=== PATIENT | female | born 1955 | race Caucasian/White ===

== ENCOUNTER → 2023-08-30 09:41 | Outpatient (REF) | payer OTHER, SELFPAY | LOC: RAD 09:41 | PROVIDERS: ATTENDING PHYSICIAN Family Medicine | DX: R05.9 Cough, unspecified (principal); F17.210 Nicotine dependence, cigarettes, uncomplicated; J40 Bronchitis, not specified as acute or chronic | CPT/HCPCS: 71046 ==

== ENCOUNTER → 2023-09-24 13:31 | Outpatient (REF) | payer OTHER, SELFPAY | LOC: RAD 13:31 | PROVIDERS: ATTENDING PHYSICIAN Family Medicine | DX: F17.210 Nicotine dependence, cigarettes, uncomplicated (principal) | CPT/HCPCS: 71271 ==

== ENCOUNTER 2024-03-13 13:05 | Inpatient (IN) | payer OTHER, SELFPAY ==
[2024-03-13] VITALS (20 sets, daily range): BP systolic 106–189; BP diastolic 77–145; BMI 18.7
--- NOTE | 2024-03-13 11:53 | ED.GENMED ---
History of Present Illness
General
Chief Complaint: Chest Pain
Source: patient and ambulance crew
Exam Limitations: none
Time Seen by Provider: 03/13/24 11:53
Nursing documentation reviewed up to this point in time: agreed with
History of Present Illness
History of Present Illness:
68-year-old female presents emergency department due to shortness of breath. Her family called the ambulance because she was having trouble breathing. She has a history of emphysema. When they arrived she was covered in sweat. EMS performed an
EKG that showed ST elevation. Prehospital STEMI alert called.
Past History
Past History
ED Past Medical History: HTN
ED Past Surgical History: Orthopedic
Social History
Tobacco: Smoker
Alcohol: Daily
Drug: None
Living: with family
Employment: Employed (Part-time)
Family History
Family History: Other (Noncontributory)
Review of Systems
Review of Systems
Allergies reviewed?: Yes
All Other Systems: Not applicable
Constitutional: Reports no symptoms
EENT: Reports no symptoms
Respiratory: Reports cough and trouble breathing
Cardiac: Reports diaphoresis
ABD/GI: Reports no symptoms
: Reports no symptoms
Musculoskeletal: Reports no symptoms
Skin: Reports no symptoms
Neurological: Reports no symptoms
Endocrine: Reports no symptoms
Hematologic/Lymphatic: Reports no symptoms
Psychiatric: Reports no symptoms
Phy Exam
Physical Exam
Physical Exam:
Physical Exam
General: CPAP in place
Neck: supple. no meningeal signs. normal posterior pharynx
Heart: s1/s2 regular rate and rhythm, no murmur. equal radial
pulses.
HEENT: Pupils equal round reactive to light, EOMI
Lungs: Moderate respiratory distress. clear bilaterally
Abdomen: normal bowel sounds. not tender. no CVAT
Neuro: alert and oriented. no focal neurological deficits cranial nerves II through XII intact
Skin: no rash
Psychiatric: well kept. interactive and cooperative
Extremities: no edema. no calf tenderness. negative homans. good distal pulses
Scores
Heart Score for Chest Pain Patients
STEMI patient?: Yes
Course
Orders/Labs/Results
Orders:
Orders
03/13/24 11:46
Electrocardiogram (*1) Urgent
Reason for Study: Chest Pain
EKG- Treatment ONCE
Complete Blood Count/With Diff Urgent
Comprehensive Metabolic Panel Urgent
Heparin 1000 Units/500 ml [Heparin] 1,000 units in 500 ml .ROUTE .STK-MED
Heparin Sodium,Porcine/Ns/Pf [Heparin 2000 Units/1000 ml] 2,000 unit in 1,000 ml .ROUTE .STK-MED
Lidocaine HCl/Pf [Xylocaine-Mpf 1% Vial] 50 mg .ROUTE .STK-MED ONE
Nitroglycerin [Tridil] 1,500 mcg .ROUTE .STK-MED ONE
Verapamil Injectable [Isoptin/Verapamil Injection] 5 mg .ROUTE .STK-MED ONE
MDM/Problems Addressed
Differential Diagnosis Includes:
STEMI, COPD exacerbation
MDM/Problems Addressed:
68-year-old female with STEMI, COPD exacerbation. STEMI alert activated. Patient taken for catheterization by Dr. Acharya. He requested heparin and aspirin. Aspirin was given prehospital. Decadron and DuoNebs were also given. Dr. Croft
requested we not give Brilinta at this time.
Chronic conditions affecting care: HTN and COPD
Acute Exacerbation and/or Progression of Chronic Illness: HTN and COPD
*Pulse Oximetry
Patient hypoxic: no
*EKG
Interpreted by ED Provider?: Yes
EKG Intrepretation Date: 03/13/24
EKG Intrepretation Time: 11:48
Interpretation: abnormal
Comparison EKG: changes noted
Heart Rate: 99
Rate: normal
Rhythm: sinus
[place]: normal axis
Interval: normal interval
QRS Pattern: normal QRS
Ischemia: ST elevation
*Outdoor Power Equipment Mechanic Interpretation
Rate: normal
Interpretation: normal
Heart Rate: 100
Rhythm: sinus
*Critical Care Note
Total Time (30-74mins, 75-104mins- exclusive of procedures): Not Applicable
Data Reviewed
Review of Other/Old Records Reveals: Operative Reports (Prior colonoscopy)
Patient Management
Social determinants of health affecting care: Living situation and Substance abuse (Tobacco and alcohol)
Discussion with other providers: Mine Car Mechanic (Test Engine Evaluator, Dr. Croft)
Escalation/DeEscalation of care consider admission/obs:
Admission to Fine Arts Teacher indicated
ED Attending Note
-
Portions of this chart may have been created with voice recognition software.� Occasional wrong word or��sound alike� substitutions may have occurred due to the inherent limitations of voice recognition software.
Discharge Plan
Departure
Patient Disposition: UPPER DOUBLER
Date of Disposition: 03/13/24
Time of Disposition: 12:01
Admit to: engineer geophysical laboratory
Presentation/result/management discussed w/ accepting MD/DO: Cardiology Dr. Croft
Patient with high blood pressure during this ER visit?: Yes
Condition: Fair
Discharge Problem:
ST elevation (STEMI) myocardial infarction, COPD exacerbation
Prescriptions:
No Action
carvedilol 6.25 MG tablet
6.25 mg PO BID
lisinopril 20 MG tablet
20 mg PO DAILY
fluticasone propionate 1 SPRAY spray,suspension
1 spray intranasal DAILY
bupropion HCl 300 MG tablet extended release 24 hr
300 mg PO DAILY
L.acidoph, paracasei,B. lactis 1 EACH capsule
1 ea PO DAILY
Referrals:
UNKNOWN,NO INTERVIEW [Family Provider] -
Discharge Date and Time
Print Language: TURKMEN
[2024-03-13 12:06] LABS: % Basophils 0.9 % (0-2); % Eosinophils 5.9 % (0-6); % Immature Granulocytes 0.8 % (0-0.5); % Lymphocytes 12.9 % (20.5-51.1); % Monocytes 6.3 % (1.7-9.3); % Neutrophils 73.2 % (42.2-75.2); Absolute Basophils 0.2 10^3/uL (0-0.2); Absolute Immature Granulocytes 0.1 10^3/uL (0-0.05); Absolute Lymphocytes 2.2 10^3/uL (1.2-3.4); Absolute Monocytes 1.1 10^3/uL (0.1-0.6); Absolute Neutrophils 12.3 10^3/uL (1.4-6.5); Hematocrit 39.2 % (37.0-47.0); Hemoglobin 13.4 g/dL (12.0-16.0); Mean Corp Hgb Conc. 34.2 g/dL (33.0-37.0); Mean Corpuscular Hgb 32.3 pg (27.0-31.0); Mean Corpuscular Volume 94.5 fL (81.0-99.0); Mean Platelet Volume 8.4 fL (7.4-10.4); Nucleated Red Blood Cells % 0 %; Platelet Count 400 10^3/uL (130-400); Red Blood Cell Count 4.15 10^6/uL (4.20-5.40); Red Cell Dist. Width 12.7 % (11.5-14.5); White Blood Cell Count 16.8 10^3/uL (4.8-10.8)
[2024-03-13 12:19] LABS: INR 1.05; PT 13.5 Sec (11.4-14.6)
[2024-03-13 12:20] LABS: APTT 27.6 Sec (23.4-35.0)
[2024-03-13 12:20] LABS: ACT-LR - POC 161 Seconds (116-155)
[2024-03-13 12:29] LABS: ALT (SGPT) 30 U/L (0-35); AST (SGOT) 76 U/L (14-36); Albumin 4.1 g/dl (3.5-5.0); Alkaline Phosphatase 59 U/L (38-126); Blood Urea Nitrogen 12 mg/dl (7-17); Calcium 8.6 mg/dl (8.4-10.2); Carbon Dioxide 22 mmol/L (22-30); Chloride 98 mmol/L (98-107); Estimated Creatinine Clearance 46 ml/min; Glucose 210 mg/dl (70-99); Potassium 6.8 mmol/L (3.5-5.1); Sodium 133 mmol/L (135-145); Total Bilirubin 0.6 mg/dl (0.2-1.3); Total Protein 6.2 g/dl (6.3-8.2); eGFR > 60.00
[2024-03-13 12:34] LABS: ACT-LR - POC 155 Seconds (116-155)
[2024-03-13] MEDS: NSS 1000 IV (13:05)
--- NOTE | 2024-03-13 13:23 | CON.CAR ---
Consultation
Consultation Request
Performing Provider: MANOJ Hsu for Feliciano Croft MD
Reason for Consultation: progressive dyspnea/EKG changes
Medical History
-
Chief Complaint: progressive dyspnea, marked diaphoresis
History of Present Illness:
68 y/o, PMH sig for HTN, HLD, impaired fasting glucose, anxiety/depression. Drinks 2 glasses wine daily, 20 year history intermittent tobacco abuse(3-5 cig/daily currently), no FH CAD/CVA/DM.
Presents with 2 week history of dyspnea, wheezing and cough with associated PND, sinus congestion and sore throat. Treated for acute sinusitis with Z-pack which provided some relief but not completely back to normal. Today, she woke with acute
progressive dyspnea and marked diaphoresis. Denies chest pain/palps/LH/dizziness. EMS was called and was found to be hypoxic with SaO2 in the 80s. She was started on bipap and eventually weaned down to 4LNC after given two duonebs and decadron.
Pre-hospital EKG with inferolateral STEMI pattern and brought to ED immediately, given asa 324mg and 3500u heparin and brought urgently to mill labor supervisor.
Past Medical History
Past Medical History: COPD (emphysema), HTN, Hypercholesterolemia and Other (impaired fasting glucose, anxiety/depression, )
Past Surgical History: None
Social History
Tobacco: Smoker (20 year intermittent history, currently 3-5 cig/daily)
Alcohol: Daily (2 glasses wine/daily)
Drug: Marijuana (daily frequent use)
Personal: Single
Living: With Family (lives with daughter/2 grandkids)
Employment: Not Employed
Family History
Family History: Reviewed & Not Pertinent
Allergies / Home Medications
Allergy/AdvReac Type Severity Reaction Status Date / Time
Penicillins Allergy Unknown Verified 03/13/24 11:49
�Medication �Instructions �Recorded �Confirmed �Type
bupropion HCl 300 mg 24 hr tablet, 300 mg PO DAILY 04/06/15 03/13/24 History
extended release
carvedilol 6.25 mg tablet 6.25 mg PO BID 04/06/15 03/13/24 History
fluticasone propionate 50 2 spray intranasal DAILY 04/06/15 03/13/24 History
mcg/actuation nasal
spray,suspension
lisinopril 20 mg tablet 30 mg PO DAILY 04/06/15 03/13/24 History
calcium carbonate 500 mg PO DAILY 03/13/24 03/13/24 History
cholecalciferol (vitamin D3) 50 50 mcg PO DAILY 03/13/24 03/13/24 History
mcg (2,000 unit) capsule (Vitamin
D3)
escitalopram oxalate 5 mg tablet 5 mg PO DAILY 03/13/24 03/13/24 History
lorazepam 0.5 mg tablet 0.5 mg PO Q6HPRN PRN anxiety 03/13/24 03/13/24 History
multivitamin 1 tab PO DAILY 03/13/24 03/13/24 History
Review of Systems
-
History Source: Patient
All other systems: Negative unless noted
Respiratory: Other (mild dyspnea)
Physical Exam
Vital Signs
Temp Pulse Resp BP Pulse Ox
97.6 F 91 20 107/82 100
03/13/24 11:45 03/13/24 12:59 03/13/24 12:59 03/13/24 12:59 03/13/24 12:59
Lab Results
03/13/24 11:56
Troponin I 4.350 ng/ml H* 03/13/24 11:57
Physical Exam
General: Well Developed
HEENT: Normocephalic
Respiratory: Other (mild dyspnea)
Cardiac: S1/S2 and Regular Rhythm
Musculoskeletal: No Edema
Skin: Warm and Dry
Neuro: AO x 3
Impression / Plan
-
68 y/o, PMH sig for HTN, HLD, impaired fasting glucose, anxiety/depression. Drinks 2 glasses wine daily, 20 year history intermittent tobacco abuse(3-5 cig/daily currently), no FH CAD/CVA/DM.
Presents with 2 week history of dyspnea, wheezing and cough with associated post nasal drip, sinus congestion and sore throat. Treated for acute sinusitis with Z-pack which provided some relief but not completely back to normal. Today, she woke with
acute progressive dyspnea and marked diaphoresis. Denies chest pain/palps/LH/dizziness. EMS was called and was found to be hypoxic with SaO2 in the 80s. She was started on bipap and eventually weaned down to 4LNC after given two duonebs and
decadron. Pre-hospital EKG with inferolateral ST elevations and brought to ED immediately, given asa 324mg and 3500u heparin and brought urgently to mill labor supervisor.
LHC 10/7- normal coronary arteries
LV Gram with apical akinesis, c/w takotsubo cardiomyopathy
IMPRESSION:
Acute Takotsubo Cardiomyopathy
Acute hypoxic respiratory failure
Hyperkalemia
HTN
HLD
Elevated fasting glucose
Anxiety/depression
ETOH/Tobacco abuse
PLAN:
Takotsubo Cardiomyopathy
Admit IVU
1st trop 4.35, trend to peak
continue aspirin 81mg daily
new start metoprolol succinate 50mg BID
2D Echo in AM
followup at [facility] at d/c
Acute hypoxic respiratory failure
less O2 requirement, tolerating 4LNC with SaO2>90%
will monitor
Hyperkalemia- 6.8- will repeat stat lab now
consider insulin, kayexalate as needed
repeat in AM
Hyperglycemia- PCP monitoring impaired fasting glucose
will add HgbA1C
likely DM and will have consult as indicated
HTN- SBP 110-120s-
monitor trends on current rx
HLD- check lipid profile in AM, statin as indicated
Substance abuse-
cessation from all tobacco/etoh/marijuana strongly encouraged
nicoderm patch, etoh w/d protocol
Anxiety/depression- continue meds, lorazepam prn
Data Reviewed
-
EKG: Tracing Personally Visualized and interpreted and Report Reviewed by me
Labs: Labs Reviewed by me and Discussed with Physician
[2024-03-13 13:25] LABS: Blood Urea Nitrogen 13 mg/dl (7-17); Calcium 9.2 mg/dl (8.4-10.2); Carbon Dioxide 22 mmol/L (22-30); Chloride 100 mmol/L (98-107); Estimated Creatinine Clearance 52 ml/min; Glucose 154 mg/dl (70-99); Potassium 5.9 mmol/L (3.5-5.1); Sodium 134 mmol/L (135-145); eGFR > 60.00
--- NOTE | 2024-03-13 13:54 | ITS.CL.CATH ---
Survey Research Associate - Catheterization
Cardiac Catheterization
Procedure Report:
LEFT HEART CATHETERIZATION
Date of Procedure: March 13, 2024
Referring: [facility] Emergency Department
PROCEDURES:
1. Left heart catheterization with coronary and single-plane left ventriculography
INDICATION: This is a 68-year-old female with a past medical history notable for chronic shortness of breath, cough, and hypertension as well as poorly controlled anxiety. She was seen by her primary care provider, Thao Douglas NP, on 02/29/2024
with complaints of increased shortness of breath. Her symptoms were felt consistent with maxillary sinusitis and she was placed on azithromycin. She was going to call and schedule an appointment with pulmonary given chronic shortness of breath.
The patient does continue to smoke somewhere between 3 and 6 cigarettes daily and family reports daily heavy marijuana use. She presented to [facility] as a prehospital STEMI alert when 911 was called after the patient developed severe
shortness of breath. Upon arrival to the house the ambulance crew found the patient who was acutely short of breath and diaphoretic. Her electrocardiogram was suggestive of an evolving inferolateral wall myocardial infarction and a prehospital
STEMI alert was activated. She denied any chest discomfort prior to her hospitalization or at the time of arrival. When EMS arrived at her home she was found to be profoundly hypoxic with oxygen saturations in the mid 80's%. She was placed on
BiPAP. Her repeat electrocardiogram demonstrated persistent inferior and anterolateral ST-T changes for which she was referred for emergent coronary angiography
ACCESS: Right common femoral artery given poor right radial pulse
HEMODYNAMICS : (mmHg)
AO (s/d) : 101/72
LV (s/d) : 101/18
LVEDP : 24
CORONARY FINDINGS
DOMINANCE: Left
LEFT MAIN: Normal
LEFT ANTERIOR DESCENDING: The LAD arises normally from the left main and runs in the anterior interventricular groove. The LAD and diagonal have only minor irregularities. The LAD does taper to a small caliber vessel and wraps completely around
the apex supplying a significant portion of the inferior wall.
CIRCUMFLEX: The circumflex is a dominant vessel giving rise to a moderate caliber OM1 that bifurcates proximally into 2 small to medium caliber daughter branches. The circumflex then continues in the AV groove giving rise to a small posterolateral
branch and PDA
RIGHT CORONARY ARTERY: Nondominant
VENTRICULOGRAPHY: Left ventriculography is performed in an DIAMOND projection. The digital single-plane left ventricular ejection fraction is visually estimated at 30%. The base of the heart moves best with mid to distal anterior, apical, and distal
inferior wall hypokinesis. The regional wall motion abnormality is most consistent with Takotsubo's type cardiomyopathy
RADIATION SUMMARY: Fluoro Time (min): 2.3, Dose (mGy): 59, DAP (Gy.cm2) : 5.4
Closure Device: 6 Belgian Angio-Seal RFA
CONCLUSIONS
1. Nonobstructive coronary disease
2. Takotsubo's type cardiomyopathy
RECOMMENDATIONS
1. Will discontinue carvedilol and push oral metoprolol as tolerated
2. Potassium was found to be elevated on admission blood work. Will hold lisinopril.
3. Continue to trend serial troponin
4. Check fasting lipid profile
5. Suspect a significant portion of the underlying shortness of breath may be associated with underlying COPD. Recommend pulmonary evaluation
Copy to: Dr. Rigo Aguilar
--- NOTE | 2024-03-13 14:33 | PTCARENOTE ---
Received patient from the labels molder after cardiac cath via R femoral artery. Oriented to the room and plan of care, reinforced post cath restrictions and length of bedrest. Dressing right groin is dry and intact with a palpable pedal pulse.
Monitoring VS, SR on the the monitor, remains in 2L NC. Daughters at the bedside, call burciaga in reach.
--- NOTE | 2024-03-13 14:54 | HPS.HSE ---
Addendum entered and electronically signed by Rosibel Acuña MD 03/13/24 17:37:
I personally performed a history and physical exam of the patient and discussed management with the resident. I reviewed the resident's note and agree with the documented findings and plan of care HPI/CC.
CVS: S1-S2 normal
Chest: CTA B/L, no wheezes
Abdomen: Soft, NT / Bowel sounds present
Extremities: No edema, normal pulses
TOOL FILER HAND: Non focal exam
CT of the lung-multiple 5 mm nodules bilaterally most of which is groundglass in nature. Mild to moderate centrilobular emphysema
# Possible cardiomyopathy
EKG reviewed by me
Trend troponin
Continue aspirin, metoprolol
Images of cath reviewed with Dr. Croft
Check echo
# Acute hypoxic respiratory failure-on 4 L of oxygen on admission
Likely secondary to COPD
Continue and check chest x-ray
Needs PFTs
Pulmonary evaluation no wheezing on exam
Sputum cultures if possible
# Acute hyperkalemia-repeat
Hold lisinopril
If repeat is high then give Lokelma
# Hyperglycemia-check hemoglobin A1c
# Hypertension-continue beta-blockers. Hold lisinopril
# Hyperlipidemia-check lipid profile
# Marijuana use, smoking-cessation counseling
# Daily alcohol use-add thiamine
# Anxiety-continue lorazepam, Wellbutrin, Lexapro
# DVT prophylaxis-Lovenox
# Full code
Discussed with cardiology
Discussed with multiple family members at bedside
Original Note:
Family Physician
-
Family Physician: Dr. Rigo Aguilar
Chief Complaint
-
SOB/diaphoresis
History of Present Illness
This is a 68-year-old female patient with PMH of HTN, HLD, impaired fasting glucose and anxiety/depression who presented to the ER with shortness of breath and diaphoresis. She states that she started to suddenly feel short of breath since last
night but worsened today morning diaphoresis. She denies any chest pain, dizziness, headaches or loss of consciousness. She also denies paroxsymal nocturnal dyspnea. She does admit to experiencing increased emotional events concerning her personal
life/family that caused her stress over the past week. She states that she can walk around fine at home but gets tired after climbing one flight of stairs but has never experienced this level of difficulty in breathing before. She used her inhaler
at home which provided mild relief.
She lives with her daughter, continues to be a current smoker and has a 40-[id number] history of smoking cigarettes. Daughter states that patient also smokes a large amount of marijuana.
EMS services was called by her family due to her SOB and EKG performed which showed STEMI. After arrival to the hospital, trops were increased and patient taken to laboratory technical specialist.
Medical History
Past Medical History
Past Medical History: Reports HTN and Hypercholesterolemia
Additional Past Medical History:
Anxiety/Depression
Past Surgical History: Reports None
Social History
Tobacco: Smoker (20 year intermittent history, currently 3-5 cig/daily)
Alcohol: Daily (2 glasses of wine)
Drug: None
Living: With Family
Family History
Family History: Not pertinent
Allergies / Home Medications
Allergies reflects when Allergies were last updated in [facility].
Home Medications with original date entered in [facility]
Allergy/Medication List:
Allergies
Allergy/AdvReac Type Severity Reaction Status Date / Time
amoxicillin [From Augmentin] Allergy Intermediate diarrhea Verified 03/13/24 14:10
clavulanic acid Allergy Intermediate diarrhea Verified 03/13/24 14:10
[From Augmentin]
Sulfa (Sulfonamide Allergy Intermediate Rash Verified 03/13/24 14:10
Antibiotics)
cefuroxime [From Ceftin] Allergy Rash Verified 03/13/24 14:10
Penicillins Allergy Hives Verified 03/13/24 14:10
Home Medications
bupropion HCl 300 mg 24 hr tablet, extended release 300 mg PO DAILY 04/06/15
carvedilol 6.25 mg tablet 6.25 mg PO BID 04/06/15
fluticasone propionate 50 mcg/actuation nasal spray,suspension 2 spray intranasal DAILY 04/06/15
lisinopril 20 mg tablet 30 mg PO DAILY 04/06/15
calcium carbonate 500 mg PO DAILY 03/13/24
cholecalciferol (vitamin D3) 50 mcg (2,000 unit) capsule (Vitamin D3) 50 mcg PO DAILY 03/13/24
escitalopram oxalate 5 mg tablet 5 mg PO DAILY 03/13/24
lorazepam 0.5 mg tablet 0.5 mg PO Q6HPRN PRN anxiety 03/13/24
multivitamin 1 tab PO DAILY 03/13/24
Review of Systems
-
Constitutional: Reports No Symptoms
EENT: Reports No Symptoms
Respiratory: Reports Trouble Breathing
Cardiac: Reports No Symptoms
Abdomen/GI: Reports No Symptoms
Neurological: Reports No Symptoms
Physical Exam
Vital Signs
Vital Signs
Temp Pulse Resp BP Pulse Ox
97.6 F 95 24 113/83 99
03/13/24 11:45 03/13/24 13:15 03/13/24 13:15 03/13/24 13:12 03/13/24 13:40
Physical Exam
General: No Apparent Distress
HEENT: NormoCephalic
Respiratory: Clear
Cardiac: S1/S2 and Regular Rhythm
GI: Soft, Non Tender and Non Distended
Musculoskeletal: No Clubbing and No Edema
Skin: Warm and Dry
Neuro: Awake, Alert and Oriented
Laboratory Results
-
03/13/24 11:56
03/13/24 12:43
Laboratory Results
PT 13.5 Sec (11.4-14.6) 03/13/24 11:56
INR 1.05 03/13/24 11:56
APTT 27.6 Sec (23.4-35.0) 03/13/24 11:56
Total Bilirubin 0.6 mg/dl (0.2-1.3) 03/13/24 11:56
AST 76 U/L (14-36) H 03/13/24 11:56
ALT 30 U/L (0-35) 03/13/24 11:56
Alkaline Phosphatase 59 U/L (38-126) 03/13/24 11:56
Troponin I 4.350 ng/ml H* 03/13/24 11:57
Impression/Plan
-
IMPRESSION: This is a 68-year-old female patient with PMH of HTN, HLD, impaired fasting glucose and anxiety/depression who presented to the ER with shortness of breath and diaphoresis. Cath showed nonobstructive coronary disease and Takotsubo's type
cardiomyopathy.
ASSESSMENT:
Takotsubo's type cardiomyopathy
CT Lung showing mild-mod emphysema 09/2023
HTN
HLD
Hyperglycemia
PLAN:
#Takotsubo's type cardiomyopathy
-EKG on adm: STEMI inferolateral
-Trops: 4.3, repeat pending
-dentures lab technician 03/13: nonobstructive coronary disease and Takotsubo's type cardiomyopathy
-Coreg 12.5mg BID started with metoprolol prn
-lipid panel ordered
-Cardiology following
-Echo scheduled to be done in AM
#Hyperkalemia
- repeat potassium pending
- Cr. 0.8
- Losartan held
- If continues to be high, will treat with lokelma
#Hyperglycemia
- HbA1c in 2020 was 5.1
- HbA1c pending
- BS 154
- continue on mod ISS
#Shortness of Breath/CT Lung showing mild-mod emphysema 09/2023
-CT lung 09/2023: Multiple sub-5 mm nodules bilaterally, most of which appear ground glass in nature. Mild to moderate centrilobular emphysema.
- hx of 20 pack years of smoking cigarettes
- Continue NC, on 2L currently
- CXR ordered
- Pulm consulted
DVT ppx: Lovenox
Full Code
--- NOTE | 2024-03-13 15:01 | PTCARENOTE ---
Patient resting in bed, right groin dressing is dry and intact. Patient SR/ST but having short bursts of SVT with rates in the 150's. M. Demond PUMP SERVICER HELPER notified, will order dose of toprol to give now.
[2024-03-13] MEDS: TOPROL XL 50 MG PO (15:16)
--- NOTE | 2024-03-13 15:19 | CM ---
Reviewed chart. Met with Mrs. Allen to review discharge plans. She states prior to admission she resides with her daughter in a two story home without any steps to enter. She states she has a full flight of steps to get to bedroom/full bathroom.
She states she has a powder room on the first floor. She states prior to admission she was independent with ambulation and adls. She states she does not have any DME in the home. She states she has a prescription plan. Medical work-up in
progress. The discharge plan is to return home with her daughter when medically stable.
[2024-03-13] MEDS: LOPRESSOR 5 MG IV ×3 (17:02→21:32)
[2024-03-13] MEDS: ATIVAN 0.5 MG PO (17:03)
[2024-03-13] MEDS: COREG 12.5 MG PO ×2 (17:34→19:32)
[2024-03-13 18:21] LABS: Potassium 5.5 mmol/L (3.5-5.1)
[2024-03-13] MEDS: LOKELMA 10 GRAM PO (19:32)
[2024-03-13] MEDS: VITAMIN B1 100 MG PO (19:32)
[2024-03-13] MEDS: NOVOLOG FLEXPEN-MODERATE RESISTANCE SC (19:32)
[2024-03-13 19:35] LABS: Vitamin B12 598 pg/ml (239-931)
--- NOTE | 2024-03-13 19:39 | PTCARENOTE ---
Patient with continued HR in the 150's and elevated diastolic BP. Cardiology aware, patient given IV lopressor as ordered x 2, medicated with prn ativan that patient takes at home as well. Patient assisted to the bathroom earlier and became very
dyspneic with activity, requested to have 2L NC. Second troponin and repeat K+ sent to the lab and Dr. Acuña notified of elevated K+. HR improved, SR in the 90's at rest and appears more comfortable. Call burciaga in reach, report given to next shift.
--- NOTE | 2024-03-13 20:52 | PTCARENOTE ---
Pt. received at change of shift. Pt. seen and assessed in room. Pt. AOx3. Tele reading NSR, occasional bursts of SVT HR in the 130s-140s, but then back down to NSR in the 70s. Pt. originally at 2L NC, when O2 assessed pt. satting at 79%. O2
increased to 4L NC O2 satting at 95%. Pt. FREGOSO with movement, including rolling in bed and walking to bathroom. Next troponin due at 12:30. Call burciaga within reach. Continuing to monitor at this time.
--- NOTE | 2024-03-13 21:41 | PTCARENOTE ---
Pt. in SVT in the 140s-150s. BP 147/128. Pt. SOB and FREGOSO, satting 100% on 4L. 5mg IV lopressor given. Continuing to monitor patient.
[2024-03-13 23:05] LABS: Glucose - Point of Care 176 mg/dl (70-99)
[2024-03-14] VITALS (8 sets, daily range): BP systolic 112–153; BP diastolic 78–114; BMI 18.7
[2024-03-14 02:59] LABS: Hematocrit 39.5 % (37.0-47.0); Hemoglobin 14.1 g/dL (12.0-16.0); Mean Corp Hgb Conc. 35.7 g/dL (33.0-37.0); Mean Corpuscular Hgb 33.3 pg (27.0-31.0); Mean Corpuscular Volume 93.4 fL (81.0-99.0); Mean Platelet Volume 8.8 fL (7.4-10.4); Platelet Count 400 10^3/uL (130-400); Red Blood Cell Count 4.23 10^6/uL (4.20-5.40); Red Cell Dist. Width 12.2 % (11.5-14.5); White Blood Cell Count 13.6 10^3/uL (4.8-10.8)
[2024-03-14 03:04] LABS: Blood Urea Nitrogen 17 mg/dl (7-17); Calcium 9.2 mg/dl (8.4-10.2); Carbon Dioxide 18 mmol/L (22-30); Chloride 101 mmol/L (98-107); Estimated Creatinine Clearance 69 ml/min; Glucose 129 mg/dl (70-99); Potassium 4.6 mmol/L (3.5-5.1); Sodium 134 mmol/L (135-145); Total Cholesterol 199 mg/dl (50-199); Triglyceride 93 mg/dl (10-149); Very Low Density Lipoprotein 18 mg/dl (0-30); eGFR > 60.00
[2024-03-14 03:14] LABS: HDL Cholesterol 116 mg/dl; LDL Cholesterol, Calculated 65 mg/dl
[2024-03-14] MEDS: NOVOLOG FLEXPEN-MODERATE RESISTANCE SC (07:57)
[2024-03-14 07:58] LABS: Glucose - Point of Care 110 mg/dl (70-99)
[2024-03-14] MEDS: LEXAPRO 5 MG PO (08:02)
[2024-03-14] MEDS: VITAMIN B1 100 MG PO ×2 (08:02→19:24)
[2024-03-14] MEDS: LOW STRENGTH ASPIRIN 81 MG PO (08:02)
[2024-03-14] MEDS: WELLBUTRIN XL (24 hour extended release) 300 MG PO (08:02)
[2024-03-14] MEDS: COREG 12.5 MG PO ×2 (08:02→19:24)
--- NOTE | 2024-03-14 08:04 | W.PN.HOSP.TC ---
Addendum entered and electronically signed by Rosibel Acuña MD 03/14/24 15:26:
I personally performed a history and physical exam of the patient and discussed management with the resident. I reviewed the resident's note and agree with the documented findings and plan of care HPI/CC except for changes in documentation
Patient was seen earlier today. Late documentation.
Bilateral wheezing noted on exam
Cardiovascular system S1-S2 appreciated
Chest x-ray reviewed by me-shows COPD.
Reduced LV systolic function. EF 30 to 35%. Basal mid cardiac segments are félix normally with severe hypokinesis of the apical segments and akinesis of the apical cap. Stage I diastolic dysfunction. Enlarged RV size with mild apical
hypokinesis. Mild to moderate MR. Moderate TR. Pulmonary pressure 31 to 40 mmHg.
COPD sedation-IV steroids
DuoNebs
Pulmonary evaluation
Continue [id number] watching for any wheezing.
Original Note:
Today's Communication/Plan
-
Echo pending
IV steroids, duonebs
Continue HTN meds
Assessment / Plan
Assessment / Plan
IMPRESSION: This is a 68-year-old female patient with PMH of HTN, HLD, impaired fasting glucose and anxiety/depression who presented to the ER with shortness of breath and diaphoresis. Cath showed nonobstructive coronary disease and Takotsubo's type
cardiomyopathy.
ASSESSMENT:
Takotsubo's type cardiomyopathy
CT Lung showing mild-mod emphysema 09/2023
HTN
HLD
Hyperglycemia
PLAN:
#Takotsubo's type cardiomyopathy
-EKG on adm: STEMI inferolateral
-Trops: 4.3 on adm, downtrending
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
-Coreg 12.5mg BID started with metoprolol prn
-lipid panel WNL
-Cardiology following, appreciated
-Continue ASA
-Echo pending
#Hyperkalemia
- repeat potassium pending
- Cr. 0.8
- Losartan held
- If continues to be high, will treat with lokelma
#Hyperglycemia
- HbA1c 5 on 03/13
- BS 129
- continue on mod ISS
#Chronic COPD with mild exacerbation
-CT lung 09/2023: Multiple sub-5 mm nodules bilaterally, most of which appear ground glass in nature. Mild to moderate centrilobular emphysema.
- hx of 20 pack years of smoking cigarettes
- Continue NC, on 4L currently
- CXR 03/14: Lungs appear hyperinflated, suggestive of COPD.
- Pulm consulted, appreciated
- Sputum culture pending
- Started dexamethasone, continue duonebs
#Essential Hypertension
- Restarted Losartan at 10mg as per cards, monitor potassium
- Continue Coreg
- Amlodipine was added, 5mg daily
- IV lasix added, mild volume overloaded at time of cath as per cards
-monitor BP
#Current Smoker/Marijuana Use
-Smoking cessation counselling
#Current Alcohol Use
-admits to drinking 2 glasses of wine daily
-Continue thiamine
#Hyperlipidemia
-Continue statin
#Anxiety/Depression
-Continue lexapro and buproprion
DVT ppx: Lovenox
Full Code
Anticipated Discharge: 24 - 48 hours
Subjective/Interval History
-
Date of Service: March 14, 2024
Patient continues to feel out of breath. Denies any CP/palpitations/dizziness.
Objective Data
-
Labs:
Laboratory Results
03/14/24
02:35
WBC 13.6 H
Hgb 14.1
Hct 39.5
Plt Count 400
Sodium 134 L
Potassium 4.6
Chloride 101
Carbon Dioxide 18 L
BUN 17
Creatinine 0.6
Glucose 129 H
Calcium 9.2
Vital Signs:
Vital Signs
Temp Pulse Resp BP Pulse Ox
97.7 F 81 16 148/106 100
03/14/24 07:53 03/14/24 07:52 03/14/24 07:53 03/14/24 07:52 03/14/24 07:53
I&O
03/13/24 03/14/24 03/15/24
06:59 06:59 06:59
Intake Total 690 / 690
Balance 690 / 690
Review of Systems
-
Respiratory: Reports Other (SOB)
Cardiac: Reports No Symptoms
Abdomen/GI: Reports No Symptoms
Neuro: Reports No Symptoms
Physical Exam
-
General: No Apparent Distress
HEENT: Normocephalic
Respiratory: Clear to Auscultation and Other (o2 2L)
Cardiac: Regular Rhythm and S1/S2
GI: Soft, Nontender and Nondistended
Musculoskeletal: No Cyanosis and No Edema
Skin: Warm and Dry
Neuro: Awake, Alert and Oriented
--- NOTE | 2024-03-14 10:17 | CON.PUL ---
Consultation
Consultation Request
Date/Time Consultation Requested: 03/14/2024-7 AM
Date/Time Consultation Performed: 03/14/2024-7:30 AM
Requesting Provider: Hospitalist
Performing Provider: Dr. Almendarez
Reason for Consultation: COPD and pulmonary nodules
Medical History
-
Chief Complaint: Shortness of breath
History of Present Illness:
68-year-old female with history of hypertension, hyperlipidemia, impaired fasting glucose, anxiety and depression who also was lifelong smoker during her adult years including significant marijuana noted to have emphysema and pulmonary nodules on
recent CT chest and admitted with shortness of breath/STEMI taken to the cardiac [facility]-noted to have cardiomyopathy- tokotsubo-pulmonary consulted for tobacco addiction, marijuana addiction, COPD and pulmonary nodules 03/14/2024. Patient states
that her shortness of breath is somewhat improved. She continues to have some dyspnea on exertion. She has never been on inhalers. She is never seen a senior partner. She got yearly low-dose lung cancer screening CAT scans. She was placed on
albuterol recently. She continues to smoke cigarettes less than half a pack of cigarettes daily. Family reports she smokes marijuana all day. She currently denies any chest pain, chest pressure, pleurisy, hemoptysis, chest congestion, productive
cough, postnasal drip, reflux, abdominal pain, anorexia, weakness, or lower extremity swelling.
Past Medical History
Past Medical History: None (Hypertension. Hyperlipidemia. Impaired fasting glucose. Anxiety. Depression. 2 glasses of wine daily. Cigarette smoker. Marijuana smoker.)
Social History
Tobacco: Other (Less than a half a pack)
Alcohol: Daily (2 glasses of wine)
Drug: Marijuana
Living: With Family
Occupational Exposures: No known asbestos exposure
Environmental Exposures: No known tuberculosis exposure
Family History
Family History: Other (Denies any emphysema, lung cancer, asthma or pulmonary fibrosis)
Allergies / Home Medications
Allergies
Allergy/AdvReac Type Severity Reaction Status Date / Time
amoxicillin [From Augmentin] Allergy diarrhea Verified 03/13/24 16:47
cefuroxime [From Ceftin] Allergy Rash Verified 03/13/24 14:10
clavulanic acid Allergy diarrhea Verified 03/13/24 16:47
[From Augmentin]
Penicillins Allergy Hives Verified 03/13/24 14:10
Sulfa (Sulfonamide Allergy Rash Verified 03/13/24 16:47
Antibiotics)
Home Medications
�Medication �Instructions �Recorded �Confirmed �Last Taken �Type
bupropion HCl 300 mg 24 hr tablet, 300 mg PO DAILY 04/06/15 03/13/24 04/06/15 History
extended release
carvedilol 6.25 mg tablet 6.25 mg PO BID 04/06/15 03/13/24 04/06/15 History
fluticasone propionate 50 2 spray intranasal DAILY 04/06/15 03/13/24 04/06/15 History
mcg/actuation nasal
spray,suspension
lisinopril 20 mg tablet 30 mg PO DAILY 04/06/15 03/13/24 04/06/15 History
calcium carbonate 500 mg PO DAILY 03/13/24 03/13/24 Unknown History
cholecalciferol (vitamin D3) 50 50 mcg PO DAILY 03/13/24 03/13/24 Unknown History
mcg (2,000 unit) capsule (Vitamin
D3)
escitalopram oxalate 5 mg tablet 5 mg PO DAILY 03/13/24 03/13/24 Unknown History
lorazepam 0.5 mg tablet 0.5 mg PO Q6HPRN PRN anxiety 03/13/24 03/13/24 Unknown History
multivitamin 1 tab PO DAILY 03/13/24 03/13/24 Unknown History
Review of Systems
-
Unable to Obtain full review of systems at this time due to: Other (Per HPI)
Vitals / Labs / Diagnostic Testing
Vital Signs
Temp Pulse Resp BP Pulse Ox
97.7 F 81 16 148/106 100
03/14/24 07:53 03/14/24 07:52 03/14/24 07:53 03/14/24 07:52 03/14/24 09:26
Lab Data
03/14/24 02:35
03/14/24 02:35
Laboratory Results
03/13/24
11:56
PT 13.5
INR 1.05
APTT 27.6
Diagnostic Testing:
Physical Exam
-
Exam:
Well-nourished and well-developed in no apparent distress
HEENT-atraumatic, normocephalic, bilateral temporal wasting and some cachexia
Neck-supple, no JVD, no bruit
Heart-regular rate and rhythm-no murmurs, rubs or gallops
Chest with diminished breath sounds, prolonged expiratory time, forced end expiratory wheezes and no crackles
Back-no tenderness
Abdomen-soft, nontender, nondistended, no hepatosplenomegaly
Extremities-no cyanosis, clubbing, edema and good peripheral pulses
Integument-intact, no rashes, lesions or ecchymosis
Neurology-alert and oriented, somewhat anxious, nonfocal motor and sensory exam
Assessment
-
68-year-old female with history of hypertension, hyperlipidemia, impaired fasting glucose, anxiety and depression who also was lifelong smoker during her adult years including significant marijuana noted to have emphysema and pulmonary nodules on
recent CT chest and admitted with shortness of breath/STEMI taken to the cardiac [facility]-noted to have cardiomyopathy- tokotsubo-pulmonary consulted for tobacco addiction, marijuana addiction, COPD and pulmonary nodules 03/14/2024.
Cardiomyopathy- tokotsubo
COPD-suspect advanced with mild acute exacerbation
Hyperkalemia
Hyperglycemia
Leukocytosis
Hyponatremia
Conditions present prior to admission:
Hypertension.
Hyperlipidemia.
Impaired fasting glucose.
COPD
Pulmonary nodules noted on low-dose lung cancer screening CT 09/24/2023
Anxiety.
Depression.
2 glasses of wine daily.
Cigarette smoker.
Marijuana smoker.
Plan
Respiratory decompensation likely related to her cardiomyopathy, however, there likely is a significant COPD component
Supplemental oxygen as needed
Assess discharge supplemental oxygen needs prior to discharge
Incentive spirometry
Decadron-will reduce to 4 mg IV every 12 hours-convert to prednisone with fairly rapid taper
Continue nebulizers
Outpatient if insurance allows an inhaler such as Anoro-LABA/LAMA in addition to albuterol may be beneficial or even Trelegy which includes ICS in addition to LABA/LAMA
Cardiology following
Cardiac catheterization results reviewed
Diuresis as tolerated
Monitor renal function, electrolytes, intake/output, lower extremity edema and weight
Replace electrolytes as needed
Smoking cessation counseling ongoing
Marijuana cessation counseling
Alcohol cessation counseling
Consider psychiatry for significant underlying anxiety
DVT prophylaxis-on Lovenox
Nutrition
Early mobilization
Reviewed with nursing as well as cardiology
Outpatient pulmonary [id number], 6-minute walk test, yearly low-dose lung cancer screening CT, follow-up on pulmonary nodules
Diagnostic data:
Chest x-ray 08/30/2023-NAD
CT chest low-dose 09/24/23-mild to moderate centrilobular emphysema within the upper lobes, 3 mm groundglass nodule right apex, 3 mm groundglass nodule right upper lobe, calcified granuloma posterior left upper lobe, ill-defined 3 mm subpleural
opacification within the posterior right upper lobe and 3 mm nodule in the left apex
Cardiac catheterization 03/13/2024-nonobstructive coronary artery disease, cardiomyopathy takotsubo type
Data Reviewed
-
EKG: Report reviewed by me
Radiology: Image personally visualized and interpreted and Report reviewed by me
CT Scan: Image personally visualized and interpreted and Report reviewed by me
Medical Tests (Nuc Med, Echo etc): Report reviewed by me
Labs: Labs reviewed by me
Old Records: Reviewed
Total Time Spent with Patient (in minutes): 65
--- NOTE | 2024-03-14 10:20 | PTCARENOTE ---
Patient sent to x-ray in a wheelchair. Dyspneic with walking and little activity. Oxygen increased to 4 liters, purse lip breathing after walking from the bathroom to the wheelchair. Inspiratory and expiratory wheezes, steroids and nebulizers
ordered. Right femoral dressing CDI, pulses weak bilaterally. Poor appetite. Daughter at bedside
[2024-03-14] MEDS: DECADRON 4 MG IV ×2 (10:40→19:23)
--- NOTE | 2024-03-14 10:43 | W.PN.CARDCBS ---
Today's Communication / Plan
-
RECOMMENDATIONS:
-Echocardiogram today
-Continue Coreg 12.5 mg bid. May consider increasing to 25 mg bid tomorrow
-Amlodipine 5mg now and daily
-Furosemide 20mg IV now. Reassess in am
-Significant hyperkalemia on 30mg: Will restart lisinopril at 10mg and monitor K closely
-Agree with IV steroids until she turns around from respiratory status
Impression / Plan
-
68 y/o, PMH sig for HTN, HLD, impaired fasting glucose, anxiety/depression. Drinks 2 glasses wine daily, 20 year history intermittent tobacco abuse(3-5 cig/daily currently), no FH CAD/CVA/DM.
Presents with 2 week history of dyspnea, wheezing and cough with associated post nasal drip, sinus congestion and sore throat. Treated for acute sinusitis with Z-pack which provided some relief but not completely back to normal. Today, she woke with
acute progressive dyspnea and marked diaphoresis. Denies chest pain/palps/LH/dizziness. EMS was called and was found to be hypoxic with SaO2 in the 80s. She was started on bipap and eventually weaned down to 4LNC after given two duonebs and
decadron. Pre-hospital EKG with inferolateral ST elevations and brought to ED immediately, given asa 324mg and 3500u heparin and brought urgently to assistant laboratory director.
C 10- normal coronary arteries
LV Gram with apical akinesis, c/w takotsubo cardiomyopathy
IMPRESSION:
-Acute Takotsubo Cardiomyopathy
-Acute/Chronic hypoxic respiratory failure
-Hyperkalemia: Resolved
-HTN: Poorly controlled
-HLD
-Elevated fasting glucose
-Anxiety/depression
-ETOH/Tobacco abuse
-Daily marijuana use; 'a lot' per family
PLAN:
Takotsubo Cardiomyopathy with LV dysfunction
Push oral beta candie as HR and BP tolerate
1st trop 4.35- trending down
continue aspirin 81mg daily
Increased Coreg to 12.5mg bid
Will restart CIERA at lisinopril 10mg and keep an eye on potassium daily
2D Echo pending
Acute hypoxic respiratory failure
She has been seen and evaluated by pulmonary and started on IV steroids. Hopefully this will improve respiratory status
less O2 requirement, tolerating 4LNC with SaO2>90%
Hyperkalemia-
6.8-repeat 5.9-repeat 5.5 then 4.6 today
Will resume lisinopril at 10mg and follow K closely
Hypertension:
Continue Coreg 12.5 mg bid and may push further. We just increased dose from baseline yesterday
Will carefully restart lisinopril 10mg and keep an eye on K
Start amlodipine 5mg daily
A little volume overloaded yesterday at time of catheterization. Will add furosemide as well both for BP and diuresis.
Hyperglycemia- PCP monitoring impaired fasting glucose
will add HgbA1C
likely DM and will have consult as indicated
HLD- check lipid profile in AM, statin as indicated
Substance abuse-
cessation from all tobacco/etoh/marijuana strongly encouraged
nicoderm patch, etoh w/d protocol
Anxiety/depression- continue meds, lorazepam prn
Progress Note - Sod Farmer
Subjective
Date of Service: March 14, 2024
Still short of breath
Objective
Labs:
03/14/24 02:35
03/14/24 02:35
Labs
Hgb 14.1 g/dL (12.0-16.0) 03/14/24 02:35
Hct 39.5 % (37.0-47.0) 03/14/24 02:35
Plt Count 400 10^3/uL (130-400) 03/14/24 02:35
PT 13.5 Sec (11.4-14.6) 03/13/24 11:56
INR 1.05 03/13/24 11:56
APTT 27.6 Sec (23.4-35.0) 03/13/24 11:56
Sodium 134 mmol/L (135-145) L 03/14/24 02:35
Potassium 4.6 mmol/L (3.5-5.1) 03/14/24 02:35
BUN 17 mg/dl (7-17) 03/14/24 02:35
Creatinine 0.6 mg/dL (0.6-1.0) 03/14/24 02:35
Glucose 129 mg/dl (70-99) H 03/14/24 02:35
Troponins
03/13/24 03/13/24 03/13/24
11:55 11:57 17:39
Troponin I Cancelled 4.350 H* 2.230 H* D
03/14/24 03/14/24
00:31 02:35
Troponin I 1.830 H* 1.870 H*
Vital Signs and I&O:
Vital Signs
Temp Pulse Resp BP Pulse Ox
97.7 F 81 16 148/106 100
03/14/24 07:53 03/14/24 07:52 03/14/24 07:53 03/14/24 07:52 03/14/24 09:26
Vital Signs
Temp Pulse Resp BP Pulse Ox
97.7 F 81 16 148/106 100
03/14/24 07:53 03/14/24 07:52 03/14/24 07:53 03/14/24 07:52 03/14/24 09:26
Intake & Output
03/11/24 03/12/24 03/13/24 03/14/24
23:59 23:59 23:59 23:59
Intake Total 690 / 690
Balance 690 / 690
Physical Exam
Physical Exam
GEN: Thin frail elderly female. Dyspneic to conversation No acute distress
HEENT: NC/AT, sclera are anicteric
LUNGS: Poor air movement. Scattered faint wheezing.i
CV: Regular rate and rhythm. Normal S1/S2. Murmur: None
ABD : Soft, Bowel sounds are present.
EXT: No CCE
NEURO: No focal neurologic deficits
[2024-03-14] MEDS: DUONEB 3 ML INH ×3 (11:29→19:36)
[2024-03-14] MEDS: ZESTRIL 10 MG PO (11:41)
[2024-03-14] MEDS: LASIX 20 MG IV (11:41)
[2024-03-14] MEDS: NORVASC 5 MG PO (11:41)
[2024-03-14 12:36] LABS: Glucose - Point of Care 160 mg/dl (70-99)
[2024-03-14] MEDS: NOVOLOG FLEXPEN-MODERATE RESISTANCE 1 UNITS SC ×2 (13:12→16:56)
[2024-03-14 13:15] LABS: Amphetamines Negative (Negative); Barbiturates Negative (Negative); Benzodiazepines Positive (Negative); Buprenorphine Negative (Negative); Cocaine Negative (Negative); Marijuana Positive (Negative); Methadone Negative (Negative); Methamphetamines Negative (Negative); Opiates Negative (Negative); Phencyclidine Negative (Negative); Tricyclic Antidepressants Negative (Negative)
[2024-03-14 13:44] LABS: Fentanyl, Urine Negative (Negative)
[2024-03-14 16:52] LABS: Glucose - Point of Care 189 mg/dl (70-99)
[2024-03-14] MEDS: LOVENOX 40 MG SC (16:56)
--- NOTE | 2024-03-14 18:35 | PTCARENOTE ---
Received patient at 1800 from the ED. Amino gtt infusing per AUG. Purwick in place. Small bruise on left lower leg, PVD brown skin discoloration on her lower extremities. She is alert an oriented times 3, WASHOE. Lungs CTA,POX 98%, NSR HR 81, BP
159/69. Lights dimmed call burciaga in reach
--- NOTE | 2024-03-14 21:27 | PTCARENOTE ---
Pt. received at change of shift. Pt. seen and assessed in room. Pt. AOx3, now on room air, VS WNL. Pt has no complaints at this time, stating she feels 'better compared to yesterday'. RN explained plan of care to patient, pt. verbalizes
understanding. Call burciaga within reach. Continuing to monitor at this time.
[2024-03-14 21:37] LABS: Glucose - Point of Care 174 mg/dl (70-99)
[2024-03-15 04:14] VITALS: BP 133/96
[2024-03-15 04:57] LABS: % Basophils 0.2 % (0-2); % Eosinophils 0.4 % (0-6); % Immature Granulocytes 0.6 % (0-0.5); % Lymphocytes 4.7 % (20.5-51.1); % Monocytes 4.5 % (1.7-9.3); % Neutrophils 89.6 % (42.2-75.2); Absolute Basophils 0.1 10^3/uL (0-0.2); Absolute Eosinophils 0.1 10^3/uL (0-0.7); Absolute Immature Granulocytes 0.1 10^3/uL (0-0.05); Absolute Neutrophils 19.6 10^3/uL (1.4-6.5); Hematocrit 36.9 % (37.0-47.0); Hemoglobin 13.2 g/dL (12.0-16.0); Mean Corp Hgb Conc. 35.8 g/dL (33.0-37.0); Mean Corpuscular Hgb 32.2 pg (27.0-31.0); Mean Platelet Volume 8.9 fL (7.4-10.4); Nucleated Red Blood Cells % 0 %; Platelet Count 415 10^3/uL (130-400); Red Cell Dist. Width 12.3 % (11.5-14.5); White Blood Cell Count 21.9 10^3/uL (4.8-10.8)
[2024-03-15 05:23] LABS: Blood Urea Nitrogen 20 mg/dl (7-17); Calcium 9.5 mg/dl (8.4-10.2); Carbon Dioxide 24 mmol/L (22-30); Chloride 97 mmol/L (98-107); Estimated Creatinine Clearance 59 ml/min; Glucose 134 mg/dl (70-99); Potassium 4.1 mmol/L (3.5-5.1); Sodium 134 mmol/L (135-145); eGFR > 60.00
[2024-03-15 06:00] VITALS: BMI 18.6
--- NOTE | 2024-03-15 07:43 | W.PN.HOSP.TC ---
Addendum entered and electronically signed by Rosibel Acuña MD 03/15/24 16:47:
I personally performed a history and physical exam of the patient and discussed management with the resident. I reviewed the resident's note and agree with the documented findings and plan of care HPI/CC.
Patient was seen in the morning. Late documentation.
She is feeling a lot better today off of oxygen
Chest exam with no rales or wheezes noted
Continue IV diuresis per cardiology
BB
Steroid taper
Continue DuoNebs
Possible discharge tomorrow
Original Note:
Today's Communication/Plan
-
Continue HTN meds
Transitioned from dexamethasone to prednisone taper
Continue duonebs
IV lasix
Assessment / Plan
Assessment / Plan
IMPRESSION: This is a 68-year-old female patient with PMH of HTN, HLD, impaired fasting glucose and anxiety/depression who presented to the ER with shortness of breath and diaphoresis. Cath showed nonobstructive coronary disease and Takotsubo's type
cardiomyopathy.
ASSESSMENT:
Takotsubo's type cardiomyopathy
CT Lung showing mild-mod emphysema 09/2023
HTN
HLD
Hyperglycemia
PLAN:
#Takotsubo's type cardiomyopathy
-EKG on adm: STEMI inferolateral
-Trops: 4.3 on adm, downtrending (elevated on admission likely due to Takotsubo's cardiomyopathy)
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
-Coreg 12.5mg BID started with metoprolol prn
-lipid panel WNL
-Cardiology following, appreciated
-Continue ASA
-Echo on 03/14: LV ejection fraction 30-35%, Mild-moderate mitral regurgitation. Moderate tricuspid regurgitation.
#Hyperkalemia
-resolving
- Potassium WNL
- Losartan restarted at 10mg, continue
#Hyperglycemia
- HbA1c 5 on 03/13
- continue on mod ISS
#Chronic COPD with mild exacerbation
-CT lung 09/2023: Multiple sub-5 mm nodules bilaterally, most of which appear ground glass in nature. Mild to moderate centrilobular emphysema.
- hx of 20 pack years of smoking cigarettes
- Continue NC, on 4L currently
- CXR 03/14: Lungs appear hyperinflated, suggestive of COPD.
- Pulm consulted, appreciated
- Sputum culture pending
- Transitioned from dexamethasone to prednisone taper
- continue duonebs
-weaned off oxygen
#Essential Hypertension
- Continue Losartan at 10mg as per cards, monitor potassium
- Increased Coreg to 25mg BID
- Discontinued Amlodipine
- Continue IV lasix, mild volume overloaded at time of cath as per cards
-monitor BP, if okay likely for dispo to home tomorrow
#Current Smoker/Marijuana Use
-Smoking cessation counselling
-Discussed nicotine patch, pt declinded for now (will think about it)
#Current Alcohol Use
-admits to drinking 2 glasses of wine daily
-Continue thiamine
#Hyperlipidemia
-Continue statin
#Anxiety/Depression
-Continue lexapro and buproprion
Contacted patient's daughter and updated about current hospital course/plan.
DVT ppx: Lovenox
Full Code
Anticipated Discharge: 24 - 48 hours
Subjective/Interval History
-
Date of Service: March 15, 2024
Patient states that she feels much better than yesterday in regards to her SOB. Able to walk around without difficulty.
Objective Data
-
Labs:
Laboratory Results
03/15/24
04:30
WBC 21.9 H
Hgb 13.2
Hct 36.9 L
Plt Count 415 H
Sodium 134 L
Potassium 4.1
Chloride 97 L
Carbon Dioxide 24
BUN 20 H
Creatinine 0.7
Glucose 134 H
Calcium 9.5
Vital Signs:
Vital Signs
Temp Pulse Resp BP Pulse Ox
98.1 F 74 16 133/96 95
03/14/24 22:35 03/15/24 06:00 03/14/24 19:38 03/15/24 04:14 03/14/24 19:38
I&O
03/14/24 03/15/24 03/16/24
06:59 06:59 06:59
Intake Total 690 / 690 150 / 150
Output Total 1100 / 1100
Balance 690 / 690 -950 / -950
Review of Systems
-
All other systems: Reviewed and negative
Physical Exam
-
General: No Apparent Distress
HEENT: Normocephalic
Respiratory: Clear to Auscultation
Cardiac: Regular Rhythm and S1/S2
GI: Soft, Nontender and Nondistended
Musculoskeletal: No Cyanosis and No Edema
Skin: Warm and Dry
Neuro: Awake, Alert and Oriented
[2024-03-15] MEDS: DUONEB 3 ML INH ×4 (07:54→19:18)
[2024-03-15 07:56] VITALS: BP 154/99
[2024-03-15 07:59] LABS: Glucose - Point of Care 141 mg/dl (70-99)
[2024-03-15] MEDS: LEXAPRO 5 MG PO (08:15)
[2024-03-15] MEDS: WELLBUTRIN XL (24 hour extended release) 300 MG PO (08:15)
[2024-03-15] MEDS: COREG 12.5 MG PO (08:15)
[2024-03-15] MEDS: ZESTRIL 10 MG PO (08:15)
[2024-03-15] MEDS: LOW STRENGTH ASPIRIN 81 MG PO (08:15)
[2024-03-15] MEDS: NORVASC 5 MG PO (08:15)
[2024-03-15] MEDS: LASIX 20 MG IV (08:16)
[2024-03-15] MEDS: DECADRON 4 MG IV (08:16)
[2024-03-15] MEDS: NOVOLOG FLEXPEN-MODERATE RESISTANCE SC ×2 (08:17→14:21)
--- NOTE | 2024-03-15 09:06 | W.PN.PUL.V3 ---
Today's Communication / Plan
-
Wean oxygen
Increase activity
Diuresis
Change Decadron to prednisone
Outpatient pulmonary follow-up
Assessment
-
68-year-old female with history of hypertension, hyperlipidemia, impaired fasting glucose, anxiety and depression who also was lifelong smoker during her adult years including significant marijuana noted to have emphysema and pulmonary nodules on
recent CT chest and admitted with shortness of breath/STEMI taken to the cardiac Director Of Development And Marketing-noted to have cardiomyopathy- tokotsubo-pulmonary consulted for tobacco addiction, marijuana addiction, COPD and pulmonary nodules 03/14/2024.
Cardiomyopathy- tokotsubo-EF 30-35%
Moderate mitral regurgitation
COPD-suspect advanced with mild acute exacerbation
Hyperkalemia
Hyperglycemia
Leukocytosis
Hyponatremia
Conditions present prior to admission:
Hypertension.
Hyperlipidemia.
Impaired fasting glucose.
COPD
Pulmonary nodules noted on low-dose lung cancer screening CT 09/24/2023
Anxiety.
Depression.
2 glasses of wine daily.
Cigarette smoker.
Marijuana smoker.
Plan
Respiratory decompensation likely related to her cardiomyopathy, however, there likely is a significant COPD component
Supplemental oxygen as needed
Assess discharge supplemental oxygen needs prior to discharge
Incentive spirometry
Change Decadron to prednisone with taper
Continue nebulizers-DuoNebs
Outpatient if insurance allows an inhaler such as Anoro-LABA/LAMA in addition to albuterol may be beneficial or even Trelegy which includes ICS in addition to LABA/LAMA
Cardiology following-correspondence reviewed
Cardiac catheterization results reviewed
Diuresis as tolerated
Monitor renal function, electrolytes, intake/output, lower extremity edema and weight
Replace electrolytes as needed
Echocardiogram 03/14/2024-EF 30-35%, stage I diastolic dysfunction, enlarged right ventricular size at the base 4.1 cm with mild apical hypokinesis, moderate mitral regurgitation, PA systolic 37-40
Smoking cessation counseling ongoing
Marijuana cessation counseling
Alcohol cessation counseling
Consider psychiatry for significant underlying anxiety
DVT prophylaxis-on Lovenox
Nutrition
Early mobilization
Reviewed with nursing as well as cardiology
Outpatient pulmonary [id number], 6-minute walk test, yearly low-dose lung cancer screening CT, follow-up on pulmonary nodules
Diagnostic data:
Chest x-ray 08/30/2023-NAD
CT chest low-dose 09/24/23-mild to moderate centrilobular emphysema within the upper lobes, 3 mm groundglass nodule right apex, 3 mm groundglass nodule right upper lobe, calcified granuloma posterior left upper lobe, ill-defined 3 mm subpleural
opacification within the posterior right upper lobe and 3 mm nodule in the left apex
Cardiac catheterization 03/13/2024-nonobstructive coronary artery disease, cardiomyopathy takotsubo type
Subjective Data
-
Date of Service:
Date of Service: March 15, 2024
Chief Complaint: Pulmonary Follow Up and Dyspnea Follow Up
Subjective:
Feels better, less short of breath, likes the nebulizers, no chest pain, productive cough or abdominal pain
Review of Systems
General: Other (Per HPI)
Objective Data
Data Reviewed
Vital Signs / I&O:
Vital Signs
Temp Pulse Resp BP Pulse Ox
97.6 F 74 16 154/99 99
03/15/24 08:08 03/15/24 08:16 03/15/24 08:08 03/15/24 08:16 03/15/24 08:08
Intake and Output
03/14/24 03/15/24 03/16/24
06:59 06:59 06:59
Intake Total 690 / 690 150 / 150
Output Total 1100 / 1100
Balance 690 / 690 -950 / -950
SaO2: 99
Nasal Cannula flow liters per minute: 2
Physical Exam
General: Respiratory Distress (n) and Comfortable
HEENT: Normocephalic, Anicteric and Moist Mucous Membranes
Cardiovascular: Regular Rhythm and Murmur
Respiratory: Clear ( diminished breath sounds and prolonged expiratory time with hyperinflation) and Wheeze (Forced expiratory)
GI: Soft, Non Distended and Non Tender
Neurology: Awake, Alert and No Motor Deficits
Skin: Warm, Good Color, Cyanosis (n), Jaundice (n) and Rash (n)
Labs/Micro/Reports
Lab Data
03/15/24 04:30
03/15/24 04:30
Microbiology
03/14/24 11:52 Sputum Gram Stain - Preliminary
[2024-03-15] MEDS: DELTASONE 40 MG PO (10:26)
[2024-03-15] MEDS: VITAMIN B1 100 MG PO ×2 (10:26→19:31)
--- NOTE | 2024-03-15 10:46 | CM ---
Reviewed chart. Met with Mrs. Romero to review discharge plans. She states she is feeling better. We reviewed [facility]. She states at this time she does not feel she will need [facility]NA Services. She states she can have a first floor set-up in
needed. She states her daughter works outside the home during the day. Prior to admission she resides with her daughter in a two story home without any steps to enter. She has a full flight of steps to get to bedroom/full bathroom. She has a
powder room on the first floor. Prior to admission she was independent with ambulation and adls. She has a prescription plan. Medical work-up in progress. The discharge plan is to return home with her daughter when medically stable.
--- NOTE | 2024-03-15 10:51 | W.PN.CARDCBS ---
Addendum entered and electronically signed by Mehdi Pathak MD 03/15/24 17:08:
I saw and examined the patient.
The [employer]'s note was reviewed and I agree with the note.
Comment:
GEN: No distress, awake, Ox3
HEENT: supple, anicteric, mmm
LUNGS: CTA, no wheezes/rales
CV: Reg, S1/S2, 1/6 syst LSB, no gallop
ABD: soft, BS+, NT/ND
EXT: No edema
NEURO: Gross non-focal
SKIN: No rash
Plan: Will continue medical therapy for presumed Takotsubo.
Increase Coreg to 25 mg p.o. twice daily. Continue po Lasix.
Continue Lisinopril. D/C amlodipine
Creat 0.7
Hopeful for D/C tomorrow
Original Note:
Today's Communication / Plan
-
Increase carvedilol to 25 mg twice a day
Discontinue amlodipine
Continue gentle IV diuresis
Continue to monitor renal function electrolytes closely
Impression / Plan
-
PCP:
IMPRESSION:
-Presented 03/13/2024 with dyspnea, cough and diaphoresis
-Hypoxemia requiring BiPAP
-STEMI/Abnormal ECG, troponin, peaked 4.35
-Acute Takotsubo Cardiomyopathy
-Acute/Chronic hypoxic respiratory failure
-Hyperkalemia: Resolved
-HTN: Poorly controlled
-HLD
-Elevated fasting glucose
-Anxiety/depression
-ETOH/Tobacco abuse
-Daily marijuana use; 'a lot' per family
Echo 03/14/2024: EF 30 to 35%. Severe hypokinesis of apical segments and akinesis of apical cap. Stage I DD. Enlarged right ventricle at base 4.1 cm with mild apical hypokinesis. Low normal RV systolic function. Mild to moderate MR. Moderate
TR. PAP 37 to 40 mmHg.
LHC 03/13- normal coronary arteries
LV Gram with apical akinesis, c/w takotsubo cardiomyopathy
PLAN:
Takotsubo Cardiomyopathy with LV dysfunction
Push oral beta candie as HR and BP tolerate
peak Trop 4.35- trending down
continue aspirin 81mg daily
Increased Coreg to 25 mg bid
Continue lisinopril 10mg (this is a lower dose, was on 30 mg at home) and keep an eye on potassium daily, peak was 6.8 on admission, K+ 4.1 today
Echo findings as above consistent with Takotsubo cardiomyopathy. Will need repeat echo in 3 months on GDMT
Acute hypoxic respiratory failure
She has been seen and evaluated by pulmonary and started on IV steroids. Shortness of breath has improved
Now on room air, intermittently requiring 2 L
Continue gentle diuresis with IV Lasix
Hyperkalemia-
6.8-repeat 5.9-repeat 5.5 -> 4.6-> 4.1 today
Lisinopril resumed at 10mg on 03/14 and follow K closely
Hypertension:
Increase Coreg to 25 mg bid 03/15
continue lisinopril 10mg (lower dose then was on at home) and keep an eye on K
New to amlodipine 5mg daily 03/14. Will stop Amlodipine (got dose 03/15) to allow for uptitration of Coreg
Found to be volume overloaded on cardiac catheterization. Lasix 20 mg IV added 03/14/2024. Continue diuresis
Hyperglycemia- PCP monitoring impaired fasting glucose
HgbA1C 5.0%
HLD-03/14/2024 TC 199, HDL 116, LDL 65, triglycerides 93. Would hold on statin
Substance abuse-
cessation from all tobacco/etoh/marijuana strongly encouraged
nicoderm patch, etoh w/d protocol
Anxiety/depression- continue meds, lorazepam prn
PMH 03/15/2024:
68 y/o, PMH sig for HTN, HLD, impaired fasting glucose, anxiety/depression. Drinks 2 glasses wine daily, 20 year history intermittent tobacco abuse(3-5 cig/daily currently), no FH CAD/CVA/DM.
Presents with 2 week history of dyspnea, wheezing and cough with associated post nasal drip, sinus congestion and sore throat. Treated for acute sinusitis with Z-pack which provided some relief but not completely back to normal. Today, she woke with
acute progressive dyspnea and marked diaphoresis. Denies chest pain/palps/LH/dizziness. EMS was called and was found to be hypoxic with SaO2 in the 80s. She was started on bipap and eventually weaned down to 4LNC after given two duonebs and
decadron. Pre-hospital EKG with inferolateral ST elevations and brought to ED immediately, given asa 324mg and 3500u heparin and brought urgently to quality lab technician.
Progress Note - Weight Count Operator
Subjective
Date of Service: March 15, 2024
Patient seen and examined. Patient resting comfortably in bed. Getting nebulizer treatment. Reports she has been able to ambulate without chest pain or shortness of breath. Now on room air.
Objective
Labs:
03/15/24 04:30
03/15/24 04:30
Labs
Hgb 13.2 g/dL (12.0-16.0) 03/15/24 04:30
Hct 36.9 % (37.0-47.0) L 03/15/24 04:30
Plt Count 415 10^3/uL (130-400) H 03/15/24 04:30
PT 13.5 Sec (11.4-14.6) 03/13/24 11:56
INR 1.05 03/13/24 11:56
APTT 27.6 Sec (23.4-35.0) 03/13/24 11:56
Sodium 134 mmol/L (135-145) L 03/15/24 04:30
Potassium 4.1 mmol/L (3.5-5.1) 03/15/24 04:30
BUN 20 mg/dl (7-17) H 03/15/24 04:30
Creatinine 0.7 mg/dL (0.6-1.0) 03/15/24 04:30
Glucose 134 mg/dl (70-99) H 03/15/24 04:30
Troponins
03/13/24 03/13/24 03/13/24
11:55 11:57 17:39
Troponin I Cancelled 4.350 H* 2.230 H* D
03/14/24 03/14/24
00:31 02:35
Troponin I 1.830 H* 1.870 H*
Vital Signs and I&O:
Vital Signs
Temp Pulse Resp BP Pulse Ox
97.6 F 90 16 154/99 99
03/15/24 08:08 03/15/24 08:45 03/15/24 08:08 03/15/24 08:16 03/15/24 09:06
Vital Signs
Temp Pulse Resp BP Pulse Ox
97.6 F 90 16 154/99 99
03/15/24 08:08 03/15/24 08:45 03/15/24 08:08 03/15/24 08:16 03/15/24 09:06
Intake & Output
03/13/24 03/14/24 03/15/24 03/16/24
06:59 06:59 06:59 06:59
Intake Total 690 / 690 150 / 150 750 / 750
Output Total 1100 / 1100
Balance 690 / 690 -950 / -950 750 / 750
Physical Exam
Physical Exam
GEN: No distress, awake, Ox3, lying in bed getting nebulizer
HEENT: supple, anicteric, mmm
LUNGS: Mildly diminished otherwise CTA, no wheezes/rales
CV: Reg, S1/S2, 1/6 syst murmur
ABD: soft, BS+, NT/ND
EXT: No edema, clubbing or cyanosis
NEURO: Gross non-focal
SKIN: No rash, clubbing or cyanosis
[2024-03-15 11:03] VITALS: BP 125/79
--- NOTE | 2024-03-15 11:08 | PN.CDI ---
Addendum entered and electronically signed by Rosibel Acuña MD 03/15/24 16:45:
Documentation is complete at this time.
Original Note:
CDI
- -
CDI:
Physician Documentation Request
Admit Date: 03/13/24 13:05
Dear Doctor Rani Olivarez,
Patient admitted with Takotsubo's type cardiomyopathy.
ED note, 'ST elevation (STEMI) myocardial infarction.'
03/14 PN, 'EKG on adm: STEMI inferolateral....-[facility] [employer] dental lab technician 03/13: nonobstructive coronary disease and Takotsubo's type cardiomyopathy.'
03/15 Cardiology note, 'Acute Takotsubo Cardiomyopathy.'
Due to conflicting documentation, please clarify in your note the diagnosis associated with the elevated troponin levels:
Acute Takotsubo cardiomyopathy
STEMI
Other
Use of terms such as suspected, likely, concern for, or probable (associated with a specific diagnosis that is being evaluated, monitored, or treated as if it exists) are acceptable and can be coded in the inpatient setting, when documented at the
time of discharge.
Thank you,
Bailee HEART,RN,CCDS
CDI Specialist
Available via [employer] text
Please use your independent medical judgment in providing your response.
[2024-03-15] MEDS: ATIVAN 0.5 MG PO ×2 (12:18→19:31)
[2024-03-15 13:51] LABS: Glucose - Point of Care 145 mg/dl (70-99)
[2024-03-15 15:43] VITALS: BP 139/85
[2024-03-15 17:56] LABS: Glucose - Point of Care 154 mg/dl (70-99)
[2024-03-15] MEDS: LOVENOX 40 MG SC (17:58)
[2024-03-15] MEDS: NOVOLOG FLEXPEN-MODERATE RESISTANCE 1 UNITS SC (17:58)
[2024-03-15 19:24] VITALS: BP 127/79
[2024-03-15] MEDS: TYLENOL 650 MG PO (19:30)
[2024-03-15] MEDS: COREG 25 MG PO (19:31)
[2024-03-15 22:25] VITALS: BP 116/79
[2024-03-15 22:25] LABS: Glucose - Point of Care 145 mg/dl (70-99)
--- NOTE | 2024-03-15 23:29 | PTCARENOTE ---
Pt received start of shift, HR SR. R groin site CDI, soft. No hematoma. P c/o 'tension headache' 08/14 and anxiety. PRN ativan and tylenol administered - see AUG. Pt updated on plan of care, states understanding. Pt denies any CP/ SOB. Informed to
notify RN if any changes, call burciaga within reach.
[2024-03-16 04:11] VITALS: BP 133/87
[2024-03-16 04:40] LABS: Hematocrit 38.6 % (37.0-47.0); Hemoglobin 14.1 g/dL (12.0-16.0); Mean Corp Hgb Conc. 36.5 g/dL (33.0-37.0); Mean Corpuscular Hgb 33.2 pg (27.0-31.0); Mean Corpuscular Volume 90.8 fL (81.0-99.0); Mean Platelet Volume 8.8 fL (7.4-10.4); Platelet Count 385 10^3/uL (130-400); Red Blood Cell Count 4.25 10^6/uL (4.20-5.40); Red Cell Dist. Width 11.9 % (11.5-14.5); White Blood Cell Count 23.6 10^3/uL (4.8-10.8)
[2024-03-16 05:04] LABS: Blood Urea Nitrogen 24 mg/dl (7-17); Calcium 9.8 mg/dl (8.4-10.2); Carbon Dioxide 28 mmol/L (22-30); Chloride 92 mmol/L (98-107); Estimated Creatinine Clearance 51 ml/min; Glucose 110 mg/dl (70-99); Potassium 3.9 mmol/L (3.5-5.1); Sodium 133 mmol/L (135-145); eGFR > 60.00
[2024-03-16 06:00] VITALS: BMI 17.4
[2024-03-16] MEDS: DUONEB 3 ML INH ×2 (07:29→11:26)
--- NOTE | 2024-03-16 07:36 | W.PN.HOSP.TC ---
Addendum entered and electronically signed by Rosibel Acuña MD 03/16/24 13:11:
68-year-old female with Takotsubo cardiomyopathy. Patient feels better today. She was hoping to go home. Patient was seen earlier today. Late documentation.
I personally performed a history and physical exam of the patient and discussed management with the resident. I reviewed the resident's note and agree with the documented findings and plan of care HPI/CC
Chest exam was clear
No pedal edema
Lasix changed to p.o. Patient does not endorse any shortness of breath with exertion
Repeat chest x-ray reviewed by me no infiltrates
White count repeated is coming down. Elevated white count is secondary to steroids. Patient does not have any abdominal pain, diarrhea, dysuria or fever.
Outpatient follow-up with cardiology and pulmonary
PFTs as outpatient
All prescriptions were sent to her pharmacy.
More than 30 minutes spent in discharge including
Final examination of the patient
Summarizing hospital stay
Instructions for continuing care to all relevant caregivers
Preparation of discharge records, prescriptions, and referral forms
Total time spent (in minutes): 35 min
Original Note:
Today's Communication/Plan
-
Continue PO lasix, HTN meds outpatient
Pulm and Cardiology f/u outpatient
start Trelegy upon discharge
Assessment / Plan
Assessment / Plan
IMPRESSION: This is a 68-year-old female patient with PMH of HTN, HLD, impaired fasting glucose and anxiety/depression who presented to the ER with shortness of breath and diaphoresis. Cath showed nonobstructive coronary disease and Takotsubo's type
cardiomyopathy.
ASSESSMENT:
Takotsubo's type cardiomyopathy
CT Lung showing mild-mod emphysema 09/2023
HTN
HLD
Hyperglycemia
PLAN:
#Takotsubo's type cardiomyopathy
-EKG on adm: STEMI inferolateral
-Trops: 4.3 on adm, downtrending (elevated on admission likely due to Takotsubo's cardiomyopathy)
-senior label specialist 03/13: nonobstructive coronary disease and Takotsubo's type cardiomyopathy
-Coreg 12.5mg BID started with metoprolol prn
-lipid panel WNL
-Cardiology following, appreciated
-Continue ASA
-Echo on 03/14: LV ejection fraction 30-35%, Mild-moderate mitral regurgitation. Moderate tricuspid regurgitation.
#Hyperkalemia
-resolving
- Potassium WNL
- Losartan restarted at 10mg, continue
#Hyperglycemia
- HbA1c 5 on 03/13
- continue on mod ISS
#Chronic COPD with mild exacerbation
-CT lung 09/2023: Multiple sub-5 mm nodules bilaterally, most of which appear ground glass in nature. Mild to moderate centrilobular emphysema.
- hx of 20 pack years of smoking cigarettes
- Continue NC, on 4L currently
- CXR 03/14: Lungs appear hyperinflated, suggestive of COPD.
- Repeat CXR on 03/16: No acute cardiopulmonary abnormality.
- Pulm consulted, appreciated
- Sputum culture pending
- Transitioned from dexamethasone to prednisone taper
- Repeat CBC WBC trending down- likely to steroids
- pulm f/u outpatient with Trelegy
-weaned off oxygen
- Dispo home today
#Essential Hypertension
- Continue Losartan at 10mg as per cards
- Increased Coreg to 25mg BID
- Discontinued Amlodipine
- Continue PO lasix, mild volume overloaded at time of cath as per cards
- Dispo home today
#Current Smoker/Marijuana Use
-Smoking cessation counselling
-Discussed nicotine patch, pt declinded for now (will think about it)
#Current Alcohol Use
-admits to drinking 2 glasses of wine daily
-Continue thiamine
#Hyperlipidemia
-Continue statin
#Anxiety/Depression
-Continue lexapro and buproprion
Contacted patient's daughter and updated about current hospital course/plan.
DVT ppx: Lovenox
Full Code
Anticipated Discharge: 24 - 48 hours
Subjective/Interval History
-
Date of Service: March 16, 2024
Patient feels well today and does not complain of any SOB.
Objective Data
-
Labs:
Laboratory Results
03/16/24
04:17
WBC 23.6 H
Hgb 14.1
Hct 38.6
Plt Count 385
Sodium 133 L
Potassium 3.9
Chloride 92 L
Carbon Dioxide 28
BUN 24 H
Creatinine 0.8
Glucose 110 H
Calcium 9.8
Vital Signs:
Vital Signs
Temp Pulse Resp BP Pulse Ox
98.3 F 73 18 133/87 98
03/16/24 04:11 03/16/24 04:11 03/16/24 04:11 03/16/24 04:11 03/16/24 04:11
I&O
03/15/24 03/16/24 03/17/24
06:59 06:59 06:59
Intake Total 150 / 150 990 / 990
Output Total 1100 / 1100
Balance -950 / -950 990 / 990
Review of Systems
-
All other systems: Reviewed and negative
Physical Exam
-
General: No Apparent Distress
HEENT: Normocephalic
Respiratory: Clear to Auscultation
Cardiac: Regular Rhythm and S1/S2
GI: Soft, Nontender and Nondistended
Musculoskeletal: No Cyanosis and No Edema
Skin: Warm and Dry
Neuro: Awake, Alert and Oriented
[2024-03-16 08:27] VITALS: BP 139/89
[2024-03-16 08:28] LABS: Glucose - Point of Care 112 mg/dl (70-99)
[2024-03-16] MEDS: ZESTRIL 10 MG PO (08:29)
[2024-03-16] MEDS: DELTASONE 40 MG PO (08:29)
[2024-03-16] MEDS: LEXAPRO 5 MG PO (08:29)
[2024-03-16] MEDS: LOW STRENGTH ASPIRIN 81 MG PO (08:29)
[2024-03-16] MEDS: VITAMIN B1 100 MG PO (08:29)
[2024-03-16] MEDS: COREG 25 MG PO (08:29)
[2024-03-16] MEDS: WELLBUTRIN XL (24 hour extended release) 300 MG PO (08:29)
[2024-03-16] MEDS: LASIX 20 MG PO (08:29)
[2024-03-16] MEDS: NOVOLOG FLEXPEN-MODERATE RESISTANCE SC ×2 (08:37→12:35)
--- NOTE | 2024-03-16 09:31 | W.PN.CARDCBS ---
Addendum entered and electronically signed by Vanessa Workman PA-C 03/16/24 14:35:
Upon further review of record, as cardiac catheterization was with nonobstructive coronary disease, patient is NOT a STEMI as listed below. She is Takotsubo cardiomyopathy with nonischemic myocardial injury.
Addendum entered and electronically signed by Mehdi Pathak MD 03/16/24 11:00:
I saw and examined the patient.
The Lokie Driver's note was reviewed and I agree with the note.
Comment:
GEN: No distress, awake, Ox3
HEENT: supple, anicteric, mmm
LUNGS: CTA, no wheezes/rales
CV: Reg, S1/S2, 1/6 syst LSB, no gallop
ABD: soft, BS+, NT/ND
EXT: No edema
NEURO: Gross non-focal
SKIN: No rash
Plan:
Overall feels well. Continue aspirin, Coreg, lisinopril, and Lasix.
Repeat visit medical panel in 1 week.
Hopefully with Takotsubo's her LVEF will recover.
Agree with plan for cardiac rehab. Stable for discharge
Original Note:
Today's Communication / Plan
-
asa, coreg, lisinopril 10mg daily, lasix 20mg daily
BMP early next week
cardiac rehab
OP cardiac follow up arranged
Impression / Plan
-
IMPRESSION:
-Presented 03/13/2024 with dyspnea, cough and diaphoresis
-Hypoxemia requiring BiPAP
-STEMI/Abnormal ECG, troponin, peaked 4.35
-Acute Takotsubo Cardiomyopathy
-Acute/Chronic hypoxic respiratory failure
-Acute HFrEF
-Hyperkalemia: Resolved
-HTN: Poorly controlled
-HLD
-Elevated fasting glucose
-Anxiety/depression
-ETOH/Tobacco abuse
-Daily marijuana use; 'a lot' per family
Echo 03/14/2024: EF 30 to 35%. Severe hypokinesis of apical segments and akinesis of apical cap. Stage I DD. Enlarged right ventricle at base 4.1 cm with mild apical hypokinesis. Low normal RV systolic function. Mild to moderate MR. Moderate
TR. PAP 37 to 40 mmHg.
LHC 03/13- normal coronary arteries
LV Gram with apical akinesis, c/w takotsubo cardiomyopathy
PLAN:
-Patient presented with significant shortness of breath and was found to have evidence of ST elevation on initial EKG. Underwent urgent cardiac catheterization with nonobstructive CAD, felt most likely to be consistent with Takotsubo
cardiomyopathy. Echo with hypokinesis of apical segments. Her troponin peaked at 4.35. She was also treated for acute heart failure, and pulmonary following due to concern for underlying COPD
-Outpatient Coreg uptitrated to 25 mg twice daily. Amlodipine started this admission, however then stopped to allow for increased dosing of Coreg
-Continue aspirin 81 mg daily
-Presented with hyperkalemia. Outpatient lisinopril resumed at lower dose of 10 mg daily. Not candidate for Aldactone given hyper-K. Could consider addition of SGLT2 as outpatient
-P.o. Lasix 20 mg daily upon discharge
-Repeat BMP early next week to reassess kidney function and electrolytes
-She will need repeat echocardiogram in 3 months on guideline directed medical therapy to reassess EF
-CHF education
-Cardiac rehab if candidate
-LDL 65. as cath with nonobstructive CAD will hold off on statin therapy
-cessation of ETOH/tobacco/marijuana
-OP cardiac follow up arranged
-likely for DC today. d/w resident
PM 03/15/2024:
68 y/o, PMH sig for HTN, HLD, impaired fasting glucose, anxiety/depression. Drinks 2 glasses wine daily, 20 year history intermittent tobacco abuse(3-5 cig/daily currently), no FH CAD/CVA/DM.
Presents with 2 week history of dyspnea, wheezing and cough with associated post nasal drip, sinus congestion and sore throat. Treated for acute sinusitis with Z-pack which provided some relief but not completely back to normal. Today, she woke with
acute progressive dyspnea and marked diaphoresis. Denies chest pain/palps/LH/dizziness. EMS was called and was found to be hypoxic with SaO2 in the 80s. She was started on bipap and eventually weaned down to 4LNC after given two duonebs and
decadron. Pre-hospital EKG with inferolateral ST elevations and brought to ED immediately, given asa 324mg and 3500u heparin and brought urgently to [facility].
Progress Note - Surveyor
Subjective
Date of Service: March 16, 2024
feeling well. no issues overnight
Objective
Labs:
03/16/24 04:17
Labs
Hgb 14.1 g/dL (12.0-16.0) 03/16/24 04:17
Hct 38.6 % (37.0-47.0) 03/16/24 04:17
Plt Count 385 10^3/uL (130-400) 03/16/24 04:17
PT 13.5 Sec (11.4-14.6) 03/13/24 11:56
INR 1.05 03/13/24 11:56
APTT 27.6 Sec (23.4-35.0) 03/13/24 11:56
Sodium 133 mmol/L (135-145) L 03/16/24 04:17
Potassium 3.9 mmol/L (3.5-5.1) 03/16/24 04:17
BUN 24 mg/dl (7-17) H 03/16/24 04:17
Creatinine 0.8 mg/dL (0.6-1.0) 03/16/24 04:17
Glucose 110 mg/dl (70-99) H 03/16/24 04:17
Troponins
03/13/24 03/13/24 03/13/24
11:55 11:57 17:39
Troponin I Cancelled 4.350 H* 2.230 H* D
03/14/24 03/14/24
00:31 02:35
Troponin I 1.830 H* 1.870 H*
Vital Signs and I&O:
Vital Signs
Temp Pulse Resp BP Pulse Ox
98.3 F 75 16 139/89 100
03/16/24 08:28 03/16/24 08:27 03/16/24 08:28 03/16/24 08:27 03/16/24 08:28
Vital Signs
Temp Pulse Resp BP Pulse Ox
98.3 F 75 16 139/89 100
03/16/24 08:28 03/16/24 08:27 03/16/24 08:28 03/16/24 08:27 03/16/24 08:28
Intake & Output
03/14/24 03/15/24 03/16/24 03/17/24
07:59 07:59 07:59 07:59
Intake Total 690 / 690 150 / 150 990 / 990
Output Total 1100 / 1100
Balance 690 / 690 -950 / -950 990 / 990
Physical Exam
Physical Exam
GEN: No distress, awake, alert, oriented x3
HEENT: supple, anicteric, mmm, eomi
LUNGS: mild exp wheezes
CV: Reg, S1/S2, no murmur
ABD: soft, BS+, NT/ND
EXT: No cyanosis, clubbing, edema
NEURO: Gross non-focal
SKIN: Warm, pink, dry. No rash. R groin site soft, NTTP, dressing c/d/i
--- NOTE | 2024-03-16 09:53 | W.PN.PUL.V3 ---
Today's Communication / Plan
-
Ongoing smoking cessation counseling
Prednisone taper
Nebulizers while hospitalized
Outpatient Trelegy 200 in addition to albuterol as needed
Outpatient pulmonary follow-up
Assessment
-
68-year-old female with history of hypertension, hyperlipidemia, impaired fasting glucose, anxiety and depression who also was lifelong smoker during her adult years including significant marijuana noted to have emphysema and pulmonary nodules on
recent CT chest and admitted with shortness of breath/STEMI taken to the cardiac [facility]-noted to have cardiomyopathy- tokotsubo-pulmonary consulted for tobacco addiction, marijuana addiction, COPD and pulmonary nodules 03/14/2024.
Cardiomyopathy- tokotsubo-EF 30-35%
Moderate mitral regurgitation
COPD-suspect advanced with mild acute exacerbation
Hyperkalemia
Hyperglycemia
Leukocytosis
Hyponatremia
Conditions present prior to admission:
Hypertension.
Hyperlipidemia.
Impaired fasting glucose.
COPD
Pulmonary nodules noted on low-dose lung cancer screening CT 09/24/2023
Anxiety.
Depression.
2 glasses of wine daily.
Cigarette smoker.
Marijuana smoker.
Plan
Respiratory decompensation likely related to her cardiomyopathy, however, there likely is a significant COPD component
Supplemental oxygen as needed-attempt to wean to room air
Assess discharge supplemental oxygen needs prior to discharge
Incentive spirometry
Prednisone taper
Continue nebulizers-DuoNebs
Outpatient if insurance allows an inhaler such as Anoro-LABA/LAMA in addition to albuterol may be beneficial or even Trelegy which includes ICS in addition to LABA/LAMA-discussed with case management-$47 for Anoro or Trelegy-recommend Trelegy 200-1
puff daily
Chest x-ray 03/16/2024-NAD
Cardiology following-correspondence reviewed
Cardiac catheterization results reviewed
Diuresis as tolerated
Monitor renal function, electrolytes, intake/output, lower extremity edema and weight
Replace electrolytes as needed
Echocardiogram 03/14/2024-EF 30-35%, stage I diastolic dysfunction, enlarged right ventricular size at the base 4.1 cm with mild apical hypokinesis, moderate mitral regurgitation, PA systolic 37-40
Smoking cessation counseling ongoing
Marijuana cessation counseling
Alcohol cessation counseling
Consider psychiatry for significant underlying anxiety
DVT prophylaxis-on Lovenox
Nutrition
Early mobilization
Reviewed with nursing
Outpatient pulmonary [id number], 6-minute walk test, yearly low-dose lung cancer screening CT, follow-up on pulmonary nodules
Diagnostic data:
Chest x-ray 08/30/2023-NAD
CT chest low-dose 09/24/23-mild to moderate centrilobular emphysema within the upper lobes, 3 mm groundglass nodule right apex, 3 mm groundglass nodule right upper lobe, calcified granuloma posterior left upper lobe, ill-defined 3 mm subpleural
opacification within the posterior right upper lobe and 3 mm nodule in the left apex
Cardiac catheterization 03/13/2024-nonobstructive coronary artery disease, cardiomyopathy takotsubo type
Subjective Data
-
Date of Service:
Date of Service: March 16, 2024
Chief Complaint: Pulmonary Follow Up and Dyspnea Follow Up
Subjective:
Overall shortness of breath is improved, offers no complaints of chest pain or abdominal pain
Review of Systems
General: Other (Per HPI)
Objective Data
Data Reviewed
Vital Signs / I&O:
Vital Signs
Temp Pulse Resp BP Pulse Ox
98.3 F 75 16 139/89 100
03/16/24 08:28 03/16/24 08:27 03/16/24 08:28 03/16/24 08:27 03/16/24 08:28
Intake and Output
03/15/24 03/16/24 03/17/24
06:59 06:59 06:59
Intake Total 150 / 150 990 / 990
Output Total 1100 / 1100
Balance -950 / -950 990 / 990
SaO2: 100
Nasal Cannula flow liters per minute: 100
Physical Exam
General: Respiratory Distress (n) and Comfortable
HEENT: Normocephalic, Anicteric and Moist Mucous Membranes
Cardiovascular: Regular Rhythm and Murmur
Respiratory: Clear ( diminished breath sounds and prolonged expiratory time with hyperinflation) and Wheeze (Forced expiratory)
GI: Soft, Non Distended and Non Tender
Neurology: Awake, Alert and No Motor Deficits
Skin: Warm, Good Color, Cyanosis (n), Jaundice (n) and Rash (n)
Labs/Micro/Reports
Lab Data
03/16/24 04:17
Microbiology
03/14/24 11:52 Sputum Respiratory Culture - Preliminary
Usual Respiratory Valentina
03/14/24 11:52 Sputum Gram Stain - Preliminary
[2024-03-16 10:21] LABS: Hematocrit 37.4 % (37.0-47.0); Hemoglobin 13.7 g/dL (12.0-16.0); Mean Corp Hgb Conc. 36.6 g/dL (33.0-37.0); Mean Corpuscular Hgb 33.3 pg (27.0-31.0); Mean Platelet Volume 8.8 fL (7.4-10.4); Platelet Count 412 10^3/uL (130-400); Red Blood Cell Count 4.11 10^6/uL (4.20-5.40); Red Cell Dist. Width 12.1 % (11.5-14.5); White Blood Cell Count 20.6 10^3/uL (4.8-10.8)
--- NOTE | 2024-03-16 10:34 | PTCARENOTE ---
Patient out of bed, walking in room. Loose productive cough whitish sputum. POX 100% on room air. Lungs clear, slightly diminished. SR on tele. Patient did shower and now in bed resting. Call burciaga in reach
--- NOTE | 2024-03-16 11:22 | CM ---
Reviewed chart. Met with Mrs. Romero to review discharge plans. Telephone call to her insurance to check on co-pay for inhalers Anoro-LABA/LAMA and Trelegy Inhalers. Her co-pay would be $47. 00 a month for each one. Met with Mrs. Romero to
review co-pay for inhaler and she is agreeable to the co-pay. We also discussed a [facility] Services. She is agreeable to [facility]. Telephone call to [facility] to make the referral. Sent the referral. Telephone call to
daughter Perla to review above. Telephone call to Outpatient Cardiac Rehab. to see if she would qualify for Cardiac Rehab. She would qualify for Cardiac Rehab. Medical work-up in progress. The discharge plan is to return home with her daughter "Chelsey"and [facility] when medically stable.
[2024-03-16 11:38] VITALS: BP 117/67
--- NOTE | 2024-03-16 12:10 | W.DCSUMMARY ---
Discharge Summary
Discharge Data
Date of Admission: 03/13/24
Date of Discharge: 03/16/24
-
Pending Results: No
Hospital Course
Discharging Physician : ,
Disposition : Home
Primary care physician : Dr.Paul Aguilar
Principal Discharge diagnosis : Takotsubo Cardiomyopathy, COPD
Chronic Discharge diagnosis : Hyperglycemia, HTN, hyperlipidemia, current smoker, anxiety/depression
Hospital Course : This is a 68-year-old female patient with PMH of impaired fasting glucose, HTN, hyperlipidemia, current smoker and anxiety depression who presented to the ED with SOB and diaphoresis. EKG done outside of hospital and repeat EKG
in ER showed STEMI with increased Trope troponins. Patient taken to [facility] which revealed nonobstructive coronary disease and Takotsubo's type cardiomyopathy. Patient started on metoprolol. Potassium was found to be elevated on admission blood
work and her home medication of lisinopril was held. Serial check of troponin trended downward. At the time of cath, mild volume overload was noticed. IV Lasix started. ASA started. Thiamine was also added due to patient admitting daily alcohol
use with 2 glasses of wine daily. CXR showed COPD and pulmonology was consulted. IV steroids were started initially then transition to prednisone taper. Patient was also initially on oxygen supplementation and then consequently weaned. Potassium
decreased and lisinopril restarted at a lower dose. Amlodipine was added initially to help with hypertension but later discontinued. Coreg dose was increased. Smoking cessation counseling done. Patient improved clinically with steroids and
DuoNeb.
Patient to be discharged home with prednisone taper/Trelegy/po lasix/coreg/lisinipril/ASA and follow-up with pulmonology, cardiology and PCP.
Important imaging findings :
CXR 03/14: Lungs appear hyperinflated, suggestive of COPD.
Echo 03/14: LV ejection fraction is 30-35% by Hope's method, Mild-moderate mitral regurgitation. Moderate tricuspid regurgitation. Estimated pulmonary artery pressure of 37-40 mmHg. Assuming a right atrial
pressure of 5-8 mmHg
CXR 03/16: No acute cardiothoracic abnormality.
Procedure findings :
Cath 03/13: Nonobstructive coronary disease, Takotsubo's type cardiomyopathy
Discharge Plan
-
Patient Disposition: Home (Routine Discharge)
Discharge Diagnosis/Procedures: Takotsobu's Cardiomyopathy
COPD exacerbation
Leukocytosis secondary to steroids
High blood pressure
High cholesterol
Anxiety and depression
Condition: Good
Diet: 2 Gram Sodium and Restrict fluids to 64 oz
Activity: As tolerated
Driving Restrictions: As prior to admission
Blood Work: CBC, BMP in 1 week
Others Tests: Pulmonary function testing as outpatient.
Other Services: Cardiac Rehab
Specialty Instructions: Weigh Daily- Call MD for wt gain/loss 3 lbs overnight/5 lbs in 1 week
Activity Restrictions/Additional Instructions:
Stop smoking. Outpatient cardiac rehab
Instructions: *[facility] Heart Failure Instructions
Stand Alone Forms: DC Instructions- Cath/EP Lab
Referrals:
[facility] [Outside]
Jessica Ch PA-C [Specified Professional Personl] - 03/21/24 9:40 am (You have a cardiology follow up appointment at the [place] office. Please call with questions. )
Rigo Aguilar MD [Active] - 03/23/24
Hector Almendarez MD [Active] - in two weeks (PFT, 6-minute walk test, yearly low-dose lung cancer screening CT 09/2024)
Additional Discharge Medication Instructions: Your lisinopril dose has decreased! Coreg dose increased. Take Pepcid 20 mg daily [id number] while on steroids.
Prescriptions:
New
carvedilol 25 mg Tablet
25 mg PO BID 30 Days Qty: 60 0RF
furosemide 20 mg Tablet
20 mg PO DAILY 30 Days Qty: 30 0RF
lisinopril 10 mg Tablet
10 mg PO DAILY 30 Days Qty: 30 0RF
aspirin 81 mg Tablet,Chewable
81 mg PO DAILY 30 Days Qty: 30 0RF
Trelegy Ellipta 200-62.5-25 mcg blister with device
1 inh inhalation DAILY Qty: 60 0RF
prednisone 10 mg Tablet
See Rx Instructions .ROUTE .COMPLEX Qty: 20 0RF
Rx Instructions:
Take By Mouth:
40 mg daily x2 days, 30 mg daily x2 days,
20 mg daily x2 days, 10 mg daily x2 days.
Continued
lorazepam 0.5 mg Tablet
0.5 mg PO Q6HPRN PRN (Reason: anxiety)
multivitamin Tablet
1 tab PO DAILY Qty: 0 0RF
calcium carbonate 500 mg calcium (1,250 mg) Tablet
500 mg PO DAILY Qty: 0 0RF
bupropion HCl 300 MG tablet extended release 24 hr
300 mg PO DAILY Qty: 0 0RF
escitalopram oxalate 5 mg Tablet
5 mg PO DAILY Qty: 0 0RF
cholecalciferol (vitamin D3) [Vitamin D3] 50 mcg (2,000 unit) Capsule
50 mcg PO DAILY Qty: 0 0RF
Discontinued
carvedilol 6.25 MG tablet
6.25 mg PO BID
lisinopril 20 MG tablet
30 mg PO DAILY
fluticasone propionate 1 SPRAY spray,suspension
2 spray intranasal DAILY
Discharge Orders:
Discharge Patient (As Directed); Ordered 03/16/24
Ordered By: Joselyn Olivarez
Care Plan Goals
Care Plan Goals:
Problem: Readiness for enhanced knowledge related to diagnosis and treatment plan
Goal: Understand your diagnosis and treatment plan needs, including medications if applicable.
Instructions: Know your diagnosis, underlying causes and treatment plan options, including medications if applicable. Consult with your health care team to learn about your diagnosis and treatment plan, including medications if applicable.
Discharge Date and Time
Print Language: TAMAZIGHT
[2024-03-16 12:34] LABS: Glucose - Point of Care 147 mg/dl (70-99)
[2024-03-16] MEDS: FLUAD (65 yr+) 2024-2025 FORMULA 0.5 ML IM (12:48)
[2024-03-16] MEDS: ATIVAN 0.5 MG PO (14:11)
--- NOTE | 2024-03-16 14:25 | PTCARENOTE ---
Patient mildly anxious, Ativan PO given
[2024-03-16] MEDS: DUONEB INH (14:50)
--- NOTE | 2024-03-16 15:02 | PTCARENOTE ---
Discharge teaching completed. Patient verbalized understanding. IV and telemetry removed. Prescription provided for blood work in one week. Ativan helped receive her anxiety and verbalized she has good support from her daughters. Her daughter will
be driving her home today
== END 2024-03-16 16:07 | disposition home or self-care (01) | DRG 286 ==
LOC: IVU 13:05
PROVIDERS: Internal Medicine Interventional Cardiology; Nurse Practitioner; Student in an Organized Health Care Education/Training Program; ADMITTING PHYSICIAN Hospitalist; CONSULT PHYSICIAN Internal Medicine Cardiovascular Disease; CONSULT PHYSICIAN Internal Medicine Critical Care Medicine; EMERGENCY PHYSICIAN Emergency Medicine
PROC: 4A023N7 Measurement of Cardiac Sampling and Pressure, Left Heart, Percutaneous Approach (ICD-10-PCS; 2024-03-13)
PROC: B2151ZZ Fluoroscopy of Left Heart using Low Osmolar Contrast (ICD-10-PCS; 2024-03-13)
PROC: B2111ZZ Fluoroscopy of Multiple Coronary Arteries using Low Osmolar Contrast (ICD-10-PCS; 2024-03-13)
DX: I51.81 Takotsubo syndrome (principal); J96.01 Acute respiratory failure with hypoxia; J44.1 Chronic obstructive pulmonary disease with (acute) exacerbation; I5A Non-ischemic myocardial injury (non-traumatic); I10 Essential (primary) hypertension; E78.00 Pure hypercholesterolemia, unspecified; F17.210 Nicotine dependence, cigarettes, uncomplicated; F12.90 Cannabis use, unspecified, uncomplicated; F41.9 Anxiety disorder, unspecified; J32.0 Chronic maxillary sinusitis; I25.10 Atherosclerotic heart disease of native coronary artery without angina pectoris; E87.5 Hyperkalemia
CPT/HCPCS: 71046; 80048; 80053; 80061; 80306; 80307; 82607; 82962; 83036; 84132; 84484; 85025; 85027; 85347; 85610; 85730; 87070; 87205; 90662; 93005; 93306; 93458; 94640; 99285; 99406; C1760; C1894; G0008; Q9967

== ENCOUNTER 2024-04-28 11:12 | Outpatient (RCR) | payer OTHER, SELFPAY | END 2024-04-28 23:59 | disposition home or self-care (01) | LOC: CRHB 11:12 | PROVIDERS: ATTENDING PHYSICIAN Internal Medicine Cardiovascular Disease | DX: I51.81 Takotsubo syndrome (principal); I25.2 Old myocardial infarction | CPT/HCPCS: G0422; G0423 ==

== ENCOUNTER 2024-05-26 11:57 | Outpatient (RCR) | payer OTHER, SELFPAY | END 2024-05-26 23:59 | disposition home or self-care (01) | LOC: CRHB 11:57 | PROVIDERS: ATTENDING PHYSICIAN Internal Medicine Cardiovascular Disease; FAMILY PHYSICIAN Family Medicine | DX: I25.2 Old myocardial infarction (principal); I51.81 Takotsubo syndrome | CPT/HCPCS: G0422; G0423 ==

== ENCOUNTER → 2024-06-29 13:58 | Outpatient (REF) | payer OTHER, SELFPAY | LOC: RCS 13:58 | PROVIDERS: ATTENDING PHYSICIAN Physician Assistant Medical; FAMILY PHYSICIAN Family Medicine | DX: I51.81 Takotsubo syndrome (principal) | CPT/HCPCS: 93306 ==

== ENCOUNTER 2024-07-07 11:32 | Outpatient (RCR) | payer OTHER, SELFPAY | END 2024-07-07 23:59 | disposition home or self-care (01) | LOC: CRHB 11:32 | PROVIDERS: ATTENDING PHYSICIAN Internal Medicine Cardiovascular Disease; FAMILY PHYSICIAN Family Medicine | DX: I25.10 Atherosclerotic heart disease of native coronary artery without angina pectoris (principal); I25.2 Old myocardial infarction (principal); I51.81 Takotsubo syndrome | CPT/HCPCS: G0422; G0423 ==

== ENCOUNTER 2024-08-04 11:21 | Outpatient (RCR) | payer OTHER, SELFPAY | END 2024-08-04 23:59 | disposition home or self-care (01) | LOC: CRHB 11:21 | PROVIDERS: ATTENDING PHYSICIAN Internal Medicine Cardiovascular Disease; FAMILY PHYSICIAN Family Medicine | DX: I21.01 ST elevation (STEMI) myocardial infarction involving left main coronary artery (principal); I25.2 Old myocardial infarction; I51.81 Takotsubo syndrome; I25.10 Atherosclerotic heart disease of native coronary artery without angina pectoris | CPT/HCPCS: G0422; G0423 ==

== ENCOUNTER 2025-01-18 12:47 | Inpatient (IN) | payer OTHER, SELFPAY ==
[2025-01-18] VITALS (13 sets, daily range): BP systolic 125–219; BP diastolic 69–139
[2025-01-18] MEDS: TYLENOL 650 MG PO ×4 (10:04→23:05)
[2025-01-18 10:14] LABS: Hematocrit 38.4 % (37.0-47.0); Hemoglobin 13.2 g/dL (12.0-16.0); Mean Corp Hgb Conc. 34.4 g/dL (33.0-37.0); Mean Corpuscular Volume 94.3 fL (81.0-99.0); Nucleated Red Blood Cells % 0 %; Platelet Count 343 10^3/uL (130-400); Red Cell Dist. Width 12.2 % (11.5-14.5)
[2025-01-18] MEDS: MORPHINE SULFATE 2 MG IV ×2 (10:25→11:04)
[2025-01-18 10:31] LABS: ALT (SGPT) 18 U/L (0-35); AST (SGOT) 30 U/L (14-36); Albumin 4.3 g/dl (3.5-5.0); Alkaline Phosphatase 83 U/L (38-126); Blood Urea Nitrogen 12 mg/dl (7-17); Calcium 8.8 mg/dl (8.4-10.2); Carbon Dioxide 23 mmol/L (22-30); Chloride 100 mmol/L (98-107); Glucose 113 mg/dl (70-99); Potassium 4.2 mmol/L (3.5-5.1); Sodium 128 mmol/L (135-145); Total Protein 6.7 g/dl (6.3-8.2); eGFR > 60.00
[2025-01-18] MEDS: NSS 1000 IV (10:57)
--- NOTE | 2025-01-18 10:59 | ED.GENMED ---
History of Present Illness
<Miranda Pringle PA-C - Last Filed: 01/18/25 18:47>
General
Chief Complaint: Fall
Source: patient and family (Daughter is at bedside)
Exam Limitations: none
Time Seen by Provider: 01/18/25 09:39
Nursing documentation reviewed up to this point in time: agreed with
History of Present Illness
History of Present Illness:
Patient is a 69-year-old female with history COPD, hypertension who presents the emergency department with right hip pain after fall last night. Patient states that her power was out and she fell down 2 stairs outside landing on her right hip. She
denies hitting her head. Patient was able to crawl up the 2 steps leading to the door and then yell for help. Fortunately her daughter was inside at the time and able to pull her into her chair for the evening. Patient refused transport to the
emergency department last night.
Patient has been unable to bear weight or move right hip without significant pain. She denies any numbness/tingling in right lower extremity. She denies any headache, neck pain, chest pain, abdominal pain, or shortness of breath. She denies any
preceding lightheadedness, dizziness. No history of seizures.
Patient does report having a few glass of wine prior to fall last night. She apparently drinks approximately 3 glasses/day and smokes marijuana recreationally. She is not on any oral anticoagulation.
Past History
<Miranda Pringle PA-C - Last Filed: 01/18/25 18:47>
Past History
ED Past Medical History: HTN
ED Past Surgical History: Orthopedic
Social History
Tobacco: Smoker
Alcohol: Daily
Drug: None
Living: with family
Employment: Employed (Part-time)
Family History
Family History: Other (Noncontributory)
Review of Systems
<Miranda Pringle PA-C - Last Filed: 01/18/25 18:47>
Review of Systems
Allergies reviewed?: Yes
All Other Systems: ROS reviewed and negative except as documented in HPI and ROS
Phy Exam
<Miranda Pringle PA-C - Last Filed: 01/18/25 18:47>
Physical Exam
Physical Exam:
Vitals: Hypertensive, otherwise vital signs stable. Afebrile
General: Patient is moderately uncomfortable due to pain.
Skin: Warm and dry, no rashes or lesions. Scattered ecchymoses on bilateral upper and lower extremities.
Head: Normocephalic, atraumatic
Eyes: Sclera nonicteric.
Throat: Dry mucous membranes. Protecting airway
Neck: Normal ROM, no cervical spine tenderness, no meningismus
Cardiac: Regular rate and rhythm, no murmurs.
Pulm: Normal respiratory effort, no wheezes, rales, rhonchi heard on exam
Abdomen: Abdomen soft and nontender.
Extremities: Right lower extremity shortened and externally rotated. Significant pain with both internal/external rotation of right hip, neurovascularly intact. No other obvious traumatic injuries. Full range of motion in bilateral upper
extremities and left lower extremity without pain.
Neuro: AAOx3. Grossly intact.
Psychiatric: Normal affect.
Course
<Miranda Pringle PA-C - Last Filed: 01/18/25 18:47>
Orders/Labs/Results
Orders:
Orders
01/18/25 09:52
CT Head W/o Iv Contrast Urgent
Comment:
Reason For Exam: Unwitnessed fall
Acetaminophen [Tylenol] 650 mg PO NOW STA
Hip, Right 2-3 Views [CR Hip - RT w/wo Pel 2-3 Vw*] Urgent
Comment:
Reason For Exam: Fall, Right hip pain
Include a pelvis x-ray?: Yes
01/18/25 Lunch
NPO
Allow oral meds: Yes
Allow clear liquids: No
NPO with Ice Chips: Yes
Alcohol Urgent
Complete Blood Count/With Diff Urgent
Comprehensive Metabolic Panel Urgent
Total CK [Creatine Phosphokinase] Urgent
01/18/25 10:18
Morphine Sulfate 2 mg IV NOW STA
01/18/25 10:24
Ondansetron Injectable [Zofran] 4 mg .ROUTE .STK-MED ONE
01/18/25 10:35
0.9% Sodium Chloride 1000 ml [Nss] 1,000 ml IV BOLUS
01/18/25 10:57
Morphine Sulfate 2 mg IV NOW STA
01/18/25 11:40
Electrocardiogram (*1) Urgent
Reason for Study: PreOp
EKG- Treatment ONCE
01/18/25 12:06
HYDROmorphone [Dilaudid] 0.5 mg IV NOW STA
01/18/25 12:36
Admit/Transfer Patient As Directed
Co-Sign Provider:
Level of Care: Inpatient admission
Assign to:: Medical/Surgical
Physician / Group: htay
Diagnosis: acute Rt Hip Fx, fall, acute pain dysfunction, acute Fx pain control
Reason for Hospitalization: acute Rt Hip Fx, fall, acute pain dysfunction, acute Fx pain control
At risk for ETOH WD syndrome
Expected length of stay greater than two midnights?: Yes
ELOS- Estimated Length of Stay in days: 3
I certify the patient meets the requirements for IP care: Yes
01/18/25 12:39
Code Status As Directed
Resuscitation Status: Full Code
01/18/25 12:55
HYDROmorphone [Dilaudid] 0.5 mg IV Q3HPRN PRN
HydrALAZINE [Apresoline] 10 mg IV Q4HPRN PRN
01/18/25 14:50
0.9% Sodium Chloride [Nss (Preservative Free)] See Protocol IV PRN PRN
FOLic ACID [Folvite] 1 mg PO DAILY
FOLic ACID [Folvite] 1 mg 0.9% Sodium Chloride 50 ml [Nss] 50 ml IV DAILYPRN
Lorazepam [Ativan] 0.5 mg PO Q6HPRN PRN anxiety
Lorazepam [Ativan] 2 mg IV Q1HPRN PRN
Magnesium Hydroxide [Milk of Magnesia] 30 ml PO DAILYPRN PRN
Oxycodone [Roxicodone] 5 mg PO Q4HPRN PRN
Tamsulosin [Flomax] 0.4 mg PO DAILYPRN PRN
01/18/25 14:50
Case Management Consult Once
Case Management Consult: Other
Comment: Substance abuse counseling
DIETARY IP CONSULT Routine
Reason for Consult: Nutrition support, possible refeeding guidelines
ORTHOPEDIC CONSULT Routine
Consulting Provider: Bailee Aviles I.
Was physician already notified: Yes
Reason for consult: acute Rt Hip Fx, fall, acute pain dysfunction, acute Fx pain control
Activity As Directed
Activity Level: With Assistance
Bladder Scan As Directed
Follow Bladder Retention/Intermittent Cath Algorithm?: Yes
PRN if no void in __ hours: 6
Comment: if not voiding 6 hrs upon arrival to floor, bladder scan & follow algorithm
Intake/ Output As Directed
Frequency: Per unit guidelines
MSAS SCORE As Directed
MSAS Score 0-4: Repeat MSAS every 2 hours until 0-4 for three consecutive assessments, then every 4 hours x 48
hours.
MSAS Score 5-7: For MILD withdrawl symptoms. Repeat MSAS and RASS every 2 hours
MSAS Score 8-11: For MODERATE withdrawal symptoms. Repeat MSAS and RASS every 1 hour. Consider ICU or IMU
level of care.
MSAS Score > 11: For SEVERE withdrawal symptoms. Repeat MSAS and RASS every 1 hour. Notify provider, consider
ICU level of care.
MSAS Additional Instructions: If no improvement or no decrease in score from severe to moderate within 12
hours, consult psychiatry
MSAS Notify Provider: Notify provider if patient requires more than 10 mg of Lorazepam in eight hour period.
Pneumatic Compression Sleeves As Directed
Type: Knee high
Straight Cath As Directed
Frequency: Per Retention Algorithm
Additional Instructions: straight cath as needed per acute urinary retention algorithm for 24 hrs
Additional Instructions: for bladder scan greater than 400 mL
Vital Signs As Directed
Frequency: Per unit guidelines
DX Deep Vein Thrombosis Video Routine
01/18/25 15:17
Lorazepam [Ativan] 1 mg PO Q1HPRN PRN
01/18/25 16:00
Acetaminophen [Tylenol] 650 mg PO Q4HWA
01/18/25 16:18
Urinalysis Routine
Date Specimen was Collected: 01/18/25
Time Specimen was Collected: 16:03
Urine Drug Abuse Screen Routine
Date Specimen was Collected: 01/18/25
Time Specimen was Collected: 16:03
01/18/25 16:20
Alcohol Urgent
B-Hydroxybutyrate Urgent
GGTP Urgent
Magnesium Urgent
PTT Urgent
Phosphorus Urgent
Prothrombin Time Urgent
01/18/25 20:00
Carvedilol [Coreg] 25 mg PO BID
Docusate Sodium [Colace] 100 mg PO BID
Sennosides [Senokot] 17.2 mg PO BID
Thiamine Injection 200 mg IV Q12
01/19/25 08:00
Bupropion(24Hr)Extended Releas [WELLBUTRIN XL (24 hour extended release)] 300 mg PO DAILY
Cholecalciferol (Vitamin D3) [VITAMIN D3 (cholecalciferol)] 50 mcg PO DAILY
Escitalopram Oxalate [Lexapro] 5 mg PO DAILY
Lisinopril [Zestril] 10 mg PO DAILY
01/21/25 20:00
Thiamine HCl [Vitamin B1] 100 mg PO BID
Abnormal Lab Results
01/18/25
10:00
WBC 19.5 H 10^3/uL
(4.8-10.8)
RBC 4.07 L 10^6/uL
(4.20-5.40)
MCH 32.4 H pg
(27.0-31.0)
Abs Immat Gran (auto) 0.1 H 10^3/uL
(0-0.05)
Absolute Neuts (auto) 15.8 H 10^3/uL
(1.4-6.5)
Absolute Monos (auto) 1.6 H 10^3/uL
(0.1-0.6)
Immature Gran % 0.7 H %
(0-0.5)
Neutrophils % 81.1 H %
(42.2-75.2)
Lymphocytes % 9.4 L %
(20.5-51.1)
Sodium 128 L mmol/L
(135-145)
Creatinine 0.5 L mg/dL
(0.6-1.0)
Glucose 113 H mg/dl
(70-99)
Creatine Kinase 283 H U/L
(30-135)
01/18/25 10:00
01/18/25 10:00
Vital Signs
Initial and Last Documented VS:
Initial Vital Signs
Temp Pulse Resp BP Pulse Ox
98.1 F 61 20 176/110 99
01/18/25 09:26 01/18/25 09:26 01/18/25 09:26 01/18/25 09:26 01/18/25 09:26
Last Documented Vital Signs
Temp Pulse Resp BP Pulse Ox
98.2 F 65 16 185/80 97
01/18/25 17:00 01/18/25 17:00 01/18/25 17:00 01/18/25 17:00 01/18/25 17:00
<Adrian Bonilla, DO - Last Filed: 01/18/25 11:06>
Orders/Labs/Results
Orders:
Orders
01/18/25 09:52
CT Head W/o Iv Contrast Urgent
Comment:
Reason For Exam: Unwitnessed fall
Acetaminophen [Tylenol] 650 mg PO NOW STA
Hip, Right 2-3 Views [CR Hip - RT w/wo Pel 2-3 Vw*] Urgent
Comment:
Reason For Exam: Fall, Right hip pain
Include a pelvis x-ray?: Yes
01/18/25 Lunch
NPO
Allow oral meds: Yes
Allow clear liquids: No
NPO with Ice Chips: Yes
Alcohol Urgent
Complete Blood Count/With Diff Urgent
Comprehensive Metabolic Panel Urgent
Total CK [Creatine Phosphokinase] Urgent
01/18/25 10:18
Morphine Sulfate 2 mg IV NOW STA
01/18/25 10:24
Ondansetron Injectable [Zofran] 4 mg .ROUTE .STK-MED ONE
01/18/25 10:35
0.9% Sodium Chloride 1000 ml [Nss] 1,000 ml IV BOLUS
01/18/25 10:57
Morphine Sulfate 2 mg IV NOW STA
01/18/25 11:40
Electrocardiogram (*1) Urgent
Reason for Study: PreOp
EKG- Treatment ONCE
01/18/25 12:06
HYDROmorphone [Dilaudid] 0.5 mg IV NOW STA
01/18/25 12:36
Admit/Transfer Patient As Directed
Co-Sign Provider:
Level of Care: Inpatient admission
Assign to:: Medical/Surgical
Physician / Group: htay
Diagnosis: acute Rt Hip Fx, fall, acute pain dysfunction, acute Fx pain control
Reason for Hospitalization: acute Rt Hip Fx, fall, acute pain dysfunction, acute Fx pain control
At risk for ETOH WD syndrome
Expected length of stay greater than two midnights?: Yes
ELOS- Estimated Length of Stay in days: 3
I certify the patient meets the requirements for IP care: Yes
01/18/25 12:39
Code Status As Directed
Resuscitation Status: Full Code
01/18/25 12:55
HYDROmorphone [Dilaudid] 0.5 mg IV Q3HPRN PRN
HydrALAZINE [Apresoline] 10 mg IV Q4HPRN PRN
01/18/25 14:50
0.9% Sodium Chloride [Nss (Preservative Free)] See Protocol IV PRN PRN
FOLic ACID [Folvite] 1 mg PO DAILY
FOLic ACID [Folvite] 1 mg 0.9% Sodium Chloride 50 ml [Nss] 50 ml IV DAILYPRN
Lorazepam [Ativan] 0.5 mg PO Q6HPRN PRN anxiety
Lorazepam [Ativan] 2 mg IV Q1HPRN PRN
Magnesium Hydroxide [Milk of Magnesia] 30 ml PO DAILYPRN PRN
Oxycodone [Roxicodone] 5 mg PO Q4HPRN PRN
Tamsulosin [Flomax] 0.4 mg PO DAILYPRN PRN
01/18/25 14:50
Case Management Consult Once
Case Management Consult: Other
Comment: Substance abuse counseling
DIETARY IP CONSULT Routine
Reason for Consult: Nutrition support, possible refeeding guidelines
ORTHOPEDIC CONSULT Routine
Consulting Provider: Bailee Aviles I.
Was physician already notified: Yes
Reason for consult: acute Rt Hip Fx, fall, acute pain dysfunction, acute Fx pain control
Activity As Directed
Activity Level: With Assistance
Bladder Scan As Directed
Follow Bladder Retention/Intermittent Cath Algorithm?: Yes
PRN if no void in __ hours: 6
Comment: if not voiding 6 hrs upon arrival to floor, bladder scan & follow algorithm
Intake/ Output As Directed
Frequency: Per unit guidelines
MSAS SCORE As Directed
MSAS Score 0-4: Repeat MSAS every 2 hours until 0-4 for three consecutive assessments, then every 4 hours x 48
hours.
MSAS Score 5-7: For MILD withdrawl symptoms. Repeat MSAS and RASS every 2 hours
MSAS Score 8-11: For MODERATE withdrawal symptoms. Repeat MSAS and RASS every 1 hour. Consider ICU or IMU
level of care.
MSAS Score > 11: For SEVERE withdrawal symptoms. Repeat MSAS and RASS every 1 hour. Notify provider, consider
ICU level of care.
MSAS Additional Instructions: If no improvement or no decrease in score from severe to moderate within 12
hours, consult psychiatry
MSAS Notify Provider: Notify provider if patient requires more than 10 mg of Lorazepam in eight hour period.
Pneumatic Compression Sleeves As Directed
Type: Knee high
Straight Cath As Directed
Frequency: Per Retention Algorithm
Additional Instructions: straight cath as needed per acute urinary retention algorithm for 24 hrs
Additional Instructions: for bladder scan greater than 400 mL
Vital Signs As Directed
Frequency: Per unit guidelines
DX Deep Vein Thrombosis Video Routine
01/18/25 15:17
Lorazepam [Ativan] 1 mg PO Q1HPRN PRN
01/18/25 16:00
Acetaminophen [Tylenol] 650 mg PO Q4HWA
01/18/25 16:18
Urinalysis Routine
Date Specimen was Collected: 01/18/25
Time Specimen was Collected: 16:03
Urine Drug Abuse Screen Routine
Date Specimen was Collected: 01/18/25
Time Specimen was Collected: 16:03
01/18/25 16:20
Alcohol Urgent
B-Hydroxybutyrate Urgent
GGTP Urgent
Magnesium Urgent
PTT Urgent
Phosphorus Urgent
Prothrombin Time Urgent
01/18/25 20:00
Carvedilol [Coreg] 25 mg PO BID
Docusate Sodium [Colace] 100 mg PO BID
Sennosides [Senokot] 17.2 mg PO BID
Thiamine Injection 200 mg IV Q12
01/19/25 08:00
Bupropion(24Hr)Extended Releas [WELLBUTRIN XL (24 hour extended release)] 300 mg PO DAILY
Cholecalciferol (Vitamin D3) [VITAMIN D3 (cholecalciferol)] 50 mcg PO DAILY
Escitalopram Oxalate [Lexapro] 5 mg PO DAILY
Lisinopril [Zestril] 10 mg PO DAILY
01/21/25 20:00
Thiamine HCl [Vitamin B1] 100 mg PO BID
Abnormal Lab Results
01/18/25
10:00
WBC 19.5 H 10^3/uL
(4.8-10.8)
RBC 4.07 L 10^6/uL
(4.20-5.40)
MCH 32.4 H pg
(27.0-31.0)
Abs Immat Gran (auto) 0.1 H 10^3/uL
(0-0.05)
Absolute Neuts (auto) 15.8 H 10^3/uL
(1.4-6.5)
Absolute Monos (auto) 1.6 H 10^3/uL
(0.1-0.6)
Immature Gran % 0.7 H %
(0-0.5)
Neutrophils % 81.1 H %
(42.2-75.2)
Lymphocytes % 9.4 L %
(20.5-51.1)
Sodium 128 L mmol/L
(135-145)
Creatinine 0.5 L mg/dL
(0.6-1.0)
Glucose 113 H mg/dl
(70-99)
Creatine Kinase 283 H U/L
(30-135)
01/18/25 10:00
01/18/25 10:00
Vital Signs
Initial and Last Documented VS:
Initial Vital Signs
Temp Pulse Resp BP Pulse Ox
98.1 F 61 20 176/110 99
01/18/25 09:26 01/18/25 09:26 01/18/25 09:26 01/18/25 09:26 01/18/25 09:26
Last Documented Vital Signs
Temp Pulse Resp BP Pulse Ox
98.2 F 65 16 185/80 97
01/18/25 17:00 01/18/25 17:00 01/18/25 17:00 01/18/25 17:00 01/18/25 17:00
<Miranda Pringle PA-C - Last Filed: 01/18/25 18:47>
MDM/Problems Addressed
Differential Diagnosis Includes:
Not limited to: Hip fracture, hip dislocation, intra cerebral hemorrhage, alcohol abuse, acute dehydration, rhabdomyolysis, etc.
MDM/Problems Addressed:
69-year-old female presenting with right hip pain, unable to bear weight following fall last night. She denies any known head trauma although does report having a few glasses of wine prior to fall. Her daughter was fortunately home at the time.
Patient only complains of significant pain in right hip without any neck, back pain, or neurologic symptoms. She does not wish for any rehab placement or help with alcohol use disorder. Patient hypertensive on arrival, otherwise with stable vital
signs. On exam�patient uncomfortable appearing due to pain. She has obvious deformity of right lower extremity with significant pain with range of motion although neurovascularly intact. No evidence of head or neck trauma. Cardio/pulmonary
assessment unremarkable. No evidence of abdominal trauma or other extremity injuries.
Concern for acute hip injury given history and physical exam. Given history of alcohol use and somewhat uncertain nature of fall�will obtain basic labs, head CT. Will treat pain.
Update: Leukocytosis of 19.5. She has history of elevated white count in the past. Possible reactive with no current evidence of infectious process. Chemistry reveals hyponatremia without other acute findings. CK of 283. Finding consistent with
dehydration. Urine without evidence of infection. Alcohol level undetectable. Hip x-ray shows subcapital right femoral fracture. Head CT without acute findings. Discussed with orthopedics. Patient will require admission to hospital for
surgical fixation of right hip fracture. Patient given IV fluids. Patient excepted to hospitalist service in stable condition with orthopedic consult.
Chronic conditions affecting care:
Hypertension, alcohol abuse
Acute Exacerbation and/or Progression of Chronic Illness:
Acutely hypertensive
<Miranda Pringle PA-C - Last Filed: 01/18/25 18:47>
*Radiology
Radiology exam reviewed: preliminary read by ED provider (Right hip x-ray reviewed by in-right hip fracture) and radiology read reviewed
*Pulse Oximetry
SaO2: 99
Oxygen Mode of Delivery: Room air
Patient hypoxic: no
*EKG
Interpreted by ED Provider?: Yes
EKG Intrepretation Date: 01/18/25
Interpretation: normal
Comparison EKG: changes noted
Heart Rate: 56
Rate: bradycardiac
Rhythm: sinus
[place]: normal axis
Interval: normal QT interval
QRS Pattern: normal QRS
Ischemia: no ischemia
*Poultry Raiser Interpretation
Rate: normal
Interpretation: normal
Heart Rate: 62
Rhythm: sinus
*Critical Care Note
Total Time (30-74mins, 75-104mins- exclusive of procedures): Not Applicable
<Miranda Pringle PA-C - Last Filed: 01/18/25 18:47>
Patient Management
Discussion with other providers: Hospitalist and Talent Acquisition Specialist (Case discussed with orthopedics)
Escalation/DeEscalation of care consider admission/obs:
Admit for surgical fixation of right hip fracture
ED Attending Note
<Miranda Pringle PA-C - Last Filed: 01/18/25 18:47>
-
Portions of this chart may have been created with voice recognition software.� Occasional wrong word or��sound alike� substitutions may have occurred due to the inherent limitations of voice recognition software.
<Adrian Bonilla, DO - Last Filed: 01/18/25 11:06>
ED Attending Note
Patient seen and examined by attending physician: Yes
I performed the substantive portion of visit, reviewed & personally made and approve the management plan that is documented in note by myself or DANNA.: Yes
ED Attending Note:
I have seen and evaluated the patient with a [id number] encounter. I have spoken to the advance practicer provider and involved in the medical history, the physical exam, medical decision making.
Evaluation and management service: agree unless noted differently below.
Results interpretation: agree unless noted differently below.
Focused HPI: 69-year-old female presenting for evaluation after a fall. Patient slipped on the steps last night and has right hip pain
Physical exam: Significant tenderness to right hip but distal extremity neurovascular intact
Medical Decision Making: X-ray concerning for hip fracture. Will admit for orthopedic evaluation
Discharge Plan
Departure
Patient Disposition: Admit
Date of Disposition: 01/18/25
Time of Disposition: 11:43
Presentation/result/management discussed w/ accepting MD/DO: Hospitalist
Discharge Problem:
Closed right hip fracture, Hyponatremia
Interventions
Interventions:
*Risk Screen - Suicide Last Done: 01/18/25 09:26
*Neglect/Abuse Screening Last Done: 01/18/25 14:12
*ED- Fall Risk Assessment Last Done: 01/18/25 14:12
*ED COVID-19 Vaccine History Last Done: 01/18/25 09:26
*Nursing Disposition Last Done: 01/18/25 14:30
ED-Musculoskeletal Assessment Last Done: 01/18/25 10:32
ED- Neurological Assessment Last Done: 01/18/25 10:32
ED-Skin Assessment Last Done: 01/18/25 10:32
Discharge Date and Time
Discharge Date/Time: 01/18/25 14:31
[2025-01-18] MEDS: DILAUDID 0.5 MG IV ×5 (12:15→23:05)
--- NOTE | 2025-01-18 12:31 | HPS.HSE ---
Family Physician
-
Family Physician: Rigo Aguilar
Chief Complaint
-
fall last night , Rt Hip pain
History of Present Illness
HPI
69F HX COPD, hypertension who presents the emergency department
- pw right hip pain after fall last night.
- power was out and she fell down 2 stairs outside landing on her right hip.
- denies hitting her head.
- was able to crawl up the 2 steps leading to the door and then yell for help.
- Fortunately her daughter was inside at the time and able to pull her into her chair for the evening. Patient refused transport to the emergency department last night.
- has been unable to bear weight or move right hip without significant pain.
- report having a few glass of wine prior to fall last night.
- She apparently drinks approximately 3 glasses/day and smokes marijuana recreationally.
- She is not on any oral anticoagulation.
ROS
She denies any numbness/tingling in right lower extremity.
She denies any headache, neck pain, chest pain, abdominal pain, or shortness of breath. She denies any preceding lightheadedness, dizziness.
- No history of seizures.
Medical History
Past Medical History
Past Medical History: Reports HTN and Hypercholesterolemia
Additional Past Medical History:
Anxiety/Depression
Past Surgical History: Reports None
Social History
Tobacco: Smoker (20 year intermittent history, currently 3-5 cig/daily)
Alcohol: Daily (2 glasses of wine)
Drug: None
Living: With Family
Family History
Family History: Not pertinent
Allergies / Home Medications
Allergies reflects when Allergies were last updated in [facility].
Home Medications with original date entered in [facility]
Allergy/Medication List:
Allergies
Allergy/AdvReac Type Severity Reaction Status Date / Time
amoxicillin [From Augmentin] Allergy Intermediate diarrhea Verified 03/13/24 14:10
clavulanic acid Allergy Intermediate diarrhea Verified 03/13/24 14:10
[From Augmentin]
Sulfa (Sulfonamide Allergy Intermediate Rash Verified 03/13/24 14:10
Antibiotics)
cefuroxime [From Ceftin] Allergy Rash Verified 03/13/24 14:10
Penicillins Allergy Hives Verified 03/13/24 14:10
Home Medications
bupropion HCl 300 mg 24 hr tablet, extended release 300 mg PO DAILY 04/06/15
carvedilol 6.25 mg tablet 6.25 mg PO BID 04/06/15
fluticasone propionate 50 mcg/actuation nasal spray,suspension 2 spray intranasal DAILY 04/06/15
lisinopril 20 mg tablet 30 mg PO DAILY 04/06/15
calcium carbonate 500 mg PO DAILY 03/13/24
cholecalciferol (vitamin D3) 50 mcg (2,000 unit) capsule (Vitamin D3) 50 mcg PO DAILY 03/13/24
escitalopram oxalate 5 mg tablet 5 mg PO DAILY 03/13/24
lorazepam 0.5 mg tablet 0.5 mg PO Q6HPRN PRN anxiety 03/13/24
multivitamin 1 tab PO DAILY 03/13/24
Review of Systems
-
Constitutional: Reports No Symptoms
EENT: Reports No Symptoms
Respiratory: Reports No Symptoms
Cardiac: Reports No Symptoms
Abdomen/GI: Reports No Symptoms
: Reports No Symptoms
Musculoskeletal: Reports See HPI
Skin: Reports No Symptoms
Neurological: Reports No Symptoms
Endocrine: Reports No Symptoms
Hematologic/Lymphatic: Reports No Symptoms
Psych: Reports No Symptoms
Physical Exam
Vital Signs
Vital Signs
Temp Pulse Resp BP Pulse Ox
98.1 F 59 12 219/100 98
01/18/25 09:26 01/18/25 11:45 01/18/25 11:45 01/18/25 11:05 01/18/25 11:45
Physical Exam
General: Conversant and Pain; No Fever or Chills
HEENT: NormoCephalic, Anicteric and Moist mucous membranes
Respiratory: Clear; No Wheezes
Cardiac: S1/S2, Regular Rhythm, Bradycardia (on Carvedilol ) and Other (HTN urgency )
Breast: Deferred by me
GI: Soft, Non Tender and Non Distended
Rectal: Deferred by Provider
Genito-urinary: Deferred by me
Musculoskeletal: Other (Rt Hip deformity )
Skin: Warm and Dry; No Rash
Neuro: AO x 3
Psych: Calm
Laboratory Results
-
01/18/25 10:00
01/18/25 10:00
Laboratory Results
Total Bilirubin 0.9 mg/dl (0.2-1.3) 01/18/25 10:00
AST 30 U/L (14-36) 01/18/25 10:00
ALT 18 U/L (0-35) 01/18/25 10:00
Alkaline Phosphatase 83 U/L (38-126) 01/18/25 10:00
Data Reviewed
-
Diagnostic Radiology: Report Reviewed by me
CT Scan: Report Reviewed by me
Lab Data: Labs Reviewed by me
Old Records: Reviewed
Impression/Plan
-
Vital Signs
Temp Pulse Resp BP Pulse Ox
98.1 F 59 12 219/100 98
01/18/25 09:26 01/18/25 11:45 01/18/25 11:45 01/18/25 11:05 01/18/25 11:45
Laboratory Tests
01/18/25
10:00
WBC 19.5 H
Hgb 13.2
Plt Count 343
Sodium 128 L
BUN 12
Creatinine 0.5 L
Creatine Kinase 283 H
Alcohol, Quantitative None detected
R Hip XR; Fx Rt Hip
HCT
No acute intracranial abnormality.
EKG
SINUS BRADYCARDIA
OTHERWISE NORMAL ECG
06/29/24 TTE
Nl LVEF 50-55
Normal regional wall motion. Normal left ventricular wall
thickness. Normal diastolic function.
Normal right ventricular size and function.
Mild mitral regurgitation.
Mild tricuspid regurgitation. Estimated pulmonary artery pressure of 25-30 mmHg
assuming a right atrial pressure of 3 mmHg.
Compared to prior study dated 03/14/2024, left ventricular ejection fraction has
improved and is now normal, previously LVEF 30-35%
03/14/24 TTE
LV ejection fraction is 30-35% by Hope's method, Mild-moderate mitral regurgitation.
Moderate tricuspid regurgitation. Estimated pulmonary artery pressure of 37-40 mmHg. Assuming a right atrial
pressure of 5-8 mmHg
Last hospitalist admission:
Date of Admission: 03/13/24 - Date of Discharge: 03/16/24
DC Dxs; Takotsubo Cardiomyopathy, COPD
ASSESSMENT & PLAN
Rt Hip Fx
S/P mechanical fall
HX Chr steroids use
Acute gait dysfunction
Benefits of ortho ORIF outweigh risk of Ortho surgery - hence medically acceptable to proceed for OR
- NPO
- Pending OR at 4 pm
- Fx set protocol
- BP control
- Ortho consulted
HTN urgency due to acute Fx nguyen
Bn HTN
- on WELT EDGE ROUNDER Lisinopril, Carvedilol
Anxiety
Depression
- on WELT EDGE ROUNDER Bupropion and Escitalopram
COPD HX
- cont. all OP meds
Recovered LVEF to 50-55 s/p
HX Takotsubo Cardiomyopathy
03/13/24 - 03/16/24 Hot Man which revealed nonobstructive coronary disease and Takotsubo's type cardiomyopathy.
- on ACEI and BB
HX suggestive of ETOH use disorder
- drinks approximately 3 glasses/day and smokes marijuana recreationally.
- ETOH WD prevention protocol
DVT Px: SCD
Full Code:
IP MS
[2025-01-18] MEDS: APRESOLINE 10 MG IV ×2 (13:08→17:34)
--- NOTE | 2025-01-18 15:10 | PTCARENOTE ---
Pt received from the ED via stretcher. Pt is AAOx3, HRR, lungs are clear. BP high at 178/80. Pt does report severe pain to right hip. Pt's right leg externally rotated. Pulses are within normal limits to the leg w/ fractured hip. Will medicate for
pain as ordered. Pt instructed on plan of care. Pt verbalized understanding of instructions. Call burciaga is within pain.
[2025-01-18 16:37] LABS: Urine Character Clear (Clear)
[2025-01-18 16:40] LABS: INR 0.96; PT 13.2 Sec (11.4-14.6)
[2025-01-18 16:41] LABS: APTT 30.5 Sec (23.4-35.0)
[2025-01-18 16:52] LABS: GGTP 16 U/L (12-43); Magnesium 1.7 mg/dl (1.6-2.3)
[2025-01-18] MEDS: FOLVITE 1 MG PO (16:57)
[2025-01-18] MEDS: ROXICODONE 5 MG PO (17:33)
[2025-01-18] MEDS: THIAMINE INJECTION 200 MG IV (19:45)
[2025-01-18] MEDS: COLACE 100 MG PO (19:45)
[2025-01-18] MEDS: SENOKOT 17.2 MG PO (19:45)
[2025-01-18] MEDS: COREG 25 MG PO (19:45)
[2025-01-19] VITALS (7 sets, daily range): BP systolic 121–214; BP diastolic 63–119; BMI 20.2
[2025-01-19] MEDS: DILAUDID 0.5 MG IV ×6 (02:40→21:14)
[2025-01-19] MEDS: TYLENOL 650 MG PO ×3 (03:04→20:08)
[2025-01-19] MEDS: SPIRIVA RESPIMAT 2.5 MCG 2 PUFF INH (07:21)
[2025-01-19] MEDS: SYMBICORT 160/4.5 MCG INHALER 2 PUFF INH ×2 (07:21→18:23)
[2025-01-19 07:56] LABS: Hematocrit 36.4 % (37.0-47.0); Hemoglobin 12.4 g/dL (12.0-16.0); Mean Corp Hgb Conc. 34.1 g/dL (33.0-37.0); Mean Corpuscular Volume 96.3 fL (81.0-99.0); Nucleated Red Blood Cells % 0 %; Platelet Count 311 10^3/uL (130-400); Red Cell Dist. Width 12.3 % (11.5-14.5)
[2025-01-19 08:08] LABS: ALT (SGPT) 16 U/L (0-35); AST (SGOT) 24 U/L (14-36); Albumin 3.8 g/dl (3.5-5.0); Alkaline Phosphatase 71 U/L (38-126); Blood Urea Nitrogen 12 mg/dl (7-17); Calcium 8.9 mg/dl (8.4-10.2); Carbon Dioxide 27 mmol/L (22-30); Chloride 103 mmol/L (98-107); Estimated Creatinine Clearance 63 ml/min; Glucose 111 mg/dl (70-99); Potassium 3.7 mmol/L (3.5-5.1); Sodium 131 mmol/L (135-145); Total Protein 6.1 g/dl (6.3-8.2); eGFR > 60.00
--- NOTE | 2025-01-19 08:25 | W.PN.UPDATE ---
Update Note
Progress Note Update
Patient seen this morning. Informed by [place] operating room on no availability for surgery today and pushed to 01/20/2025 for right hip arthroplasty with Dr. Hathaway
- May resume diet today and n.p.o. at midnight
- Will change orders for preparation for OR tomorrow.
--- NOTE | 2025-01-19 09:54 | PTCARENOTE ---
Patient rang. Patient had vomitted moderte amount of green liquid on her chest and blankets. States she has not eaten since Wednesday and that is why she is nauseated and vomiting. Patient cleaned up. Surgery is delayed until tomorrow so patient
able to eat and drink. G[place]ale provided and patient stated the kitchen called her to get her breakfast order.
[2025-01-19] MEDS: SENOKOT 17.2 MG PO ×2 (10:02→20:08)
--- NOTE | 2025-01-19 10:02 | CM ---
Addendum entered by Bhavna Harris RN 01/19/25 14:03:
CM consult for substance abuse received. Discussed with the patient and provided [facility] information. Patient to follow-up when stable.
Original Note:
Reviewed the chart notes and spoke with the patient at the bedside. The patient resides with her three daughters in a two story with no steps to enter. The patient reports no DME or SNF in the past, but did have [facility] after cardiac surgery. The
patient confirmed her pharmacy of choice is [facility]. The patient is expecting to go to the OR tomorrow for hip fx repair. CM continues to be available to patient/family and is monitoring medical plan for needs at discharge.
Plan: Discharge plans will depend on the patient's progress.
[2025-01-19] MEDS: VITAMIN D3 (cholecalciferol) 50 MCG PO (10:06)
[2025-01-19] MEDS: FOLVITE 1 MG PO (10:06)
[2025-01-19] MEDS: WELLBUTRIN XL (24 hour extended release) 300 MG PO (10:06)
[2025-01-19] MEDS: COREG 25 MG PO ×2 (10:07→20:09)
[2025-01-19] MEDS: COLACE 100 MG PO ×2 (10:07→20:08)
[2025-01-19] MEDS: ZESTRIL 10 MG PO (10:07)
[2025-01-19] MEDS: THIAMINE INJECTION 200 MG IV ×2 (10:08→20:08)
[2025-01-19] MEDS: LEXAPRO 5 MG PO (10:09)
[2025-01-19] MEDS: ZOFRAN 4 MG IV (10:19)
--- NOTE | 2025-01-19 11:56 | W.PN.HOSP.TC ---
Today's Communication/Plan
-
Monitor vitals
See plan
OR tomorrow
Pain control
Assessment / Plan
Assessment / Plan
General: Conversant and Pain; No Fever or Chills
HEENT: NormoCephalic, Anicteric and Moist mucous membranes
Respiratory: Clear; No Wheezes
Cardiac: S1/S2, Regular Rhythm
GI: Soft, Non Tender and Non Distended
Musculoskeletal: Other (Rt Hip deformity )
Skin: Warm and Dry; No Rash
Neuro: AO x 3
Psych: Calm
Rt Hip Fx, traumatic
S/P mechanical fall
HX Chr steroids use
Acute gait dysfunction
Benefits of ortho ORIF outweigh risk of Ortho surgery - hence medically acceptable to proceed for OR
- Fx set protocol
- BP control
- Ortho following. Plan for OR 01/20
HTN urgency due to acute Fx pain
- on MANUFACTURING MAINTENANCE TECHNICIAN Lisinopril, Carvedilol
hydralazine prn
Leukocytosis likely secondary to fall
Monitor
Anxiety
Depression
- on MANUFACTURING MAINTENANCE TECHNICIAN Bupropion and Escitalopram
COPD HX
- cont. all OP meds
Recovered LVEF to 50-55 s/p
HX Takotsubo Cardiomyopathy
03/13/24 - 03/16/24 Business Services Vice President which revealed nonobstructive coronary disease and Takotsubo's type cardiomyopathy.
- on ACEI and BB
HX suggestive of ETOH use disorder
- drinks approximately 3 glasses/day and smokes marijuana recreationally.
- ETOH WD prevention protocol
DVT Px: SCD; post OP per ortho
Full Code:
Anticipated Discharge: > 48 hours
Subjective/Interval History
-
Date of Service: January 19, 2025
Pain
Objective Data
-
Labs:
Laboratory Results
01/19/25
07:36
WBC 15.9 H
Hgb 12.4
Hct 36.4 L
Plt Count 311
Sodium 131 L
Potassium 3.7
Chloride 103
Carbon Dioxide 27
BUN 12
Creatinine 0.7
Glucose 111 H
Calcium 8.9
Total Bilirubin 1.0
AST 24
ALT 16
Alkaline Phosphatase 71
Vital Signs:
Vital Signs
Temp Pulse Resp BP Pulse Ox
98.0 F 62 20 167/80 96
01/19/25 07:40 01/19/25 07:40 01/19/25 07:40 01/19/25 07:40 01/19/25 09:45
I&O
01/18/25 01/19/25 01/20/25
06:59 06:59 06:59
Intake Total 240 / 240
Output Total 1200 / 1200
Balance -960 / -960
[2025-01-19] MEDS: TYLENOL PO ×2 (12:09→17:36)
[2025-01-19] MEDS: ROXICODONE 5 MG PO ×2 (12:09→20:07)
[2025-01-19] MEDS: APRESOLINE 10 MG IV (14:18)
[2025-01-19] MEDS: CATAPRES 0.1 MG PO (17:35)
[2025-01-20] VITALS (17 sets, daily range): BP systolic 129–190; BP diastolic 59–88; PULSE 116
[2025-01-20] MEDS: DILAUDID 0.5 MG IV ×3 (01:07→22:58)
[2025-01-20] MEDS: TYLENOL 650 MG PO ×5 (01:08→23:59)
--- NOTE | 2025-01-20 01:29 | PTCARENOTE ---
Assumed care on pt at 1900, aaox3, medicated for pain from R hip as needed, pleasant and cooperative with POC. Denies nausea/vomiting, VSS. Call burciaga within reach.
[2025-01-20 06:29] LABS: Hematocrit 36.3 % (37.0-47.0); Hemoglobin 12.2 g/dL (12.0-16.0); Mean Corp Hgb Conc. 33.6 g/dL (33.0-37.0); Mean Corpuscular Volume 96.5 fL (81.0-99.0); Nucleated Red Blood Cells % 0 %; Platelet Count 289 10^3/uL (130-400); Red Cell Dist. Width 12.6 % (11.5-14.5)
[2025-01-20 06:39] LABS: ALT (SGPT) 16 U/L (0-35); AST (SGOT) 24 U/L (14-36); Albumin 3.5 g/dl (3.5-5.0); Alkaline Phosphatase 67 U/L (38-126); Blood Urea Nitrogen 14 mg/dl (7-17); Calcium 9.1 mg/dl (8.4-10.2); Carbon Dioxide 27 mmol/L (22-30); Chloride 100 mmol/L (98-107); Estimated Creatinine Clearance 55 ml/min; Glucose 97 mg/dl (70-99); Potassium 4.2 mmol/L (3.5-5.1); Sodium 131 mmol/L (135-145); Total Protein 5.8 g/dl (6.3-8.2); eGFR > 60.00
[2025-01-20] MEDS: SYMBICORT 160/4.5 MCG INHALER INH (07:41)
[2025-01-20] MEDS: SPIRIVA RESPIMAT 2.5 MCG INH (07:41)
[2025-01-20] MEDS: TYLENOL PO ×2 (09:56→17:30)
[2025-01-20] MEDS: COLACE PO (11:03)
[2025-01-20] MEDS: THIAMINE INJECTION 200 MG IV ×2 (11:04→19:54)
[2025-01-20] MEDS: FOLVITE PO (11:04)
[2025-01-20] MEDS: LEXAPRO PO (11:04)
[2025-01-20] MEDS: SENOKOT PO (11:04)
[2025-01-20] MEDS: VITAMIN D3 (cholecalciferol) PO (11:05)
[2025-01-20] MEDS: WELLBUTRIN XL (24 hour extended release) PO (11:05)
[2025-01-20] MEDS: ZESTRIL 10 MG PO (11:05)
[2025-01-20] MEDS: COREG 25 MG PO ×2 (11:10→19:40)
--- NOTE | 2025-01-20 11:12 | W.PN.HOSP.TC ---
Today's Communication/Plan
-
Monitor vital signs see plan
PT/OT evaluation
Continue with BP meds
Continue aspirin per orthopedics
Likely will need SNF
Assessment / Plan
Assessment / Plan
General: Conversant and Pain; No Fever or Chills
HEENT: NormoCephalic, Anicteric and Moist mucous membranes
Respiratory: Clear; No Wheezes
Cardiac: S1/S2, Regular Rhythm
GI: Soft, Non Tender and Non Distended
Skin: No Rash
Neuro: AO x 3
Psych: Calm
Rt Hip Fx, traumatic
S/P mechanical fall
HX Chr steroids use
Acute gait dysfunction
Status post ORIF 01/20 with right hip arthroplasty
- Fx set protocol
- BP control
- Ortho following
Aspirin for DVT prophylaxis
PT evaluation
HTN urgency due to acute Fx pain
- on ROADS SUPERINTENDENT Lisinopril, Carvedilol
hydralazine prn
Leukocytosis likely secondary to fall
Monitor
Anxiety
Depression
- on ROADS SUPERINTENDENT Bupropion and Escitalopram
COPD HX
- cont. all OP meds
Recovered LVEF to 50-55 s/p
HX Takotsubo Cardiomyopathy
03/13/24 - 03/16/24 Flight Engineer which revealed nonobstructive coronary disease and Takotsubo's type cardiomyopathy.
- on ACEI and BB
HX suggestive of ETOH use disorder
- drinks approximately 3 glasses/day and smokes marijuana recreationally.
- ETOH WD prevention protocol
DVT Px: SCD; aspirin
Full Code:
Anticipated Discharge: 24 - 48 hours
Subjective/Interval History
-
Date of Service: January 20, 2025
Pain is improving
Objective Data
-
Labs:
Laboratory Results
01/20/25
05:42
WBC 13.3 H
Hgb 12.2
Hct 36.3 L
Plt Count 289
Sodium 131 L
Potassium 4.2
Chloride 100
Carbon Dioxide 27
BUN 14
Creatinine 0.8
Glucose 97
Calcium 9.1
Total Bilirubin 0.8
AST 24
ALT 16
Alkaline Phosphatase 67
Vital Signs:
Vital Signs
Temp Pulse Resp BP Pulse Ox
98.3 F 60 17 160/79 98
01/20/25 11:02 01/20/25 11:02 01/20/25 11:02 01/20/25 11:02 01/20/25 11:02
I&O
01/19/25 01/20/25 01/21/25
06:59 06:59 06:59
Intake Total 240 / 240 820 / 820 125 / 125
Output Total 1200 / 1200 1100 / 1100 300 / 300
Balance -960 / -960 -280 / -280 -175 / -175
[2025-01-20] MEDS: ROXICODONE 5 MG PO ×2 (12:21→19:54)
[2025-01-20] MEDS: APRESOLINE 10 MG IV ×2 (12:22→22:59)
--- NOTE | 2025-01-20 13:28 | CM ---
Met with patient and family at bedside to discuss SNF recommendation when stable for discharge. Patient is agreeable; Options identified; preferences are [facility], [facility], and [facility]; Referrals sent via [facility]
Plan: Discharge to SNF pending bed availability and Authorization approval
[2025-01-20] MEDS: ANCEF 5 IV ×2 (15:17→23:59)
[2025-01-20] MEDS: LEXAPRO 5 MG PO (15:39)
[2025-01-20] MEDS: ATIVAN 0.5 MG PO (15:39)
[2025-01-20] MEDS: WELLBUTRIN XL (24 hour extended release) 300 MG PO (15:41)
[2025-01-20] MEDS: ASPIRIN 325 MG PO (17:29)
[2025-01-20] MEDS: SYMBICORT 160/4.5 MCG INHALER 2 PUFF INH (18:18)
[2025-01-20] MEDS: COLACE 100 MG PO (19:40)
[2025-01-20] MEDS: SENOKOT 17.2 MG PO (19:40)
[2025-01-21] MEDS: ATIVAN 0.5 MG PO ×3 (00:47→22:50)
[2025-01-21] MEDS: ROXICODONE 5 MG PO ×3 (00:47→22:50)
[2025-01-21 02:48] VITALS: BP 140/60
[2025-01-21] MEDS: TYLENOL PO ×2 (03:59→13:50)
[2025-01-21 05:09] LABS: Hematocrit 32.2 % (37.0-47.0); Hemoglobin 11.0 g/dL (12.0-16.0); Mean Corp Hgb Conc. 34.2 g/dL (33.0-37.0); Mean Corpuscular Volume 95.3 fL (81.0-99.0); Nucleated Red Blood Cells % 0 %; Platelet Count 306 10^3/uL (130-400); Red Cell Dist. Width 12.2 % (11.5-14.5)
[2025-01-21 05:29] LABS: ALT (SGPT) 18 U/L (0-35); AST (SGOT) 34 U/L (14-36); Albumin 3.6 g/dl (3.5-5.0); Alkaline Phosphatase 63 U/L (38-126); Blood Urea Nitrogen 15 mg/dl (7-17); Calcium 8.7 mg/dl (8.4-10.2); Carbon Dioxide 25 mmol/L (22-30); Chloride 101 mmol/L (98-107); Estimated Creatinine Clearance 63 ml/min; Glucose 108 mg/dl (70-99); Potassium 4.3 mmol/L (3.5-5.1); Sodium 130 mmol/L (135-145); Total Protein 5.7 g/dl (6.3-8.2); eGFR > 60.00
[2025-01-21 07:20] VITALS: BP 174/77
[2025-01-21] MEDS: SPIRIVA RESPIMAT 2.5 MCG INH (08:10)
[2025-01-21] MEDS: SYMBICORT 160/4.5 MCG INHALER INH ×2 (08:11→17:57)
--- NOTE | 2025-01-21 08:35 | W.PN.ORTHO ---
Today's Communication / Plan
-
POD#1 right hip hemiarthroplasty under the direction of Dr. Hathaway
--WBAT RLE. Ambulate with walker
--Posterior hip precautions until 6-8 weeks postop
--PT/OT
--Maintain dressing. Change/reinforce as needed
--Recommend aspirin 35mg daily for 4 weeks postop for DVT prophylaxis
--Hemoglobin 11 on AM labs. Continue to trend
--Case management consult for discharge planning
--Will continue to follow along
Assessment
.
Distal Motor Intact: Yes
Dressing:
Clean, dry and intact.
Plan
.
Surgery / Date: Right hip hemiarthroplasty 01/20/25 Dr. Hathaway
DVT Prophylaxis: Aspirin
Activity:
Out of bed.
PT/OT
Subjective
.
.:
Patient resting comfortably in bed. She reports that her pain is well controlled. She was up with PT yesterday afternoon an has been to the commode
Vital Signs and Labs
.
Vital Signs and Labs:
Lab Results
01/21/25 04:14
01/21/25 04:14
Temp Pulse Resp BP Pulse Ox
98.5 F 71 16 174/77 99
01/21/25 07:20 01/21/25 07:20 01/21/25 07:20 01/21/25 07:20 01/21/25 07:20
PT 13.2 Sec (11.4-14.6) 01/18/25 16:20
INR 0.96 01/18/25 16:20
Physical Exam
-
Directed exam of the right hip performed. Primaseal dressing in place with minimal strikethrough to center. Mild tenderness to lateral hip. Thigh is soft and compressible. ROM decreased. Able to plantarflex/dorsiflex the ankle. Calf soft and
nontender. NVI distally
--- NOTE | 2025-01-21 09:40 | W.PN.HOSP.TC ---
Today's Communication/Plan
-
Monitor vital signs see plan
Pending placement
Monitor sodium
Pain control
PT/OT
Assessment / Plan
Assessment / Plan
General: Conversant and Pain; No Fever or Chills
HEENT: NormoCephalic, Anicteric and Moist mucous membranes
Respiratory: Clear; No Wheezes
Cardiac: S1/S2, Regular Rhythm
GI: Soft, Non Tender and Non Distended
Skin: No Rash
Neuro: AO x 3
Psych: Calm
Rt Hip Fx, traumatic
S/P mechanical fall
HX Chr steroids use
Acute gait dysfunction
Status post ORIF 01/20 with right hip arthroplasty
- Fx set protocol
- BP control
- Ortho following
Aspirin for DVT prophylaxis
PT evaluation recommended SNF, case managers working on placement
HTN urgency due to acute Fx pain
- on TIMBER SELECTOR Lisinopril, Carvedilol
hydralazine prn
Hyponatremia
Monitor
Constipation
Resolved
Leukocytosis likely secondary to fall
Monitor, does have chronic leukocytosis from previous labs
Anxiety
Depression
- on TIMBER SELECTOR Bupropion and Escitalopram
COPD HX
- cont. all OP meds
Recovered LVEF to 50-55 s/p
HX Takotsubo Cardiomyopathy
03/13/24 - 03/16/24 Pin Machine Tender which revealed nonobstructive coronary disease and Takotsubo's type cardiomyopathy.
- on ACEI and BB
HX suggestive of ETOH use disorder
- drinks approximately 3 glasses/day and smokes marijuana recreationally.
- ETOH WD prevention protocol
DVT Px: SCD; aspirin
Full Code:
Anticipated Discharge: Within 24 hours
Subjective/Interval History
-
Date of Service: January 21, 2025
Denies nausea
Objective Data
-
Labs:
Laboratory Results
01/21/25
04:14
WBC 15.9 H
Hgb 11.0 L
Hct 32.2 L
Plt Count 306
Sodium 130 L
Potassium 4.3
Chloride 101
Carbon Dioxide 25
BUN 15
Creatinine 0.7
Glucose 108 H
Calcium 8.7
Total Bilirubin 0.4
AST 34
ALT 18
Alkaline Phosphatase 63
Vital Signs:
Vital Signs
Temp Pulse Resp BP Pulse Ox
98.5 F 71 16 174/77 99
01/21/25 07:20 01/21/25 07:20 01/21/25 07:20 01/21/25 07:20 01/21/25 07:20
I&O
01/20/25 01/21/25 01/22/25
06:59 06:59 06:59
Intake Total 820 / 820 1565 / 1565
Output Total 1100 / 1100 1150 / 1150 700 / 700
Balance -280 / -280 415 / 415 -700 / -700
[2025-01-21] MEDS: DILAUDID 0.5 MG IV (10:26)
[2025-01-21] MEDS: THIAMINE INJECTION 200 MG IV (10:27)
[2025-01-21] MEDS: WELLBUTRIN XL (24 hour extended release) 300 MG PO (10:29)
[2025-01-21] MEDS: COREG 25 MG PO ×2 (10:29→19:34)
[2025-01-21] MEDS: LEXAPRO 5 MG PO (10:29)
[2025-01-21] MEDS: TYLENOL 650 MG PO ×4 (10:30→22:53)
[2025-01-21] MEDS: COLACE 100 MG PO ×2 (10:30→19:33)
[2025-01-21] MEDS: ZESTRIL 10 MG PO (10:30)
[2025-01-21] MEDS: FOLVITE 1 MG PO (10:30)
[2025-01-21] MEDS: VITAMIN D3 (cholecalciferol) 50 MCG PO (10:30)
[2025-01-21] MEDS: ASPIRIN 325 MG PO (10:31)
[2025-01-21] MEDS: SENOKOT 17.2 MG PO ×2 (10:31→19:33)
[2025-01-21 11:15] VITALS: BP 173/91
[2025-01-21 15:20] VITALS: BP 147/70
[2025-01-21 16:11] VITALS: BP 147/70; PULSE 63; O2SAT 96
[2025-01-21] MEDS: VITAMIN B1 100 MG PO (19:34)
[2025-01-21] MEDS: APRESOLINE 10 MG IV (22:53)
[2025-01-21 23:00] VITALS: BP 176/91
[2025-01-22] MEDS: TYLENOL PO (04:33)
[2025-01-22] MEDS: APRESOLINE 10 MG IV ×2 (06:13→14:21)
[2025-01-22 06:33] VITALS: BP 177/89
--- NOTE | 2025-01-22 06:56 | W.PN.ORTHO ---
Today's Communication / Plan
-
POD#2 right hip hemiarthroplasty under the direction of Dr. Hathaway
--WBAT RLE. Ambulate with walker
--Posterior hip precautions until 6-8 weeks postop
--PT/OT
--Maintain dressing. Change/reinforce as needed
--Recommend aspirin 35mg daily for 4 weeks postop for DVT prophylaxis
--AM hemoglobin pending. Continue to trend
--Case management consult for discharge planning
--[place] to be removed at 2 weeks postop. Ok for SNF to remove. If negra are removed at SNF, follow up outpatient at 4 weeks. If negra are not removed, follow up outpatient at 2 weeks
--Patient is orthopedically stable postoperatively. Will sign off. Please reach out with any additional questions or concerns.
Assessment
.
Distal Motor Intact: Yes
Dressing:
Clean, dry and intact.
Plan
.
Surgery / Date: Right hip hemiarthroplasty 01/20/25 Dr. Hathaway
DVT Prophylaxis: Aspirin
Activity:
Out of bed.
PT/OT
Subjective
.
.:
Patient resting comfortably, sleeping. She did respond to verbal stimuli. She is doing well. Pain controlled
Vital Signs and Labs
.
Vital Signs and Labs:
Temp Pulse Resp BP Pulse Ox
98.2 F 69 16 177/89 99
01/22/25 06:33 01/22/25 06:33 01/22/25 06:33 01/22/25 06:33 01/22/25 06:33
PT 13.2 Sec (11.4-14.6) 01/18/25 16:20
INR 0.96 01/18/25 16:20
Physical Exam
-
Directed exam of the right hip performed. Primaseal dressing in place with minimal strikethrough to center. Mild tenderness to lateral hip. Thigh is soft and compressible. ROM decreased. Able to plantarflex/dorsiflex the ankle. Calf soft and
nontender. NVI distally
[2025-01-22 07:01] LABS: Hematocrit 32.2 % (37.0-47.0); Hemoglobin 10.9 g/dL (12.0-16.0); Mean Corp Hgb Conc. 33.9 g/dL (33.0-37.0); Mean Corpuscular Volume 95.8 fL (81.0-99.0); Nucleated Red Blood Cells % 0 %; Platelet Count 336 10^3/uL (130-400); Red Cell Dist. Width 12.7 % (11.5-14.5)
[2025-01-22 07:26] LABS: ALT (SGPT) 20 U/L (0-35); AST (SGOT) 35 U/L (14-36); Albumin 3.5 g/dl (3.5-5.0); Alkaline Phosphatase 54 U/L (38-126); Blood Urea Nitrogen 16 mg/dl (7-17); Calcium 9.0 mg/dl (8.4-10.2); Carbon Dioxide 28 mmol/L (22-30); Chloride 104 mmol/L (98-107); Estimated Creatinine Clearance 74 ml/min; Glucose 81 mg/dl (70-99); Potassium 4.2 mmol/L (3.5-5.1); Sodium 135 mmol/L (135-145); Total Protein 5.7 g/dl (6.3-8.2); eGFR > 60.00
[2025-01-22] MEDS: SPIRIVA RESPIMAT 2.5 MCG INH (07:33)
[2025-01-22] MEDS: SYMBICORT 160/4.5 MCG INHALER INH ×2 (07:33→20:00)
[2025-01-22] MEDS: COREG 25 MG PO ×2 (08:18→19:43)
[2025-01-22] MEDS: LEXAPRO 5 MG PO (08:18)
[2025-01-22] MEDS: ZESTRIL 10 MG PO ×2 (08:18→18:05)
[2025-01-22] MEDS: SENOKOT 17.2 MG PO (08:19)
[2025-01-22] MEDS: VITAMIN B1 100 MG PO ×2 (08:19→19:43)
[2025-01-22] MEDS: ASPIRIN 325 MG PO (08:19)
[2025-01-22] MEDS: FOLVITE 1 MG PO (08:19)
[2025-01-22] MEDS: VITAMIN D3 (cholecalciferol) 50 MCG PO (08:19)
[2025-01-22] MEDS: WELLBUTRIN XL (24 hour extended release) 300 MG PO (08:19)
[2025-01-22] MEDS: TYLENOL 650 MG PO ×4 (08:19→19:43)
[2025-01-22] MEDS: COLACE 100 MG PO (08:19)
[2025-01-22 08:52] VITALS: BP 125/83; PULSE 82
--- NOTE | 2025-01-22 12:09 | CM ---
CM following re: discharge planning.
Reviewed pt's chart, met with pt. Pt's daughter and pt's sister at bedside.
According to pt is medically stable to be discharged today. Both pt and her family are aware, expressed their agreement. IMM reviewed, placed on chart, pt has a copy.
Both pt and her family were informed that [facility], [facility] home SNF and [facility] offered a bed and pt preferred [facility].
CM spoke to [facility] production director and she confirmed [email or web address] do have a bed available and pt is accepted for admission today and an auth requested.
SHAWN initiated an auth from [employer], spoke to sales representative metals Carli and based on pt's clinical pt is approved for SNF level of care at [facility] for 5 initial days from today 01/22/25 till 01/26/25 with NRD and LCD 01/26/25. Auth: [id number]. For review:
[phone]
Auth information forwarded to [facility].
Pt's daughter requested she will transport her mother to [facility].
[facility] nursing report: [phone]
Discharge instructions fax: [phone]
D/C plan: [facility]. Daughter to transport.
--- NOTE | 2025-01-22 13:29 | W.DCSUMMARY ---
Discharge Summary
Discharge Data
Date of Admission: 01/18/25
Date of Discharge: 01/22/25
Total time spent discharging patient (in min): 31
Discharge Plan
-
Patient Disposition: Fdc/SNF
Discharge Diagnosis/Procedures: Right hip fracture
Condition: Good
Diet: Regular
Activity: As tolerated
Additional Activity: WBAT RLE ambulate with walker Posterior hip precautions until 6-8 weeks postop
Wound Care: Maintain dressing. Change/reinforce as needed
--Recommend aspirin 35mg daily for 4 weeks postop for DVT prophylaxis
--AM hemoglobin pending. Continue to trend
--Case management consult for discharge planning
--[place] to be removed at 2 weeks postop. Ok for SNF to remove. If negra are removed at SNF, follow up outpatient at 4 weeks. If negra are not removed, follow up outpatient at 2 weeks
Referrals:
Rigo Aguilar MD [Family Provider, [facility]]
Prescriptions:
New
aspirin 325 mg Tablet
325 mg PO DAILY 30 Days Qty: 30 0RF
docusate sodium 100 mg Capsule
100 mg PO BID 30 Days Qty: 60 0RF
thiamine mononitrate (vit B1) 100 mg Tablet
100 mg PO BID 30 Days Qty: 60 0RF
Continued
lorazepam 0.5 mg Tablet
0.5 mg PO Q6HPRN PRN (Reason: anxiety)
carvedilol 25 mg Tablet
25 mg PO BID 30 Days Qty: 60 0RF
lisinopril 10 mg Tablet
10 mg PO DAILY 30 Days Qty: 30 0RF
bupropion HCl 300 MG tablet extended release 24 hr
300 mg PO DAILY Qty: 0 0RF
escitalopram oxalate 5 mg Tablet
5 mg PO DAILY Qty: 0 0RF
cholecalciferol (vitamin D3) [Vitamin D3] 50 mcg (2,000 unit) Capsule
50 mcg PO DAILY Qty: 0 0RF
therapeutic multivitamin Tablet
1 tab PO DAILY
Trelegy Ellipta 200-62.5-25 mcg blister with device
1 inh inhalation R DAILY
Discharge Orders:
Discharge Patient (As Directed); Ordered 01/22/25
Ordered By: Kell Gallagher
Discharge Date and Time
Print Language: SINHALA
[2025-01-22 15:16] VITALS: BP 188/60
[2025-01-22] MEDS: ATIVAN 0.5 MG PO (15:40)
--- NOTE | 2025-01-22 18:26 | W.PN.HOSP.TC ---
Today's Communication/Plan
-
Was ready for discharge but had hypertensive episode and anxiety will be discharged to SNF tomorrow
Assessment / Plan
Assessment / Plan
#Rt Hip Fx, traumatic
S/P mechanical fall
HX Chr steroids use
Acute gait dysfunction
Status post ORIF 01/20 with right hip arthroplasty
- Fx set protocol
- BP control
- Ortho following
Aspirin for DVT prophylaxis
PT evaluation recommended SNF, SNF approved, ready to go
#HTN urgency due to acute Fx pain
- on AUTOMATED CUTTING MACHINE OPERATOR Lisinopril, Carvedilol
hydralazine prn. Required 2 doses of hydralazine today. Add one-time dose of lisinopril tonight
Increase lisinopril to 20 mg every morning
Hyponatremia
Monitor
Constipation
Resolved. Stop stool softener
Leukocytosis likely secondary to fall
Monitor, does have chronic leukocytosis from previous labs
Anxiety
Depression
- on AUTOMATED CUTTING MACHINE OPERATOR Bupropion and Escitalopram
COPD HX
- cont. all OP meds
Recovered LVEF to 50-55 s/p
HX Takotsubo Cardiomyopathy
03/13/24 - 03/16/24 Alcoholic Counselor which revealed nonobstructive coronary disease and Takotsubo's type cardiomyopathy.
- on ACEI and BB
HX suggestive of ETOH use disorder
- drinks approximately 3 glasses/day and smokes marijuana recreationally.
- ETOH WD prevention protocol
DVT Px: SCD; aspirin
Full Code:
Anticipated Discharge: Within 24 hours
Subjective/Interval History
-
Date of Service: January 22, 2025
Patient noticing headache and palpitations and anxiety. Blood pressure has been high. His daughter at bedside is concerned that she is going to SNF too late tonight they declined to go tonight and will go in the morning
Objective Data
-
Labs:
Laboratory Results
01/22/25
05:42
WBC 11.8 H
Hgb 10.9 L
Hct 32.2 L
Plt Count 336
Sodium 135
Potassium 4.2
Chloride 104
Carbon Dioxide 28
BUN 16
Creatinine 0.6
Glucose 81
Calcium 9.0
Total Bilirubin 0.7
AST 35
ALT 20
Alkaline Phosphatase 54
Vital Signs:
Vital Signs
Temp Pulse Resp BP Pulse Ox
98.2 F 75 12 184/88 100
01/22/25 15:16 01/22/25 18:05 01/22/25 15:16 01/22/25 18:05 01/22/25 15:16
I&O
01/21/25 01/22/25 01/23/25
06:59 06:59 06:59
Intake Total 1565 / 1565 960 / 960
Output Total 1150 / 1150 1100 / 1100
Balance 415 / 415 -140 / -140
Review of Systems
-
All other systems: Reviewed and negative
Physical Exam
-
General: No Apparent Distress
HEENT: Moist Mucous Membranes, Anicteric and PERRLA
Respiratory: Clear to Auscultation; Negative Wheezes, Rales or Rhonchi
Cardiac: Regular Rhythm and S1/S2; Negative Murmur, Rub or Gallop
GI: Soft, Nontender, Nondistended and Normal Bowel Sounds
Musculoskeletal: No Edema
Skin: Warm and Dry; Negative Rash, Ulcers or Lesions
Neuro: Awake and AO x 3
Hematologic / Lymphatic: No Lymphadenopathy
Psych: Calm
Data Reviewed
-
Labs: Labs Reviewed by me and Discussed with Patient
[2025-01-22 23:21] VITALS: BP 170/81
[2025-01-23] MEDS: ROXICODONE 5 MG PO (00:01)
[2025-01-23] MEDS: ATIVAN 1 MG PO ×2 (00:01→14:27)
[2025-01-23 01:03] VITALS: BP 134/68
[2025-01-23] MEDS: TYLENOL 650 MG PO ×3 (01:06→11:40)
[2025-01-23] MEDS: TYLENOL PO (04:27)
[2025-01-23 07:20] VITALS: BP 196/97
[2025-01-23] MEDS: SPIRIVA RESPIMAT 2.5 MCG INH (07:49)
[2025-01-23] MEDS: SYMBICORT 160/4.5 MCG INHALER INH (07:49)
[2025-01-23] MEDS: COREG 25 MG PO (08:37)
[2025-01-23] MEDS: VITAMIN B1 100 MG PO (08:37)
[2025-01-23] MEDS: VITAMIN D3 (cholecalciferol) 50 MCG PO (08:37)
[2025-01-23] MEDS: LEXAPRO 5 MG PO (08:37)
[2025-01-23] MEDS: WELLBUTRIN XL (24 hour extended release) 300 MG PO (08:37)
[2025-01-23] MEDS: ASPIRIN 325 MG PO (08:38)
[2025-01-23] MEDS: FOLVITE 1 MG PO (08:38)
[2025-01-23] MEDS: ZESTRIL 20 MG PO (08:38)
--- NOTE | 2025-01-23 09:49 | CM ---
Addendum entered by Bhavna Harris RN 01/23/25 11:32:
CM spoke with Abbey ([phone]), dtr of pt. She prefers w/c van. Contact for [facility] provided to daughter. Daughter will call and pay by credit card. RN and apartment community assistant manager updated.
Original Note:
Reviewed the chart notes. Plan is for [facility] today. CM continues to be available to patient/family and is monitoring medical plan for needs at discharge.
[facility] nursing report: [phone]
Discharge instructions fax: [phone]
D/C plan: [facility]. Daughter to transport.
--- NOTE | 2025-01-23 10:01 | W.DCSUMMARY ---
Discharge Summary
Discharge Data
Date of Admission: 01/18/25
Date of Discharge: 01/23/25
Total time spent discharging patient (in min): 31
-
Pending Results: No
Hospital Course
Discharge diagnosis:
Right hip fracture
Consults:
Orthopedic surgery
Procedures:
Right hip hemiarthroplasty 01/20/2025
Hospital course:
Patient presented to the ED after mechanical fall was found to have right hip fracture, went to the OR for above procedure and had routine post op course. She developed hypertensive urgency in the setting of her acute pain, and her lisinopril dose
was increased. She also developed anxiety which was also treated with home meds.
Discharge to: SNF
Discharge condition: Good
Discharge exam:
General: No Apparent Distress
HEENT: Moist Mucous Membranes, Anicteric and PERRLA
Respiratory: Clear to Auscultation; Negative Wheezes, Rales or Rhonchi
Cardiac: Regular Rhythm and S1/S2; Negative Murmur, Rub or Gallop
GI: Soft, Nontender, Nondistended and Normal Bowel Sounds
Musculoskeletal: No Edema
Skin: Warm and Dry; Negative Rash, Ulcers or Lesions
Neuro: Awake and AO x 3
Hematologic / Lymphatic: No Lymphadenopathy
Psych: Calm
Discharge Plan
-
Patient Disposition: [facility]NF
Discharge Diagnosis/Procedures: Right hip fracture
Condition: Good
Diet: Regular
Activity: As tolerated
Additional Activity: WBAT RLE ambulate with walker Posterior hip precautions until 6-8 weeks postop
Wound Care: Maintain dressing. Change/reinforce as needed
--Recommend aspirin 35mg daily for 4 weeks postop for DVT prophylaxis
--AM hemoglobin pending. Continue to trend
--Case management consult for discharge planning
--Negra to be removed at 2 weeks postop. Ok for SNF to remove. If negra are removed at SNF, follow up outpatient at 4 weeks. If negra are not removed, follow up outpatient at 2 weeks
Referrals:
Rigo Aguilar MD [Family Provider, [facility]]
Prescriptions:
New
aspirin 325 mg Tablet
325 mg PO DAILY 30 Days Qty: 30 0RF
docusate sodium 100 mg Capsule
100 mg PO BID 30 Days Qty: 60 0RF
thiamine mononitrate (vit B1) 100 mg Tablet
100 mg PO BID 30 Days Qty: 60 0RF
lisinopril 10 mg Tablet
20 mg PO DAILY Qty: 30 0RF
Continued
lorazepam 0.5 mg Tablet
0.5 mg PO Q6HPRN PRN (Reason: anxiety)
carvedilol 25 mg Tablet
25 mg PO BID 30 Days Qty: 60 0RF
bupropion HCl 300 MG tablet extended release 24 hr
300 mg PO DAILY Qty: 0 0RF
escitalopram oxalate 5 mg Tablet
5 mg PO DAILY Qty: 0 0RF
cholecalciferol (vitamin D3) [Vitamin D3] 50 mcg (2,000 unit) Capsule
50 mcg PO DAILY Qty: 0 0RF
therapeutic multivitamin Tablet
1 tab PO DAILY
Trelegy Ellipta 200-62.5-25 mcg blister with device
1 inh inhalation R DAILY
Discontinued
lisinopril 10 mg Tablet
10 mg PO DAILY 30 Days Qty: 30 0RF
Discharge Orders:
Discharge Patient (As Directed); Ordered 01/23/25
Ordered By: Kell Gallagher
Discharge Date and Time
Print Language: MONGOLIAN
[2025-01-23 10:14] VITALS: BP 151/72
[2025-01-23 15:30] VITALS: BP 179/89
[2025-01-23] MEDS: APRESOLINE 10 MG IV (15:43)
== END 2025-01-23 16:38 | DRG 522 ==
LOC: 2 SOUTH 12:47
PROVIDERS: Internal Medicine; Physician Assistant; Specialist; ADMITTING PHYSICIAN Internal Medicine; ATTENDING PHYSICIAN Internal Medicine; CONSULT PHYSICIAN Orthopaedic Surgery; EMERGENCY PHYSICIAN Student in an Organized Health Care Education/Training Program; FAMILY PHYSICIAN Family Medicine
PROC: 0SRR0J9 Replacement of Right Hip Joint, Femoral Surface with Synthetic Substitute, Cemented, Open Approach (ICD-10-PCS; 2025-01-20)
DX: S72.011A Unspecified intracapsular fracture of right femur, initial encounter for closed fracture (principal); E87.1 Hypo-osmolality and hyponatremia; I51.81 Takotsubo syndrome; I10 Essential (primary) hypertension; J44.9 Chronic obstructive pulmonary disease, unspecified; E78.00 Pure hypercholesterolemia, unspecified; F17.210 Nicotine dependence, cigarettes, uncomplicated; R26.89 Other abnormalities of gait and mobility; F32.A Depression, unspecified; F41.9 Anxiety disorder, unspecified; I16.0 Hypertensive urgency; D72.829 Elevated white blood cell count, unspecified; E86.0 Dehydration; I25.10 Atherosclerotic heart disease of native coronary artery without angina pectoris; W10.9XXA Fall (on) (from) unspecified stairs and steps, initial encounter; Z88.0 Allergy status to penicillin; Z88.2 Allergy status to sulfonamides; Z79.899 Other long term (current) drug therapy; Z79.52 Long term (current) use of systemic steroids
CPT/HCPCS: 70450; 73501; 73502; 80053; 80306; 80307; 81003; 82010; 82077; 82550; 82977; 83735; 84100; 85025; 85610; 85730; 86850; 86900; 86901; 93005; 94640; 96361; 96374; 96375; 96376; 97116; 97163; 97166; 97535; 99285; 99406; C1713; C1776

== ENCOUNTER → 2025-01-26 11:10 | Outpatient (REF) | payer BC, OTHER, SELFPAY ==
[2025-01-26 11:28] LABS: Hematocrit 33.2 % (37.0-47.0); Hemoglobin 11.2 g/dL (12.0-16.0); Mean Corp Hgb Conc. 33.7 g/dL (33.0-37.0); Mean Corpuscular Volume 96.5 fL (81.0-99.0); Nucleated Red Blood Cells % 0 %; Platelet Count 436 10^3/uL (130-400); Red Cell Dist. Width 12.3 % (11.5-14.5)
[2025-01-26 11:44] LABS: Blood Urea Nitrogen 12 mg/dl (7-17); Calcium 9.0 mg/dl (8.4-10.2); Carbon Dioxide 26 mmol/L (22-30); Chloride 104 mmol/L (98-107); Glucose 88 mg/dl (70-99); Potassium 4.9 mmol/L (3.5-5.1); Sodium 135 mmol/L (135-145); eGFR > 60.00
== END ==
LOC: OLABP 11:10
PROVIDERS: ATTENDING PHYSICIAN Family Medicine
DX: D72.829 Elevated white blood cell count, unspecified (principal); E87.1 Hypo-osmolality and hyponatremia; F32.A Depression, unspecified; F41.9 Anxiety disorder, unspecified; I10 Essential (primary) hypertension; J44.9 Chronic obstructive pulmonary disease, unspecified; S72.001D Fracture of unspecified part of neck of right femur, subsequent encounter for closed fracture with routine healing
CPT/HCPCS: 36415; 80048; 85025

== ENCOUNTER → 2025-01-29 12:23 | Outpatient (REF) | payer BC, OTHER, SELFPAY ==
[2025-01-29 19:59] LABS: Hematocrit 33.9 % (37.0-47.0); Hemoglobin 11.4 g/dL (12.0-16.0); Mean Corp Hgb Conc. 33.6 g/dL (33.0-37.0); Mean Corpuscular Volume 97.7 fL (81.0-99.0); Nucleated Red Blood Cells % 0 %; Platelet Count 549 10^3/uL (130-400); Red Cell Dist. Width 12.4 % (11.5-14.5)
[2025-01-29 20:05] LABS: Blood Urea Nitrogen 16 mg/dl (7-17); Calcium 9.3 mg/dl (8.4-10.2); Carbon Dioxide 28 mmol/L (22-30); Chloride 101 mmol/L (98-107); Glucose 97 mg/dl (70-99); Potassium 4.8 mmol/L (3.5-5.1); Sodium 133 mmol/L (135-145); eGFR > 60.00
== END ==
LOC: OLABP 12:23
PROVIDERS: ATTENDING PHYSICIAN Family Medicine
DX: D72.829 Elevated white blood cell count, unspecified (principal); E87.1 Hypo-osmolality and hyponatremia; F32.A Depression, unspecified; F41.9 Anxiety disorder, unspecified; I10 Essential (primary) hypertension; J44.9 Chronic obstructive pulmonary disease, unspecified
CPT/HCPCS: 36415; 80048; 85025

== ENCOUNTER → 2025-02-01 10:51 | Outpatient (REF) | payer BC, OTHER, SELFPAY ==
[2025-02-01 11:28] LABS: Blood Urea Nitrogen 13 mg/dl (7-17); Calcium 9.2 mg/dl (8.4-10.2); Carbon Dioxide 27 mmol/L (22-30); Chloride 104 mmol/L (98-107); Glucose 81 mg/dl (70-99); Potassium 4.7 mmol/L (3.5-5.1); Sodium 135 mmol/L (135-145); eGFR > 60.00
[2025-02-01 11:47] LABS: Hematocrit 31.7 % (37.0-47.0); Hemoglobin 10.8 g/dL (12.0-16.0); Mean Corp Hgb Conc. 34.1 g/dL (33.0-37.0); Mean Corpuscular Volume 96.9 fL (81.0-99.0); Platelet Count 549 10^3/uL (130-400); Red Cell Dist. Width 12.2 % (11.5-14.5)
== END ==
LOC: OLABP 10:51
PROVIDERS: ATTENDING PHYSICIAN Family Medicine
DX: S72.001D Fracture of unspecified part of neck of right femur, subsequent encounter for closed fracture with routine healing (principal); D72.829 Elevated white blood cell count, unspecified; E87.1 Hypo-osmolality and hyponatremia; F32.A Depression, unspecified; F41.9 Anxiety disorder, unspecified; I10 Essential (primary) hypertension; J44.9 Chronic obstructive pulmonary disease, unspecified
CPT/HCPCS: 36415; 80048; 85027

== ENCOUNTER 2025-02-13 12:06 | Emergency (ER) | payer OTHER, SELFPAY ==
[2025-02-13 12:07] VITALS: BP 136/77
[2025-02-13 12:31] LABS: Hematocrit 34.0 % (37.0-47.0); Hemoglobin 11.7 g/dL (12.0-16.0); Mean Corp Hgb Conc. 34.4 g/dL (33.0-37.0); Mean Corpuscular Volume 96.3 fL (81.0-99.0); Nucleated Red Blood Cells % 0 %; Platelet Count 408 10^3/uL (130-400); Red Cell Dist. Width 11.9 % (11.5-14.5)
[2025-02-13 12:55] LABS: ALT (SGPT) 15 U/L (0-35); AST (SGOT) 19 U/L (14-36); Albumin 4.1 g/dl (3.5-5.0); Alkaline Phosphatase 64 U/L (38-126); Blood Urea Nitrogen 17 mg/dl (7-17); Calcium 9.6 mg/dl (8.4-10.2); Carbon Dioxide 27 mmol/L (22-30); Chloride 102 mmol/L (98-107); Glucose 97 mg/dl (70-99); Potassium 4.3 mmol/L (3.5-5.1); Sodium 134 mmol/L (135-145); Total Protein 6.3 g/dl (6.3-8.2); eGFR > 60.00
[2025-02-13 13:53] VITALS: BP 156/82
[2025-02-13 14:00] VITALS: BP 137/76
--- NOTE | 2025-02-13 14:00 | ED.GENMED ---
History of Present Illness
General
Chief Complaint: Blood Pressure Problem
Source: patient and records
Exam Limitations: none
Time Seen by Provider: 02/13/25 13:58
History of Present Illness
History of Present Illness:
69yoF with a history of hypertension, COPD, and R hip replacement about 3 weeks ago presenting for evaluation of low blood pressure. Patient was admitted from 01/18/25-01/23/25 for a R hip fracture. She was noted to be hypertensive during her
hospital stay and her lisinopril dose was increased and she was receiving PRN doses of IV hydralazine while in the hospital. She was discharged to [facility] for rehab and was again having issues with uncontrolled hypertension. She was initiated on
hydralazine 20mg TID and clonidine 0.1mg BID in addition to her carvedilol and lisinopril that she was already taking. She checks her blood pressure 2-3x daily at home and everything was going well. She started to feel dizzy around noon today and
took her BP which was 68/46. She called her PCP office and spoke with a nurse who told her to go to the ED for evaluation. Patient is currently feeling much better. She denies any chest pain, shortness of breath, syncope, fevers. Her BP is
137/76 during initial exam.
Past History
Past History
ED Past Medical History: HTN
ED Past Surgical History: Orthopedic
Social History
Tobacco: Smoker
Alcohol: Daily
Drug: None
Living: with family
Employment: Employed (Part-time)
Family History
Family History: Other (Noncontributory)
Phy Exam
General Physical Exam
General Presentation: well appearing and no apparent distress
General Skin: warm and dry
General Habitus: normal
General Mental: alert
General Hydration: appears well hydrated
ENT Exam
ENT Exam: normocephalic
Cardiovascular Exam
Cardiovascular Exam: regular rate/rhythm and no edema
Pulmonary Exam
Pulmonary Exam: lungs clear, no respiratory distress, no rales, no crackles, no rhonchi and no wheezing
Neurological Exam
Neurological Exam: alert
[place] Coma Scale
Eye Opening: Spontaneous
Verbal Response: Oriented
Motor Response: Obeys Commands
GCS Total Score: 15
Musculoskeletal Exam
Musculoskeletal Exam: other (R hip surgical incision well healing, c/d/i)
Skin Exam
Skin Exam: normal color and warm/dry
Psychiatric Exam
Psychiatric Exam: normal mood/affect
Course
Orders/Labs/Results
Orders:
Orders
02/13/25 12:10
EKG [Electrocardiogram (*1)] Urgent
Reason for Study: Vertigo / Dizzy
02/13/25 12:11
EKG- Treatment ONCE
02/13/25 12:19
CBC/With Diff [Complete Blood Count/With Diff] Urgent
CMP [Comprehensive Metabolic Panel] Urgent
Abnormal Lab Results
02/13/25
12:19
RBC 3.53 L 10^6/uL
(4.20-5.40)
Hgb 11.7 L g/dL
(12.0-16.0)
Hct 34.0 L %
(37.0-47.0)
MCH 33.1 H pg
(27.0-31.0)
Plt Count 408 H 10^3/uL
(130-400)
Absolute Monos (auto) 0.9 H 10^3/uL
(0.1-0.6)
Monocytes % 10.3 H %
(1.7-9.3)
Eosinophils % 7.3 H %
(0-6)
Sodium 134 L mmol/L
(135-145)
02/13/25 12:19
02/13/25 12:19
Vital Signs
Initial and Last Documented VS:
Initial Vital Signs
Temp Pulse Resp BP Pulse Ox
98.2 F 59 11 136/77 100
02/13/25 12:07 02/13/25 12:07 02/13/25 12:07 02/13/25 12:07 02/13/25 12:07
Last Documented Vital Signs
Temp Pulse Resp BP Pulse Ox
98 F 61 13 137/76 100
02/13/25 14:18 02/13/25 14:00 02/13/25 14:00 02/13/25 14:00 02/13/25 14:01
MDM/Problems Addressed
Differential Diagnosis Includes:
69yoF presenting for a low BP reading at home today of 68/46. Was dizzy at the time. Now asymptomatic and BP 136/77 on arrival. Recently started on clonidine and hydralazine for uncontrolled hypertension. She is well appearing in no distress. Exam
reassuring. Differential includes but is not limited to: iatrogenic hypotension related to antihypertensives, dehydration, anemia
Lab work obtained in triage is unremarkable. Hemoglobin 11.7 which is higher than prior value. Renal function and glucose normal. EKG shows sinus bradycardia with a heart rate of 54. No evidence of heart block or ischemic changes. Blood
pressure 137/76 on initial exam. No indication for further testing. She was advised to hold her clonidine until she is able to follow-up with her PCP. Patient monitors her blood pressure 2-3 times daily at home and was advised to continue this.
ED return precautions reviewed and she was discharged in stable condition.
*Pulse Oximetry
SaO2: 100
Patient hypoxic: no (100%)
*EKG
Interpreted by ED Provider?: Yes
EKG Intrepretation Date: 02/13/25
Heart Rate: 54
Rate: bradycardiac
Rhythm: sinus
[place]: normal axis
Interval: normal interval
QRS Pattern: normal QRS
Ischemia: no ischemia
*Critical Care Note
Total Time (30-74mins, 75-104mins- exclusive of procedures): Not Applicable
ED Attending Note
-
Portions of this chart may have been created with voice recognition software.� Occasional wrong word or��sound alike� substitutions may have occurred due to the inherent limitations of voice recognition software.
Discharge Plan
Departure
Patient Disposition: Home (Routine Discharge)
Date of Disposition: 02/13/25
Time of Disposition: 14:20
Patient with high blood pressure during this ER visit?: No
Discharge Problem:
Low blood pressure reading
Instructions: High Blood Pressure (DC)
Prescriptions:
No Action
lorazepam 0.5 mg Tablet
0.5 mg PO Q6HPRN PRN (Reason: anxiety)
carvedilol 25 mg Tablet
25 mg PO BID 30 Days Qty: 60 0RF
bupropion HCl 300 MG tablet extended release 24 hr
300 mg PO DAILY Qty: 0 0RF
escitalopram oxalate 5 mg Tablet
5 mg PO DAILY Qty: 0 0RF
cholecalciferol (vitamin D3) [Vitamin D3] 50 mcg (2,000 unit) Capsule
50 mcg PO DAILY Qty: 0 0RF
therapeutic multivitamin Tablet
1 tab PO DAILY
Trelegy Ellipta 200-62.5-25 mcg blister with device
1 inh inhalation R DAILY
aspirin 325 mg Tablet
325 mg PO DAILY 30 Days Qty: 30 0RF
docusate sodium 100 mg Capsule
100 mg PO BID 30 Days Qty: 60 0RF
thiamine mononitrate (vit B1) 100 mg Tablet
100 mg PO BID 30 Days Qty: 60 0RF
lisinopril 10 mg Tablet
20 mg PO DAILY Qty: 30 0RF
Activity Restrictions/Additional Instructions:
Stop taking clonidine until you are able to follow-up with your family doctor. Continue monitoring your blood pressure at home.
Please call your family doctor tomorrow for further instructions and to schedule a follow-up appointment.
Interventions
Interventions:
*Risk Screen - Suicide Last Done: 02/13/25 12:07
*General Assessment Last Done: 02/13/25 12:07
*Neglect/Abuse Screening Last Done: 02/13/25 12:07
*ED COVID-19 Vaccine History Last Done: 02/13/25 12:07
ED- Cardiac Assessment Last Done: 02/13/25 14:27
ED- Neurological Assessment Last Done: 02/13/25 14:27
ED- Pulmonary Assessment Last Done: 02/13/25 14:27
Discharge Date and Time
Print Language: INDONESIAN
[2025-02-13 14:17] VITALS: BMI 19.7
== END 2025-02-13 14:30 | disposition home or self-care (01) ==
LOC: EMR 12:06
PROVIDERS: Emergency Medicine; EMERGENCY PHYSICIAN Student in an Organized Health Care Education/Training Program
DX: I10 Essential (primary) hypertension (principal); J44.9 Chronic obstructive pulmonary disease, unspecified; F17.200 Nicotine dependence, unspecified, uncomplicated; Z96.641 Presence of right artificial hip joint
CPT/HCPCS: 99284; 80053; 85025; 93005

== ENCOUNTER 2025-03-11 16:50 | Emergency (ER) | payer OTHER, SELFPAY ==
[2025-03-11 16:52] VITALS: BP 179/74
[2025-03-11 17:14] LABS: Hematocrit 43.3 % (37.0-47.0); Hemoglobin 14.4 g/dL (12.0-16.0); Mean Corp Hgb Conc. 33.3 g/dL (33.0-37.0); Mean Corpuscular Volume 95.2 fL (81.0-99.0); Nucleated Red Blood Cells % 0 %; Platelet Count 434 10^3/uL (130-400); Red Cell Dist. Width 12.2 % (11.5-14.5)
[2025-03-11 18:04] LABS: Troponin I < 0.012 ng/ml
[2025-03-11 18:09] LABS: ALT (SGPT) 19 U/L (0-35); AST (SGOT) 27 U/L (14-36); Albumin 3.9 g/dl (3.5-5.0); Alkaline Phosphatase 61 U/L (38-126); Blood Urea Nitrogen 13 mg/dl (7-17); Calcium 8.8 mg/dl (8.4-10.2); Carbon Dioxide 24 mmol/L (22-30); Chloride 106 mmol/L (98-107); Glucose 95 mg/dl (70-99); Potassium 4.5 mmol/L (3.5-5.1); Sodium 135 mmol/L (135-145); Total Protein 6.1 g/dl (6.3-8.2); eGFR > 60.00
--- NOTE | 2025-03-11 18:59 | ED.GENMED ---
History of Present Illness
General
Chief Complaint: Dizziness
Time Seen by Provider: 03/11/25 17:16
History of Present Illness
History of Present Illness:
69-year-old female with history of high blood pressure presenting for acute onset of nausea, vomiting, dizziness. Patient reports that she has issues with high blood pressure, is on Coreg and lisinopril at baseline, however when her blood pressure
is greater than 170 systolic, she takes hydralazine. She took hydralazine last night around 1045. Prior to arrival she felt like her blood pressure dropped. She checked it and it was 120/80 which is low per her, and she suddenly felt very dizzy
with nausea and multiple episodes of vomiting. She called her daughter and medics came to the house. Medics administered Zofran and by time arrival patient reports improvement of symptoms. Denies ever having this in the past. Denies chest pain
or difficulty breathing. Denies focal weakness or sensory deficits. Denies visual changes. Denies additional acute medical complaints
Past History
Past History
ED Past Medical History: HTN
ED Past Surgical History: Orthopedic
Social History
Tobacco: Smoker
Alcohol: Daily
Drug: None
Living: with family
Employment: Employed (Part-time)
Family History
Family History: Other (Noncontributory)
Phy Exam
Physical Exam
Physical Exam:
General: Well-appearing, no clinical signs of dehydration, nontoxic and in no acute distress
HEENT: protecting airway
Neck: appears supple
CV: Normal heart rate, regular rhythm
Resp: No accessory muscle use, no increased work of breathing, lungs clear to auscultation bilaterally
Abd: No distention, no erythema, pulses and sensation intact
Neuro: alert, no focal neurologic deficit
: deferred
Rectal: deferred
Psych: Normal affect
Skin: Intact
Course
Orders/Labs/Results
Orders:
Orders
03/11/25 16:51
Electrocardiogram (*1) Urgent
Reason for Study: Vertigo / Dizzy
EKG- Treatment ONCE
03/11/25 16:57
Complete Blood Count/With Diff Urgent
03/11/25 17:27
CT Head W/o Iv Contrast Urgent
Comment:
Reason For Exam: dizziness
03/11/25 17:29
Comprehensive Metabolic Panel Urgent
Troponin I Urgent
03/11/25 19:05
Orthostatic VS- Treatment ONCE
Abnormal Lab Results
03/11/25 03/11/25
16:57 17:29
WBC 20.1 H 10^3/uL
(4.8-10.8)
MCH 31.6 H pg
(27.0-31.0)
Plt Count 434 H 10^3/uL
(130-400)
Abs Immat Gran (auto) 0.1 H 10^3/uL
(0-0.05)
Absolute Neuts (auto) 14.9 H 10^3/uL
(1.4-6.5)
Absolute Monos (auto) 1.0 H 10^3/uL
(0.1-0.6)
Immature Gran % 0.6 H %
(0-0.5)
Lymphocytes % 17.1 L %
(20.5-51.1)
Total Protein 6.1 L g/dl
(6.3-8.2)
03/11/25 16:57
03/11/25 17:29
Vital Signs
Initial and Last Documented VS:
Initial Vital Signs
Temp Pulse Resp BP Pulse Ox
97.7 F 77 20 179/74 99
03/11/25 16:52 03/11/25 16:52 03/11/25 16:52 03/11/25 16:52 03/11/25 16:52
Last Documented Vital Signs
Temp Pulse Resp BP Pulse Ox
97.7 F 77 20 179/74 99
03/11/25 16:52 03/11/25 16:52 03/11/25 16:52 03/11/25 16:52 03/11/25 19:03
MDM/Problems Addressed
MDM/Problems Addressed:
69-year-old female with history of high blood pressure presenting for acute onset of nausea, vomiting, dizziness. Vital signs arrival significant for high blood pressure, however patient notes that her blood pressure is typically elevated.
On exam patient is resting comfortably. Notes that she currently has no dizziness or nausea, received Zofran prior to arrival. Unknown etiology of preceding symptoms. Patient notes that she felt like her blood pressure had dropped preceding
symptoms, so possible brief episode of hypotension. No focal neurologic deficits on exam with lower suspicion for acute CVA. However, in the setting of acute onset of dizziness with nausea vomiting feel CT brain is warranted for further
assessment. Will obtain orthostatics. Vertigo is a consideration, however again, currently resolved. EKG is sinus rhythm, no arrhythmia strong suspicion for cardiac pathology. Will screen for laboratory analysis to ensure no electrolyte
derangement
19:50 -patient's labs are unremarkable. Normal orthostatics. CT brain negative. On reassessment patient remained stable, denies any additional nausea or dizziness. Blood pressure remains elevated, however patient is due for her Coreg. Will
administer. Advised that she check her blood pressure at home and if her systolic remains elevated at 170, to take her hydralazine, which she is instructed to do so. She has a follow-up appoint with her site supervisor on Wednesday. Advised discussing
with her doctor her blood pressure regiment. Otherwise do feel stable for discharge with close interval follow-up with her doctors. Return precautions discussed and patient verbalized understanding
*Pulse Oximetry
SaO2: 99
Oxygen Mode of Delivery: Room air
Patient hypoxic: no
*EKG
Interpreted by ED Provider?: Yes
EKG Intrepretation Date: 03/11/25
EKG Intrepretation Time: 19:03
Interpretation: normal
Comparison EKG: no changes
Heart Rate: 60
Rate: normal
Rhythm: sinus
[place]: normal axis
Interval: normal interval
QRS Pattern: normal QRS
Ischemia: no ischemia
*Critical Care Note
Total Time (30-74mins, 75-104mins- exclusive of procedures): Not Applicable
ED Attending Note
-
Portions of this chart may have been created with voice recognition software.� Occasional wrong word or��sound alike� substitutions may have occurred due to the inherent limitations of voice recognition software.
Discharge Plan
Departure
Prescriptions:
No Action
lorazepam 0.5 mg Tablet
0.5 mg PO Q6HPRN PRN (Reason: anxiety)
carvedilol 25 mg Tablet
25 mg PO BID 30 Days Qty: 60 0RF
bupropion HCl 300 MG tablet extended release 24 hr
300 mg PO DAILY Qty: 0 0RF
escitalopram oxalate 5 mg Tablet
5 mg PO DAILY Qty: 0 0RF
cholecalciferol (vitamin D3) [Vitamin D3] 50 mcg (2,000 unit) Capsule
50 mcg PO DAILY Qty: 0 0RF
therapeutic multivitamin Tablet
1 tab PO DAILY
Trelegy Ellipta 200-62.5-25 mcg blister with device
1 inh inhalation R DAILY
aspirin 325 mg Tablet
325 mg PO DAILY 30 Days Qty: 30 0RF
docusate sodium 100 mg Capsule
100 mg PO BID 30 Days Qty: 60 0RF
thiamine mononitrate (vit B1) 100 mg Tablet
100 mg PO BID 30 Days Qty: 60 0RF
lisinopril 10 mg Tablet
20 mg PO DAILY Qty: 30 0RF
Referrals:
Rigo Aguilar MD [Family Provider, Family Practice]
Interventions
Interventions:
*General Assessment Last Done: 03/11/25 16:52
ED- Neurological Assessment Last Done: 03/11/25 17:17
ED- Cardiac Assessment Last Done: 03/11/25 17:17
Discharge Date and Time
Print Language: ARMENIAN
[2025-03-11 19:32] VITALS: BP 189/94; BP 190/87; BP 203/90; PULSE 64; PULSE 70
[2025-03-11] MEDS: COREG 25 MG PO (20:15)
== END 2025-03-11 20:30 | disposition home or self-care (01) ==
LOC: EMR 16:50
PROVIDERS: EMERGENCY PHYSICIAN Student in an Organized Health Care Education/Training Program; FAMILY PHYSICIAN Family Medicine
DX: R42 Dizziness and giddiness (principal); I10 Essential (primary) hypertension; F17.200 Nicotine dependence, unspecified, uncomplicated
CPT/HCPCS: 99284; 70450; 80053; 84484; 85025; 93005

== ENCOUNTER → 2025-03-28 14:57 | Outpatient (REF) | payer OTHER, SELFPAY | LOC: RCS 14:57 | PROVIDERS: ATTENDING PHYSICIAN Internal Medicine Cardiovascular Disease; FAMILY PHYSICIAN Family Medicine | DX: I51.81 Takotsubo syndrome (principal) | CPT/HCPCS: 93306 ==